=== PATIENT | female | born 1945 | race African-American/Black ===

== ENCOUNTER 2017-07-07 03:24 | Observation (INO) ==
[2017-07-07] MEDS ORDERED: 0.9 % Sodium Chloride 1,000 ML IVC ONE (04:03)
--- NOTE | 2017-07-07 04:07 | Emergency Department Note ---
Disposition Clinical Impression: Hyponatremia, Atrial fibrillation with RVR Left lower lobe pneumonia Qualifiers: Pneumonia type: due to unspecified organism Qualified Code(s): J18.1 - Lobar pneumonia, unspecified organism Disposition: Admitted As Inpatient Condition: Fair Referrals: NONE,PCP [Primary Care Provider] - Amarjit Brock, INTERNAL CONTROL SPECIALIST [Family Provider] - Forms: ED Satisfaction Letter Time of Disposition: 05:37 General Adult HPI - General Chief complaint: ED Dizziness Stated complaint: dizzy,and fall Time Seen by Provider: 07/07/17 03:47 Source: patient, family, EMS Mode of arrival: EMS Limitations: no limitations Nursing Notes Reviewed: Yes Vital Signs Reviewed: Yes - History of Present Illness HPI Narrative: Current over the patient and the daughter. Patient apparently got a bed to go to the bathroom and fell and could not get herself up. This is not a new occurrence but something that happens frequently. Patient mostly complains of weakness at home and stays in bed most of the time. No new symptom that family reports is a cough over the last couple of days. Patient denies any injury from the fall. Pt Subjective Complaint: Fall Onset (ago): hour(s) Pain Scale: 9 (Patient complains of severe pain but cannot localize it anywhere. Meanwhile she smiling while she tells me her pain is bad) Consistency: constant Associated symptoms: Reports: cough Treatments Prior to Arrival: none - Related Data Home Medications Medication Instructions Recorded Confirmed No Known Home Drugs 07/07/17 07/07/17 Allergies Allergy/AdvReac Type Severity Reaction Status Date / Time No Known Allergies Allergy Verified 07/07/17 05:00 All systems ED: reviewed and negative except as stated. Constitutional: Denies: fever, chills ENT ED: Denies: ear pain, throat pain, congestion Cardiovascular: Denies: chest pain, palpitations Respiratory: Reports: cough. Denies: dyspnea Gastrointestinal: Denies: abdominal pain, nausea, vomiting, diarrhea Genitourinary: Denies: urgency, dysuria, frequency Integumentary: Denies: rash Neurological: Denies: headache Past Medical History - Past Medical History Attestation: Yes The following information was validated with the patient. Source: patient, obtained from family, nursing notes reviewed Medical history: Reports: CVA, diabetes Psychiatric history: Reports: no psych history - Social History Smoking Status: Never smoker Physical Exam - General Limitations: no limitations General appearance: alert, in no apparent distress - Head Head exam: atraumatic, normocephalic, normal inspection - Eye Eye exam: Present: normal appearance, PERRL, EOMI. Absent: scleral icterus, conjunctival injection - ENT ENT exam: normal exam, normal oropharynx, mucous membranes moist, TM's normal bilaterally, normal external ear exam - Neck Neck exam: Present: normal inspection, full ROM. Absent: tenderness, meningismus - Chest Chest inspection: Present: normal inspection, symmetric chest wall rise. Absent : tenderness - Respiratory Respiratory exam: Present: normal lung sounds bilaterally. Absent: respiratory distress - Cardiovascular Cardiovascular exam: Present: tachycardia, irregular rhythm, normal heart sounds - Abdominal Exam Abdominal exam: Present: soft, Non-Tender, normal bowel sounds - Extremities Exam Extremities exam: Present: normal inspection. Absent: tenderness, pedal edema - Neurological Exam Neurological exam: Present: alert - Psychiatric Psychiatric exam: Present: normal affect, normal mood - Skin Skin exam: Present: warm, dry. Absent: rash Course Course Narrative: Patient reportedly fell after getting up and going to the bathroom at home in the middle the night. She could not get herself up. Family members found her about 1:00 in the morning. Last time they checked on her was about 8:00. It does not look like she sustained any injuries from the fall. This is not a new issue for the patient either. I am really not able to clarify as to why they presented today as opposed to any other time and she is on. There is a new history of cough. I am going to do a workup on the patient. Eventually will get her up and ambulate her. Disposition will be based on diagnostic results and reevaluation. - Reevaluation(s) Reevaluation #1: Workup shows left lower lobe pneumonia. Patient also has hyponatremia and she has atrial fibrillation. She does not see a doctor so we really do not know what her actual chronic medical conditions are because she does not see anybody. She will need to have these other things workup as well. I spoke with the hospitalist Dr. León and arranged to have her admitted to the hospital. She so far has been treated with normal saline and we will order Levaquin IV. Time: 05:34 - Consultations Consultation #1: Dr. León, hospitalist - we discussed the case and he is accepting the patient for admission to the hospital. Time: 05:30 Vital Signs Temperature 98.2 F 07/07/17 03:25 Pulse Rate 129 07/07/17 03:25 Respiratory Rate 19 07/07/17 03:25 Blood Pressure 112/86 07/07/17 03:25 O2 Sat by Pulse Oximetry 96 07/07/17 03:25 Temperature 98.2 F 07/07/17 03:25 Pulse Rate 126 07/07/17 05:22 Respiratory Rate 18 07/07/17 05:22 Blood Pressure 130/71 07/07/17 05:22 O2 Sat by Pulse Oximetry 94 07/07/17 05:22 Oxygen Delivery Oxygen Delivery Room Air Medical Decision Making - Medical Records Medical records reviewed: Yes I reviewed the patient's medical records. - Lab Data Lab results reviewed: Yes I reviewed the patient's lab results. Result diagrams: 07/07/17 03:40 07/07/17 03:40 Lab Results 07/07/17 07/07/17 07/07/17 Range/Units 03:40 03:40 03:40 WBC 23.2 H (4.3-11.1) K/mcL RBC 4.57 (3.82-4.97) M/mcL Hgb 13.3 (11.5-15.4) g/dL Hct 38.9 (35.3-44.9) % MCV 85.1 (83.0-100.0) fL MCH 29.1 (28.0-33.3) pg MCHC 34.2 (31.6-35.5) g/dL RDW 13.2 (11.5-14.5) % Plt Count 296 (140-400) K/mcL MPV 10.4 (9.4-12.4) fL Immature Gran % 0.6 (0-4) % Seg Neutrophils % 87.8 % Lymphocytes % 6.0 % Monocytes % 5.3 % Eosinophils % 0.0 % Basophils % 0.3 % Neutrophils # 20.4 H (1.6-8.9) K/mcL Lymphocytes # 1.4 (0.6-4.6) K/mcL Monocytes # 1.2 (0.0-1.3) K/mcL Eosinophils # 0.0 (0.0-0.6) K/mcL Basophils # 0.1 (0.0-0.2) K/mcL Sodium 126 L (136-145) mEq/L Potassium 3.3 L (3.5-5.1) mEq/L Chloride 85 L (98-107) mEq/L Carbon Dioxide 30 H (23-29) mEq/L BUN 22 (8-23) mg/dL Creatinine 1.35 H (0.60-1.20) mg/dL Est GFR ( Amer) 46 L (> 60) Est GFR (Non-Af Amer) 38 L (> 60) BUN/Creatinine Ratio 16 (6-26) Glucose 325 H (70-105) mg/dL Calculated Osmolality 278 L (280-300) Lactic Acid (0.5-2.2) mmol/L Calcium 9.2 (8.6-10.3) mg/dL Troponin I 0.03 (< 0.04) ng/mL B-Natriuretic Peptide 70 (Less than 100) pg/mL Urine Color (Yellow) Urine Clarity (Clear) Urine pH (5.0-8.0) pH Units Ur Specific [place] (1.010-1.025) Urine Protein (Neg-Trace) mg/dL Urine Glucose (UA) (Normal) mg/dL Urine Ketones (Negative) mg/dL Urine Blood (Negative) Urine Nitrite (Negative) Urine Bilirubin (Negative) Urine Urobilinogen (Normal) mg/dL Ur Leukocyte Esterase (Negative) Urine Microscopic RBC (0-3) per hpf Urine Microscopic WBC (0-3) per hpf Ur Squamous Epith Cells (None-Few) per lpf Ur Transition Epith Cell (None-Few) per hpf Urine Bacteria (None-Few) per hpf Hyaline Casts (None-Few) per lpf Urine Mucus (Few) Ur Culture Indicated? (NO) 07/07/17 07/07/17 Range/Units 03:40 04:22 WBC (4.3-11.1) K/mcL RBC (3.82-4.97) M/mcL Hgb (11.5-15.4) g/dL Hct (35.3-44.9) % MCV (83.0-100.0) fL MCH (28.0-33.3) pg MCHC (31.6-35.5) g/dL RDW (11.5-14.5) % Plt Count (140-400) K/mcL MPV (9.4-12.4) fL Immature Gran % (0-4) % Seg Neutrophils % % Lymphocytes % % Monocytes % % Eosinophils % % Basophils % % Neutrophils # (1.6-8.9) K/mcL Lymphocytes # (0.6-4.6) K/mcL Monocytes # (0.0-1.3) K/mcL Eosinophils # (0.0-0.6) K/mcL Basophils # (0.0-0.2) K/mcL Sodium (136-145) mEq/L Potassium (3.5-5.1) mEq/L Chloride (98-107) mEq/L Carbon Dioxide (23-29) mEq/L BUN (8-23) mg/dL Creatinine (0.60-1.20) mg/dL Est GFR ( Amer) (> 60) Est GFR (Non-Af Amer) (> 60) BUN/Creatinine Ratio (6-26) Glucose (70-105) mg/dL Calculated Osmolality (280-300) Lactic Acid 1.9 (0.5-2.2) mmol/L Calcium (8.6-10.3) mg/dL Troponin I (< 0.04) ng/mL B-Natriuretic Peptide (Less than 100) pg/mL Urine Color Yellow (Yellow) Urine Clarity Clear (Clear) Urine pH 6.0 (5.0-8.0) pH Units Ur Specific [place] 1.020 (1.010-1.025) Urine Protein 100 H (Neg-Trace) mg/dL Urine Glucose (UA) 500 H (Normal) mg/dL Urine Ketones Negative (Negative) mg/dL Urine Blood Negative (Negative) Urine Nitrite Negative (Negative) Urine Bilirubin Negative (Negative) Urine Urobilinogen Normal (Normal) mg/dL Ur Leukocyte Esterase Negative (Negative) Urine Microscopic RBC 0-3 (0-3) per hpf Urine Microscopic WBC 0-3 (0-3) per hpf Ur Squamous Epith Cells Moderate H (None-Few) per lpf Ur Transition Epith Cell Few (None-Few) per hpf Urine Bacteria Moderate H (None-Few) per hpf Hyaline Casts Few (None-Few) per lpf Urine Mucus Few (Few) Ur Culture Indicated? NO (NO) - Radiology Data Radiology results reviewed: Yes I reviewed the patient's radiology results. - EKG Data EKG #1 EKG attestation: Yes I reviewed and interpreted this EKG. EKG results narrative: EKG performed at 3:33 AM shows atrial fibrillation with rapid ventricular response at a rate of 119. Normal axis. Good R-wave progression across precordium. Nonspecific ST/T-wave abnormalities but no obvious ischemic changes. Other than the TN interval, intervals are within normal limits.
[2017-07-07 04:10] LABS: Basophils # 0.1 K/mcL (0.0-0.2); Basophils % 0.3 %; Hematocrit 38.9 % (35.3-44.9); Hemoglobin 13.3 g/dL (11.5-15.4); Immature Granulocytes % 0.6 % (0-4); Lymphocytes # 1.4 K/mcL (0.6-4.6); Mean Corpuscular HGB Conc 34.2 g/dL (31.6-35.5); Mean Corpuscular Hemoglobin 29.1 pg (28.0-33.3); Mean Corpuscular Volume 85.1 fL (83.0-100.0); Mean Platelet Volume 10.4 fL (9.4-12.4); Monocytes # 1.2 K/mcL (0.0-1.3); Monocytes % 5.3 %; Neutrophils # 20.4 K/mcL (1.6-8.9); Platelet Count 296 K/mcL (140-400); Red Blood Count 4.57 M/mcL (3.82-4.97); Red Cell Distribution Width 13.2 % (11.5-14.5); Segmented Neutrophils % 87.8 %
[2017-07-07 04:17] LABS: Calcium 9.2 mg/dL (8.6-10.3); Potassium 3.3 mEq/L (3.5-5.1)
[2017-07-07 04:21] LABS: Troponin I 0.03 ng/mL (< 0.04)
[2017-07-07 04:32] LABS: Bilirubin,Urine Negative (Negative); Blood,Urine Negative (Negative); Clarity,Urine Clear (Clear); Color,Urine Yellow (Yellow); Glucose,Urine (UA) 500 mg/dL (Normal); Ketones,Urine Negative (Negative); Leukocyte Esterase,Urine Negative (Negative); Nitrite,Urine Negative (Negative); Protein,Urine 100 mg/dL (Neg-Trace); Urobilinogen,Urine Normal (Normal)
[2017-07-07 04:37] LABS: Bacteria,Urine Moderate per hpf (None-Few); Hyaline Casts,Urine Few per lpf (None-Few); RBC,Urine 0-3 per hpf (0-3); Squamous Epithelial Cell,Urine Moderate per lpf (None-Few); WBC,Urine 0-3 per hpf (0-3)
[2017-07-07 04:38] LABS: Mucus,Urine Few (Few); Transitional Epi Cells,Urine Few per hpf (None-Few)
[2017-07-07] MEDS ORDERED: Levofloxacin 750 MG/150 ML 750 MG/150 ML BAG IVPB ONE (05:29)
[2017-07-07] MEDS ORDERED: Naloxone 0.4 MG/ML INJ IVP PRN (06:31)
[2017-07-07] MEDS ORDERED: 0.9 % Sodium Chloride 1,000 ML IVC SCH (06:31)
[2017-07-07] MEDS ORDERED: *HR* Digoxin 0.5 MG/2 ML AMPUL IVP ONE (07:10)
[2017-07-07] MEDS: 0.9 % Sodium Chloride w KCl 20 MEQ/1,000 ML MLS IVC SCH ×2 (08:19→20:41)
--- NOTE | 2017-07-07 11:51 | Internal Med History&Physical ---
Date of Encounter: 07/07/17 Time of Encounter: 11:15 Assessment and Plan (1) Fall Current visit: Yes Status: Acute Will order PT and OT evaluation. Qualifiers: Encounter type: initial encounter Qualified Code(s): W19.XXXA - Unspecified fall, initial encounter (2) Atrial fibrillation with RVR Current visit: Yes Status: Acute Duration unknown. She had regular rhythm on my examination. Suspect paroxysmal AF. An echocardiogram was ordered. TSH was normal at 0.755. Will start aspirin for history of CVA. Her fall risk makes her increased risk for complications from full anticoagulation medication. (3) DM2 (diabetes mellitus, type 2) Current visit: Yes Status: Acute Will check hemoglobin A1c and do Accu-Cheks with SSI. Qualifiers: Diabetes mellitus complication status: with kidney complications Diabetes mellitus complication detail: with chronic kidney disease Diabetes mellitus senior care insulin use: without coding quality coordinator use Chronic kidney disease stage: stage 3 (moderate) Qualified Code(s): E11.22 - Type 2 diabetes mellitus with diabetic chronic kidney disease; N18.3 - Chronic kidney disease, stage 3 ( moderate); N18.3 - Chronic kidney disease, stage 3 (moderate) (4) Hypokalemia Current visit: Yes Status: Acute Suspect secondary to reported vomiting and diarrhea. Will give IV fluids and supplemental potassium and monitor labs. (5) Leukocytosis Current visit: Yes Status: Acute Possible pneumonia left lower lung seen on chest x-ray. Will order CT to further evaluate. Levaquin was started in the emergency room. Qualifiers: Leukocytosis type: unspecified Qualified Code(s): D72.829 - Elevated white blood cell count, unspecified (6) Weight loss Current visit: Yes Status: Acute Will order CT chest abdomen and pelvis. Suspect poorly controlled DM 2. (7) Left lower lobe pneumonia Current visit: Yes Status: Acute We will continue antibiotics and probiotics as per above. Qualifiers: Pneumonia type: due to unspecified organism Qualified Code(s): J18.1 - Lobar pneumonia, unspecified organism (8) Hyponatremia Current visit: Yes Status: Acute At least partially due to hyperglycemia. We will give IV fluids and monitor labs. Internal Medicine - H&P: HPI Chief complaint: Fall Admitted From: Emergency Dept Plans for Post Hospital Care: Home History of present illness: Ms. Fleming is a 72 year old female who came to emergency room after her daughter found her in the floor at home at 0100. Patient reports she had attempted to go to the bathroom approximately 11 PM and had fallen. She did not call for help to other family members who live in the house because she " did not want to bother them". Her daughter found her and noted her left leg seemed to be in an unusual position so called the squad. She was evaluated in emergency room and admitted to [facility] for ongoing care needs. The patient denies significant injury from the present fall. Family reports she has fallen approximately once per month on average for the last 3-4 months. She typically uses a walker since she had a stroke approximately 20 years ago leaving her with right hemiparesis. She has not followed with a primary care provider for at least 15 years. She denies any seizures. Past Med Surg Social Fam HX - Past Medical History Medical history: CVA, diabetes Psychiatric history: no psych history - Social History Smoking Status: Never smoker Internal Medicine - H&P: Meds No Known Home Drugs 07/07/17 [History] 3 Allergy/AdvReac Type Severity Reaction Status Date / Time No Known Allergies Allergy Verified 07/07/17 05:00 All Systems PM: A 10-system review of systems was performed and is negative for pertinent findings except as documented above in the HPI. Review of systems: Gen.: Her daughter estimates she has lost approximately 30 pounds in the past 2 years, unintentionally Cardiovascular: She has history of hypertension but denies MO heart failure angina DVT or pulmonary embolus. She also denies previous history of atrial fibrillation which was found on EKG in emergency room. Respiratory: She smoked approximately age [age] never up to 1 pack per day. She denies chronic lung disease and does not use home oxygen GI: She had remote cholecystectomy. She denies disorders of her liver or exocrine pancreas. : She denies hematuria dysuria or kidney stones Neurologic: She had a stroke approximately 20 years ago leaving her with right hemiparesis. She is able to walk with a walker. Family reports increased weakness however over the past 1-2 years. Endocrine: She was diagnosed with DM 2 many years ago. She stop seeing her PCP approximately 15 years ago when she was informed that metformin was no longer adequately controlling her diabetes and she would need to start insulin shots. She does not check her blood sugars at all. She denies known thyroid disease. She is uncertain about her lipid status. Hematology/oncology: She denies blood disorders cancers or anemia Psychiatric: She denies anxiety depression or other mental health issues [place] skeletal: She has DJD but denies gout or other bone joint or muscle disorders. - Constitutional Vitals: Temp Pulse Resp BP Pulse Ox 98.3 F 106 18 114/75 95 07/07/17 06:51 07/07/17 06:51 07/07/17 06:51 07/07/17 06:51 07/07/17 06:51 Exam: Gen.: She is a well-developed well-nourished female lying in bed who appears in no acute distress HEENT: Head is atraumatic and normocephalic. Eyes: EOMI. There is no scleral icterus. Mouth: Mucosa is moist. Neck: Supple and nontender. There is no thyromegaly or adenopathy noted. Heart: Regular without murmurs gallops or ectopics Lungs: No wheezes or crackles are heard. Abdomen: Soft and nontender. No masses or guarding are noted. Extremities: There is no cyanosis edema or clubbing noted. Dorsalis pedis and posttibial pulses are trace palpable bilaterally. Neurologic: Mental status: She is able answer a few questions but seems to be a fair to poor historian overall. Most of history is supplied by family. Cranial nerves: Smile is symmetric. Forehead wrinkles bilaterally. Tongue protrudes midline. EOMI. Motor: There is no pronator drift with the left hand. She cannot pronate the right arm well because of previous stroke. She holds her right hand in a flexed position.. Cerebellar: Finger to nose is intact bilaterally. Skin: Warm and dry Internal Med - H&P Results - Labs CBC & Chem 7: 07/07/17 03:40 07/07/17 03:40 Labs: Cardiac Enzymes 07/07/17 Range/Units 07:51 Troponin I 0.07 H* (< 0.04) ng/mL - VTE Reasons for not Prescribing Prophylaxis: Refused by patient
[2017-07-07] MEDS: Magnesium Oxide 400 MG TABLET PO SCH (20:36)
[2017-07-08 03:51] LABS: Basophils # 0.1 K/mcL (0.0-0.2); Basophils % 0.3 %; Eosinophils % 0.2 %; Hematocrit 34.5 % (35.3-44.9); Hemoglobin 11.8 g/dL (11.5-15.4); Immature Granulocytes % 0.5 % (0-4); Lymphocytes # 1.5 K/mcL (0.6-4.6); Mean Corpuscular HGB Conc 34.2 g/dL (31.6-35.5); Mean Corpuscular Hemoglobin 29.1 pg (28.0-33.3); Mean Platelet Volume 10.4 fL (9.4-12.4); Monocytes % 5.2 %; Platelet Count 267 K/mcL (140-400); Red Blood Count 4.06 M/mcL (3.82-4.97); Segmented Neutrophils % 85.8 %
[2017-07-08 04:24] LABS: Alanine Aminotransferase 8 Units/L (7-52); Albumin 3.4 g/dL (3.5-5.7); Alkaline Phosphatase 55 Units/L (34-104); Aspartate Amino Transferase 16 Units/L (13-39); BUN/Creatinine Ratio 19 (6-26); Bilirubin,Total 0.6 mg/dL (0.3-1.0); Blood Urea Nitrogen 14 mg/dL (8-23); Calcium 8.7 mg/dL (8.6-10.3); Carbon Dioxide 27 mEq/L (23-29); Chloride 95 mEq/L (98-107); Chol/HDL Ratio 3.7 (0-4.9); Cholesterol 165 mg/dL (< 200); Globulin 3.4 g/dL (2.4-3.5); Glucose 308 mg/dL (70-105); HDL Cholesterol 45 mg/dL (40-59); LDL Cholesterol,Calculated 104 mg/dL (0-99); Osmolality,Calculated 286 (280-300); Potassium 3.3 mEq/L (3.5-5.1); Sodium 132 mEq/L (136-145); Total Protein 6.8 g/dL (6.4-8.9); Triglycerides 81 mg/dL (< 150); eGFR For African Americans > 60 (> 60); eGFR For Non-African Americans > 60 (> 60)
[2017-07-08] MEDS: Insulin LISPRO 300 UNITS/3 ML VIAL SQ SCH ×3 (07:36→16:39)
[2017-07-08] MEDS: Aspirin 81 MG TAB.CHEW PO SCH (07:36)
[2017-07-08] MEDS: Lactobacillus 1 EACH CAP.SPRINK PO SCH ×2 (07:36→19:52)
[2017-07-08] MEDS: Magnesium Oxide 400 MG TABLET PO SCH ×2 (07:36→19:52)
[2017-07-08] MEDS: 0.9 % Sodium Chloride w KCl 20 MEQ/1,000 ML MLS IVC SCH (07:39)
--- NOTE | 2017-07-08 09:56 | Internal Med Progress Note ---
Date of Encounter: 07/08/17 Time of Encounter: 09:45 - Assessment and plan (1) Fall Current Visit: Yes Status: Acute Assessment and plan: July 08. Continue PT and OT intervention. Qualifiers: Encounter type: initial encounter Qualified Code(s): W19.XXXA - Unspecified fall, initial encounter (2) Atrial fibrillation with RVR Current Visit: Yes Status: Acute Assessment and plan: July 08. Duration of atrial fibrillation unknown. It is paroxysmal. Echocardiogram report reviewed showing LVEF of 70%. There was increased thickness of the interventricular septum at 1.30 cm. Atria were normal in size. No significant valvular dysfunction was seen. Continue aspirin. Will add metoprolol. (3) DM2 (diabetes mellitus, type 2) Current Visit: Yes Status: Acute Assessment and plan: July 08. Hemoglobin A1c is pending. Continue Accu-Cheks with SSI. Qualifiers: Diabetes mellitus complication status: with kidney complications Diabetes mellitus complication detail: with chronic kidney disease Diabetes mellitus alf insulin use: without terminal worker use Chronic kidney disease stage: stage 3 (moderate) Qualified Code(s): E11.22 - Type 2 diabetes mellitus with diabetic chronic kidney disease; N18.3 - Chronic kidney disease, stage 3 ( moderate); N18.3 - Chronic kidney disease, stage 3 (moderate) (4) Hypokalemia Current Visit: Yes Status: Acute Assessment and plan: July 08. Potassium unchanged at 3.3. Will add ongoing supplemental potassium and monitor labs. (5) Leukocytosis Current Visit: Yes Status: Acute Assessment and plan: July 08. Improved to 18.6. Continue antibiotic and probiotic. Qualifiers: Leukocytosis type: unspecified Qualified Code(s): D72.829 - Elevated white blood cell count, unspecified (6) Weight loss Current Visit: Yes Status: Acute Assessment and plan: July 08. Chest, abdomen, and pelvis CT showed left basilar pneumonia but no acute pathology suggesting malignancy. (7) Left lower lobe pneumonia Current Visit: Yes Status: Acute Assessment and plan: July 08. Continue Levaquin and probiotic. Qualifiers: Pneumonia type: due to unspecified organism Qualified Code(s): J18.1 - Lobar pneumonia, unspecified organism (8) Hyponatremia Current Visit: Yes Status: Acute Assessment and plan: July 08. Improved. We will discontinue IV fluids. (9) Hypomagnesemia Current Visit: Yes Status: Acute Assessment and plan: July 08. Magnesium level returned low yesterday at 1.4. She was started on magnesium oxide. Continue to monitor labs. - Subjective Interval history: July 08. She has no new complaints and feels better. - Constitutional Vitals: Temp Pulse Resp BP Pulse Ox 98.6 F 86 18 149/71 90 07/08/17 06:20 07/08/17 06:20 07/08/17 06:20 07/08/17 06:20 07/08/17 06:20 Exam: She is sitting in a chair at bedside resting comfortably. Her affect is bright and cheerful. I reviewed her medications and lab results. Her heart rate has slowed to an acceptable rate. Internal Medicine: Result - Labs CBC & Chem 7: 07/08/17 03:30 07/08/17 03:30 Labs: Short CBC 07/08/17 Range/Units 03:30 WBC 18.6 H (4.3-11.1) K/mcL Hgb 11.8 D (11.5-15.4) g/dL Hct 34.5 L (35.3-44.9) % Plt Count 267 (140-400) K/mcL Neutrophils # 16.0 H (1.6-8.9) K/mcL BMP 07/08/17 03:30 Sodium 132 L Potassium 3.3 L Chloride 95 L Carbon Dioxide 27 BUN 14 Creatinine 0.73 Glucose 308 H Calcium 8.7 Liver Function 07/08/17 Range/Units 03:30 Total Bilirubin 0.6 (0.3-1.0) mg/dL AST 16 (13-39) Units/L ALT 8 (7-52) Units/L Alkaline Phosphatase 55 (34-104) Units/L Albumin 3.4 L (3.5-5.7) g/dL - Impressions Impressions Echocardiogram 07/07/17 07:09 Impressions: LVEF 70%. Normal LV chamber size and function. Mild asymmetric hypertrophy of the basal septum. Mild left ventricular diastolic dysfunction. Normal right ventricular structure and function. No evidence of pulmonary hypertension. No significant valvular dysfunction. Left Ventricular Wall Motion: Rest Echo Findings All wall segments showed normal motion. Findings: Study Quality * Technically adequate exam. ECG Findings * Normal sinus rhythm. Left Ventricle * LVEF 70%. * Normal LV chamber size and function. * Mild asymmetric hypertrophy of the basal septum. * Mild left ventricular diastolic dysfunction. Right Ventricle * Normal right ventricular structure and function. Left Atrium * Normal left atrial size. Right Atrium * Normal right atrial size. Interatrial Septum * No evidence of PFO by color Doppler. Aortic Valve * Trileaflet aortic valve with normal function. * No aortic regurgitation. * No aortic stenosis. Mitral Valve * Normal mitral valve structure and function. * No mitral regurgitation. * No mitral stenosis. Tricuspid Valve * Normal tricuspid valve structure and function. * Trace tricuspid regurgitation. * No evidence of pulmonary hypertension. Pulmonic Valve * Normal pulmonic valve structure and function. * No pulmonic regurgitation. Aorta * Normally sized aortic root. Pericardium * The pericardium appears normal. IVC * Normal IVC dimensions and inspiratory collapse. Pulmonary Artery * Normal visualized portions of the main pulmonary artery. Abdomen/Pelvis CT 07/07/17 12:12 IMPRESSION: 1. Irregular patchy consolidative density with with some pleural-parenchymal reticular densities in the posterior basal left lower lobe. Favor infectious etiology which would include atypical and mycobacterial pneumonia os. If this is chronic, it could represent an area of organizing pneumonia. 2. A 4 mm noncalcified posterior segment right upper lobe perihilar nodules. Please see follow-up recommendations below. 3. No acute infective or inflammatory process in the abdomen/pelvis. RECOMMENDATIONS: Fleischner Society guidelines for follow-up and management of incidentally detected pulmonary nodules: Single Solid Nodule: Nodule size less than 6 mm In a low-risk patient, no routine follow-up. In a high-risk patient, optional CT at 12 months. - Low risk patients include individuals with minimal or absent history of smoking and other known risk factors. - High risk patients include individuals with a history or smoking or known risk factors. Radiology 2017 http://pubs.rsna.org/doi/full/10.1148/[email or web address] D/ / Cade Perkins MD / Cade Perkins MD Interpreting Provider: Cade Perkins MD Chest CT 07/07/17 12:12 IMPRESSION: 1. Irregular patchy consolidative density with with some pleural-parenchymal reticular densities in the posterior basal left lower lobe. Favor infectious etiology which would include atypical and mycobacterial pneumonia os. If this is chronic, it could represent an area of organizing pneumonia. 2. A 4 mm noncalcified posterior segment right upper lobe perihilar nodules. Please see follow-up recommendations below. 3. No acute infective or inflammatory process in the abdomen/pelvis. RECOMMENDATIONS: Fleischner Society guidelines for follow-up and management of incidentally detected pulmonary nodules: Single Solid Nodule: Nodule size less than 6 mm In a low-risk patient, no routine follow-up. In a high-risk patient, optional CT at 12 months. - Low risk patients include individuals with minimal or absent history of smoking and other known risk factors. - High risk patients include individuals with a history or smoking or known risk factors. Radiology 2017 http://pubs.rsna.org/doi/full/10.1148/radiol.[email or web address] D/ / Cade Pekrins MD / Cade Perkins MD Interpreting Provider: Cade Perkins MD - VTE Reasons for not Prescribing Prophylaxis: Refused by patient Consult Discharge Plan - Plan Referrals: NONE,PCP [Primary Care Provider] - 1 week Amarjit Brock, NOXIOUS WEEDS AND PEST INSPECTOR [Family Provider] - 1 week
[2017-07-08 11:53] LABS: Hemoglobin A1C 9.3 %
--- NOTE | 2017-07-08 17:55 | Electrocardiograph Report ---
[address] [place], [place] [address] Test Date: 2017-07-07 Pat Name: Javy Fleming Department: 9201 Room: [facility] Gender: F Fraud Examiner: Shebly : 1945 Requested By: Neo Maria Order Number: [id number] Reading MD: Trena Briggs Measurements Intervals Proctor Rate: 119 P: MO: 0 QRS: 51 QRSD: 98 T: -23 QT: 303 QTc: 374 Interpretive Statements ATRIAL FIBRILLATION WITH RAPID VENTRICULAR RESPONSE NONSPECIFIC ST & T-WAVE ABNORMALITY Electronically Signed On 07-08-2017 17:53:47 EST by Trena Briggs
[2017-07-08] MEDS ORDERED: levoFLOXacin 250 MG TABLET PO SCH ×2 (18:15→19:00)
[2017-07-09 06:30] LABS: Basophils # 0.1 K/mcL (0.0-0.2); Basophils % 0.5 %; Eosinophils # 0.1 K/mcL (0.0-0.6); Eosinophils % 0.6 %; Hematocrit 35.1 % (35.3-44.9); Hemoglobin 11.8 g/dL (11.5-15.4); Immature Granulocytes % 0.5 % (0-4); Lymphocytes # 1.9 K/mcL (0.6-4.6); Lymphocytes % 14.4 %; Mean Corpuscular HGB Conc 33.6 g/dL (31.6-35.5); Mean Corpuscular Hemoglobin 28.9 pg (28.0-33.3); Mean Corpuscular Volume 85.8 fL (83.0-100.0); Mean Platelet Volume 10.5 fL (9.4-12.4); Monocytes # 0.8 K/mcL (0.0-1.3); Monocytes % 5.8 %; Neutrophils # 10.2 K/mcL (1.6-8.9); Platelet Count 304 K/mcL (140-400); Red Blood Count 4.09 M/mcL (3.82-4.97); Red Cell Distribution Width 13.2 % (11.5-14.5); Segmented Neutrophils % 78.2 %
[2017-07-09 07:03] LABS: BUN/Creatinine Ratio 13 (6-26); Blood Urea Nitrogen 9 mg/dL (8-23); Carbon Dioxide 31 mEq/L (23-29); Chloride 95 mEq/L (98-107); Glucose 248 mg/dL (70-105); Magnesium 1.6 mg/dL (1.6-2.6); Osmolality,Calculated 283 (280-300); Potassium 3.9 mEq/L (3.5-5.1); Sodium 133 mEq/L (136-145); eGFR For African Americans > 60 (> 60); eGFR For Non-African Americans > 60 (> 60)
[2017-07-09] MEDS: Magnesium Oxide 400 MG TABLET PO SCH (07:46)
[2017-07-09] MEDS: Lactobacillus 1 EACH CAP.SPRINK PO SCH (07:46)
[2017-07-09] MEDS: Insulin LISPRO 300 UNITS/3 ML VIAL SQ SCH ×2 (07:47→11:52)
[2017-07-09] MEDS: Aspirin 81 MG TAB.CHEW PO SCH (07:47)
[2017-07-09 08:09] LABS: Platelet Estimate Normal (Normal)
[2017-07-09] MEDS ORDERED: Dextrose Gel 15 GM PO PRN ×2 (08:24)
[2017-07-09] MEDS ORDERED: *HR* Dextrose 50 % in Water (Syg) 50 ML SYRINGE IVP PRN (08:24)
[2017-07-09] MEDS ORDERED: D5% in Water 1,000 ML IVC PRN (08:24)
[2017-07-09] MEDS ORDERED: Levofloxacin 750 MG/150 ML 750 MG/150 ML BAG IVPB SCH (09:00)
--- NOTE | 2017-07-09 14:06 | Internal Med Progress Note ---
Date of Encounter: 07/09/17 Time of Encounter: 13:55 - Assessment and plan (1) Fall Current Visit: Yes Status: Acute Assessment and plan: July 08. Continue PT and OT intervention. Qualifiers: Encounter type: initial encounter Qualified Code(s): W19.XXXA - Unspecified fall, initial encounter (2) Atrial fibrillation with RVR Current Visit: Yes Status: Acute Assessment and plan: July 08. Duration of atrial fibrillation unknown. It is paroxysmal. Echocardiogram report reviewed showing LVEF of 70%. There was increased thickness of the interventricular septum at 1.30 cm. Atria were normal in size. No significant valvular dysfunction was seen. Continue aspirin. Will add metoprolol. July 09. Her ventricular rate has slowed to satisfactory range. Will add Xarelto for CVA prophylaxis. (3) DM2 (diabetes mellitus, type 2) Current Visit: Yes Status: Acute Assessment and plan: July 08. Hemoglobin A1c is pending. Continue Accu-Cheks with SSI. July 09. Hemoglobin A1c is elevated at 9.3%. Will add metformin and continue Accu-Cheks with SSI. Qualifiers: Diabetes mellitus complication status: with kidney complications Diabetes mellitus complication detail: with chronic kidney disease Diabetes mellitus long term care phlebotomist insulin use: without usp use Chronic kidney disease stage: stage 3 (moderate) Qualified Code(s): E11.22 - Type 2 diabetes mellitus with diabetic chronic kidney disease; N18.3 - Chronic kidney disease, stage 3 ( moderate); N18.3 - Chronic kidney disease, stage 3 (moderate) (4) Hypokalemia Current Visit: Yes Status: Acute Assessment and plan: July 08. Potassium unchanged at 3.3. Will add ongoing supplemental potassium and monitor labs. July 09. Potassium normalized to 3.9. We will reduce supplemental potassium and monitor labs. (5) Leukocytosis Current Visit: Yes Status: Acute Assessment and plan: July 08. Improved to 18.6. Continue antibiotic and probiotic. July 09. WBC improved to 13.1. Continue present regimen Qualifiers: Leukocytosis type: unspecified Qualified Code(s): D72.829 - Elevated white blood cell count, unspecified (6) Weight loss Current Visit: Yes Status: Acute Assessment and plan: July 08. Chest, abdomen, and pelvis CT showed left basilar pneumonia but no acute pathology suggesting malignancy. (7) Left lower lobe pneumonia Current Visit: Yes Status: Acute Assessment and plan: July 08. Continue Levaquin and probiotic. Qualifiers: Pneumonia type: due to unspecified organism Qualified Code(s): J18.1 - Lobar pneumonia, unspecified organism (8) Hyponatremia Current Visit: Yes Status: Acute Assessment and plan: July 08. Improved. We will discontinue IV fluids. July 09. Sodium further improved 133. Continue present regimen (9) Hypomagnesemia Current Visit: Yes Status: Acute Assessment and plan: July 08. Magnesium level returned low yesterday at 1.4. She was started on magnesium oxide. Continue to monitor labs. July 09. Magnesium level normal at 1.6. Continue supplement and monitor labs. - Subjective Interval history: July 08. She has no new complaints and feels better. July 09. She has no new complaints. - Constitutional Vitals: Temp Pulse Resp BP Pulse Ox 97.2 F L 76 16 148/67 94 07/09/17 10:07/09/17 10:00 07/09/17 10:00 07/09/17 10:07/09/17 10:00 Exam: She is resting comfortably in a chair at bedside and appears in no acute distress. Her affect is bright and cheerful. I reviewed her medications and lab results. Internal Medicine: Result - Labs CBC & Chem 7: 07/09/17 05:44 07/09/17 05:44 Labs: Short CBC 07/09/17 Range/Units 05:44 WBC 13.1 H (4.3-11.1) K/mcL Hgb 11.8 (11.5-15.4) g/dL Hct 35.1 L (35.3-44.9) % Plt Count 304 (140-400) K/mcL Neutrophils # 10.2 H (1.6-8.9) K/mcL BMP 07/09/17 05:44 Sodium 133 L Potassium 3.9 Chloride 95 L Carbon Dioxide 31 H BUN 9 Creatinine 0.68 Glucose 248 H Calcium 9.0 - VTE Reasons for not Prescribing Prophylaxis: Refused by patient Consult Discharge Plan - Plan Referrals: NONE,PCP [Primary Care Provider] - 1 week Amarjit Brock, RIP/MOULD OPERATOR [Family Provider] - 1 week
[2017-07-09 15:14] VITALS: BP 117/68
--- NOTE | 2017-07-09 15:27 | Discharge Summary ---
Date of Encounter: 07/09/17 Time of Encounter: 13:55 - Discharge Diagnosis (1) Fall Priority: Primary Status: Acute Qualifiers: Encounter type: initial encounter Qualified Code(s): W19.XXXA - Unspecified fall, initial encounter (2) Atrial fibrillation with RVR Priority: Secondary Status: Acute (3) DM2 (diabetes mellitus, type 2) Priority: Secondary Status: Acute Qualifiers: Diabetes mellitus complication status: with kidney complications Diabetes mellitus complication detail: with chronic kidney disease Diabetes mellitus senior living insulin use: without petroleum terminal plant operator use Chronic kidney disease stage: stage 3 (moderate) Qualified Code(s): E11.22 - Type 2 diabetes mellitus with diabetic chronic kidney disease; N18.3 - Chronic kidney disease, stage 3 ( moderate); N18.3 - Chronic kidney disease, stage 3 (moderate) (4) Hypokalemia Priority: Secondary Status: Resolved (5) Leukocytosis Priority: Secondary Status: Acute Qualifiers: Leukocytosis type: unspecified Qualified Code(s): D72.829 - Elevated white blood cell count, unspecified (6) Weight loss Priority: Secondary Status: Acute (7) Left lower lobe pneumonia Priority: Secondary Status: Acute Qualifiers: Pneumonia type: due to unspecified organism Qualified Code(s): J18.1 - Lobar pneumonia, unspecified organism (8) Hyponatremia Priority: Secondary Status: Acute (9) Hypomagnesemia Priority: Secondary Status: Acute Hospital course: Ms. Fleming is a 72 year old female who came to emergency room after her daughter found her in the floor at home at 0100. Patient reports she had attempted to go to the bathroom approximately 11 PM and had fallen. She did not call for help to other family members who live in the house because she " did not want to bother them". Her daughter found her and noted her left leg seemed to be in an unusual position so called the squad. She was evaluated in emergency room and admitted to [facility] for ongoing care needs. Initial orders were written by the emergency room physician. I saw her on July 07 and performed a history and physical. She had physical therapy and occupational therapy evaluation with ongoing interventions. She made satisfactory progress. It was felt she would benefit from swing bed stay for additional therapy. She was started on Xarelto for paroxysmal atrial fibrillation. An echocardiogram was ordered to further evaluate. This showed LVEF of 70% with no significant valvular abnormalities. The interventricular septum thickness measurement was elevated at 1.30. Posterior wall thickness measurement was normal at 1.0 cm. Left atrial size was normal at 2.50 cm. She was started on metoprolol and her paroxysms lessened in frequency. Hemoglobin A1c returned elevated at 9.3%. She was started on Glucophage and had Accu-Cheks with SSI. Hypokalemia was treated with supplemental potassium. Her potassium normalized to 3.9 by day of discharge into swing bed. Chest CT was done to further evaluate pneumonia. There was no additional worrisome pathology seen. She was started on Levaquin and this will be continued in swing bed. Abdominal/pelvis CT done with chest CT showed no significant pathology to explain weight loss. Her sodium level improved to 133 by day of discharge. On July 09 arrangements were complete for her to be discharged to swing bed for ongoing care needs. - Time Spent with Patient Total time spent providing and/or coordinating discharge services: - Discharge Medications Home Medications: Aspirin 81 mg PO DAILY tab.chew 07/09/17 [Rx] Insulin LISPRO [HumaLOG] 0 units SQ TIDAC vial 07/09/17 [Rx] Lactobacillus [Culturelle] 1 each PO BID cap.sprink 07/09/17 [Rx] Magnesium Oxide [Mag-Ox] 400 mg PO DAILY tablet 07/09/17 [Rx] Metoprolol [Lopressor] 25 mg PO BID tablet 07/09/17 [Rx] Naloxone [Narcan] 0.4 mg IVP Q2MIN PRN inj 07/09/17 [Rx] Potassium Chloride 20 meq PO DAILY tab.er.prt 07/09/17 [Rx] Rivaroxaban [Xarelto] 10 mg PO 1700 tablet 07/09/17 [Rx] levoFLOXacin [Levaquin] 750 mg PO Q24H 3 Days tablet 07/09/17 [Rx] metFORMIN [Glucophage] 500 mg PO BIDWM tablet 07/09/17 [Rx] Allergies/Adverse Reactions: 3 Allergy/AdvReac Type Severity Reaction Status Date / Time No Known Allergies Allergy Verified 07/07/17 05:00 Date of admission: 07/07/17 06:22 Primary care physician: PCP NONE Consults: 07/07/17 12:12 Consult to Occupational Therapy [CONS] Routine Comment: Evaluate, develop and implement POC Reason for Consult: Weakness and falls Consult to Physical Therapy [CONS] Routine Comment: Evaluate, develop and implement POC Reason for Consult: Weakness and falls - Constitutional Vitals: Temp Pulse Resp BP Pulse Ox 98.5 F 77 17 117/68 99 07/09/17 14:00 07/09/17 14:00 07/09/17 14:00 07/09/17 14:00 07/09/17 14:00 - Patient Status Disposition: Transfer Hospital Swing Bed Condition: Fair Functional capacity at discharge: uses cane/walker - Discharge Instructions - Diet and Activity Activity: as per physical therapy Diet: diabetic diet - VTE Reasons for not Prescribing Prophylaxis: Refused by patient
[2017-07-09] MEDS ORDERED: *HR* Rivaroxaban 10 MG TABLET PO SCH (17:00)
[2017-07-09] MEDS ORDERED: *HR* Metformin 500 MG TABLET PO SCH (17:00)
[2017-07-09] MEDS ORDERED: Insulin LISPRO 300 UNITS/3 ML VIAL SQ SCH (21:00)
[2017-07-10] MEDS ORDERED: Magnesium Oxide 400 MG TABLET PO SCH (09:00)
== END 2017-07-09 18:10 | disposition other institution (70) ==
LOC: EMEROOPIK 03:24 → INPPIK 03:24
PROVIDERS: ADMIT Internal Medicine; ATTEND Internal Medicine

== ENCOUNTER 2017-07-29 14:40 | Inpatient (IN) ==
[2017-07-29] MEDS ORDERED: D5% in Water 1,000 ML IVC PRN (17:49)
[2017-07-29] MEDS ORDERED: Dextrose Gel 15 GM PO PRN ×2 (17:49)
[2017-07-29] MEDS ORDERED: *HR* Dextrose 50 % in Water (Syg) 50 ML SYRINGE IVP PRN (17:49)
[2017-07-29] MEDS: *HR* Rivaroxaban 15 MG TABLET PO SCH (18:50)
[2017-07-30 04:47] LABS: Basophils % 0.4 %; Eosinophils # 0.3 K/mcL (0.0-0.6); Hematocrit 29.5 % (35.3-44.9); Hemoglobin 9.8 g/dL (11.5-15.4); Immature Granulocytes % 0.4 % (0-4); Lymphocytes # 1.4 K/mcL (0.6-4.6); Lymphocytes % 14.3 %; Mean Corpuscular HGB Conc 33.2 g/dL (31.6-35.5); Mean Corpuscular Hemoglobin 29.1 pg (28.0-33.3); Mean Corpuscular Volume 87.5 fL (83.0-100.0); Mean Platelet Volume 9.7 fL (9.4-12.4); Monocytes % 10.7 %; Neutrophils # 6.9 K/mcL (1.6-8.9); Platelet Count 297 K/mcL (140-400); Red Blood Count 3.37 M/mcL (3.82-4.97); Red Cell Distribution Width 13.7 % (11.5-14.5); Segmented Neutrophils % 71.2 %
[2017-07-30 04:54] LABS: Prothrombin Time 22.3 Seconds (9.4-12.1)
[2017-07-30 04:57] LABS: Activated Partial Thrombo Time 42.2 Seconds (26.0-36.0)
[2017-07-30 05:07] LABS: BUN/Creatinine Ratio 26 (6-26); Blood Urea Nitrogen 15 mg/dL (8-23); Calcium 8.5 mg/dL (8.6-10.3); Carbon Dioxide 30 mEq/L (23-29); Chloride 97 mEq/L (98-107); Glucose 190 mg/dL (70-105); Osmolality,Calculated 284 (280-300); Potassium 3.7 mEq/L (3.5-5.1); Sodium 134 mEq/L (136-145); eGFR For African Americans > 60 (> 60); eGFR For Non-African Americans > 60 (> 60)
[2017-07-30] MEDS: Insulin LISPRO 300 UNITS/3 ML VIAL SQ SCH ×3 (07:40→16:47)
[2017-07-30] MEDS: *HR* Metformin 500 MG TABLET PO SCH ×2 (07:58→16:46)
[2017-07-30] MEDS: Metoprolol XL (24 HR) Succ 25 MG TAB.ER.24H PO SCH (09:24)
[2017-07-30] MEDS: Aspirin 81 MG TAB.CHEW PO SCH (09:25)
[2017-07-30] MEDS: *HR* OxyCODONE Immed Rel 5 MG TABLET PO PRN ×2 (11:48→22:06)
--- NOTE | 2017-07-30 12:28 | Internal Med History&Physical ---
Date of Encounter: 07/30/17 Time of Encounter: 12:05 Assessment and Plan (1) Hip fracture, intertrochanteric Current visit: No Status: Acute Continue PT and OT intervention with Xarelto for DVT prophylaxis. Qualifiers: Encounter type: initial encounter Fracture type: closed Fracture alignment: displaced Laterality: right Qualified Code(s): S72.141A - Displaced intertrochanteric fracture of right femur, initial encounter for closed fracture (2) Postoperative anemia due to acute blood loss Current visit: No Status: Acute Continue to monitor CBC. (3) Hypertension Current visit: Yes Status: Chronic Continue Toprol Qualifiers: Hypertension type: essential hypertension Qualified Code(s): I10 - Essential (primary) hypertension (4) Atrial fibrillation Current visit: No Status: Chronic Continue Xarelto Qualifiers: Atrial fibrillation type: paroxysmal Qualified Code(s): I48.0 - Paroxysmal atrial fibrillation Internal Medicine - H&P: HPI Chief complaint: Hip fracture Admitted From: Hospital to Hospital Transfer Plans for Post Hospital Care: Home History of present illness: Ms. Fleming is a 72 year old female who was hospitalized at [facility] July 24 after a fall at home resulting in right intertrochanteric fracture. She underwent intramedullary nail fixation repair. Her postoperative course was unremarkable and she was admitted [facility] swing bed for ongoing care needs. She states she was using her walker at the time of the fall. She has DJD but denies gout or other bone joint or muscle disorders. She had been hospitalized at [facility] earlier this month after a fall at home. She was in acute-care July 07- and in swing bed July 09. Past Med Surg Social Fam HX - Past Medical History Medical history: atrial fibrillation, CVA, diabetes, hypertension Psychiatric history: no psych history - Past Surgical History Surgical History: cholecystectomy - Social History Smoking Status: Never smoker Smokeless Tobacco Status: No Alcohol use: none Drug use: none - Family History Daughter Hx Family Endocrine Disorder: Yes Son Hx Family Endocrine Disorder: Yes Internal Medicine - H&P: Meds Aspirin 81 mg PO Q48H 365 Days tab.chew 07/17/17 [Rx] Metoprolol XL (24 HR) Succ [Toprol Xl] 25 mg PO DAILY #30 tab.er.24h 07/17/17 [ Rx] metFORMIN [Glucophage] 500 mg PO BIDWM #60 tablet 07/17/17 [Rx] Insulin LISPRO [HumaLOG] 0 units SQ TIDAC PRN 07/24/17 [History] OxyCODONE Immed Rel [Roxicodone 5 MG] 5 mg PO Q6HR PRN 3 Days #12 tablet [Rx] Rivaroxaban [Xarelto] 15 mg PO QPM tablet 07/29/17 [Rx] 3 Allergy/AdvReac Type Severity Reaction Status Date / Time No Known Allergies Allergy Verified 07/07/17 05:00 All Systems PM: A 10-system review of systems was performed and is negative for pertinent findings except as documented above in the HPI. Review of systems: Review of systems from her 07/07/2017 [facility] hospitalization were reviewed and revised as below. Gen.: Her daughter estimates she has lost approximately 30 pounds in the past 2 years, unintentionally. TSH and CT of chest, abdomen, and pelvis done during her recent [facility] stay did not show obvious etiology for weight loss. Cardiovascular: She has history of hypertension but denies VT heart failure angina DVT or pulmonary embolus. She has paroxysmal AF and was placed on Xarelto during her recent [facility] hospitalization. Respiratory: She smoked approximately age [age] never up to 1 pack per day. She denies chronic lung disease and does not use home oxygen GI: She had remote cholecystectomy. She denies disorders of her liver or exocrine pancreas. : She denies hematuria dysuria or kidney stones Neurologic: She had a stroke approximately 20 years ago leaving her with right hemiparesis. She is able to walk with a walker. She was started on aspirin 81 mg daily during her recent [facility] hospitalization. Endocrine: She was diagnosed with DM 2 many years ago. She stop seeing her PCP approximately 15 years ago when she was informed that metformin was no longer adequately controlling her diabetes and she would need to start insulin shots. She does not check her blood sugars at all. She denies known thyroid disease. She does not have hyperlipidemia Hematology/oncology: She denies blood disorders or cancers. She has developed anemia postoperatively. Psychiatric: She denies anxiety depression or other mental health issues Musko skeletal: As per history of present illness - Constitutional Vitals: Temp Pulse Resp BP Pulse Ox 98.7 F 88 20 102/57 96 07/30/17 07:06 07/30/17 09:22 07/30/17 07:06 07/30/17 09:22 07/30/17 09:22 Exam: Gen.: She is a well developed well-nourished female lying in bed who appears in no acute distress HEENT: Head is atraumatic and normocephalic. Eyes: EOMI. There is no scleral icterus. Mouth: Mucosa is moist. Neck: Supple and nontender. There is no thyromegaly or adenopathy noted. Heart: Regular without murmurs gallops or ectopics Lungs: No wheezes or crackles are heard. Abdomen: Soft and nontender. No masses or guarding are noted. Extremities: There is no cyanosis edema or clubbing noted. Dorsalis pedis and posterior tibial pulses are trace to 1+ palpable bilaterally. She has a surgical dressing over the right lateral thigh. Neurologic: Mental status: She is talkative and a good historian. Cranial nerves: Smile is symmetric. Forehead wrinkles bilaterally. Tongue protrudes midline. EOMI. Motor: There is no pronator drift. Cerebellar: Finger to nose is intact bilaterally. Skin: Warm and dry Internal Med - H&P Results - Labs CBC & Chem 7: 07/30/17 04:14 07/30/17 04:14 Labs: Short CBC 07/30/17 Range/Units 04:14 WBC 9.7 (4.3-11.1) K/mcL Hgb 9.8 L (11.5-15.4) g/dL Hct 29.5 L (35.3-44.9) % Plt Count 297 (140-400) K/mcL Neutrophils # 6.9 (1.6-8.9) K/mcL BMP 07/30/17 04:14 Sodium 134 L Potassium 3.7 Chloride 97 L Carbon Dioxide 30 H BUN 15 Creatinine 0.57 L Glucose 190 H Calcium 8.5 L
[2017-07-30] MEDS: *HR* Rivaroxaban 15 MG TABLET PO SCH (18:01)
[2017-07-31] MEDS: *HR* OxyCODONE Immed Rel 5 MG TABLET PO PRN (04:58)
[2017-07-31] MEDS: Metoprolol XL (24 HR) Succ 25 MG TAB.ER.24H PO SCH (08:40)
[2017-07-31] MEDS: Insulin LISPRO 300 UNITS/3 ML VIAL SQ SCH ×3 (08:40→17:03)
[2017-07-31] MEDS: *HR* Metformin 500 MG TABLET PO SCH ×2 (08:40→17:12)
--- NOTE | 2017-07-31 11:39 | Internal Med Progress Note ---
Date of Encounter: 07/31/17 Time of Encounter: 11:30 - Assessment and plan (1) Hip fracture, intertrochanteric Current Visit: No Status: Acute Assessment and plan: July 31. Continue therapy intervention and Xarelto. Qualifiers: Encounter type: initial encounter Fracture type: closed Fracture alignment: displaced Laterality: right Qualified Code(s): S72.141A - Displaced intertrochanteric fracture of right femur, initial encounter for closed fracture (2) Postoperative anemia due to acute blood loss Current Visit: No Status: Acute Assessment and plan: July 31. We will monitor CBC. (3) Hypertension Current Visit: Yes Status: Chronic Assessment and plan: July 31. Continue Toprol Qualifiers: Hypertension type: essential hypertension Qualified Code(s): I10 - Essential (primary) hypertension (4) Atrial fibrillation Current Visit: No Status: Chronic Assessment and plan: July 31. Continue Xarelto Qualifiers: Atrial fibrillation type: paroxysmal Qualified Code(s): I48.0 - Paroxysmal atrial fibrillation - Subjective Interval history: July 31. She has no new complaints. She is having ongoing pain even at rest in her right hip. She denies constipation. - Constitutional Vitals: Temp Pulse Resp BP Pulse Ox 98.3 F 77 16 106/61 92 07/31/17 07:25 07/31/17 07:25 07/31/17 07:25 07/31/17 07:25 07/31/17 07:25 Exam: She is sitting in a chair at bedside and appears in mild discomfort. Her conversation is appropriate. I reviewed her medications and lab results. Internal Medicine: Result - Labs CBC & Chem 7: 07/30/17 04:14 07/30/17 04:14 - ABG Interpretation ABG results: PT/INR, D-dimer PT 22.3 Seconds (9.4-12.1) H D 07/30/17 04:14 Consult Discharge Plan - Plan Referrals: NONE,PCP [Primary Care Provider] - 1 week Amarjit Brock, PROFESSOR OF GENETICS [Family Provider] - 1 week
[2017-07-31] MEDS: *HR* Rivaroxaban 15 MG TABLET PO SCH (17:12)
[2017-08-01] MEDS: Insulin LISPRO 300 UNITS/3 ML VIAL SQ SCH ×3 (08:36→16:42)
[2017-08-01] MEDS: Aspirin 81 MG TAB.CHEW PO SCH (08:37)
[2017-08-01] MEDS: *HR* Metformin 500 MG TABLET PO SCH ×2 (08:37→17:33)
[2017-08-01] MEDS: Metoprolol XL (24 HR) Succ 25 MG TAB.ER.24H PO SCH (08:37)
[2017-08-01] MEDS: *HR* Rivaroxaban 15 MG TABLET PO SCH (17:33)
[2017-08-01] MEDS: *HR* OxyCODONE Immed Rel 5 MG TABLET PO PRN (18:29)
[2017-08-02] MEDS: *HR* OxyCODONE Immed Rel 5 MG TABLET PO PRN ×3 (06:01→18:26)
[2017-08-02] MEDS: *HR* Metformin 500 MG TABLET PO SCH ×2 (09:46→18:26)
[2017-08-02] MEDS: Metoprolol XL (24 HR) Succ 25 MG TAB.ER.24H PO SCH (09:46)
[2017-08-02] MEDS: Insulin LISPRO 300 UNITS/3 ML VIAL SQ SCH ×3 (09:48→18:27)
[2017-08-02] MEDS: *HR* Rivaroxaban 15 MG TABLET PO SCH (18:26)
[2017-08-02 19:40] LABS: Bilirubin,Urine Small (Negative); Blood,Urine Negative (Negative); Clarity,Urine Slightly Cloudy (Clear); Color,Urine Dark Yellow (Yellow); Glucose,Urine (UA) Normal (Normal); Ketones,Urine Negative (Negative); Leukocyte Esterase,Urine Negative (Negative); Nitrite,Urine Negative (Negative); Protein,Urine Trace mg/dL (Neg-Trace); Specific Gravity,Urine 1.015 (1.010-1.025); Urobilinogen,Urine Normal (Normal)
[2017-08-02 19:54] LABS: Mucus,Urine Moderate (Few); Squamous Epithelial Cell,Urine Many per lpf (None-Few)
[2017-08-02 19:55] LABS: Hyaline Casts,Urine Few per lpf (None-Few)
[2017-08-02 19:56] LABS: RBC,Urine 0-3 per hpf (0-3); WBC,Urine 0-3 per hpf (0-3)
[2017-08-02 19:57] LABS: Bacteria,Urine Few per hpf (None-Few)
[2017-08-03] MEDS: Metoprolol XL (24 HR) Succ 25 MG TAB.ER.24H PO SCH (08:58)
[2017-08-03] MEDS: Aspirin 81 MG TAB.CHEW PO SCH (08:58)
[2017-08-03] MEDS: Insulin LISPRO 300 UNITS/3 ML VIAL SQ SCH ×3 (08:58→17:35)
[2017-08-03] MEDS: *HR* Metformin 500 MG TABLET PO SCH ×2 (08:58→17:50)
[2017-08-03] MEDS ORDERED: Ondansetron ODT 4 MG TAB.RAPDIS SL PRN (12:24)
[2017-08-03] MEDS: *HR* OxyCODONE Immed Rel 5 MG TABLET PO PRN (12:31)
--- NOTE | 2017-08-03 16:17 | Internal Med Progress Note ---
Date of Encounter: 08/03/17 Time of Encounter: 16:10 - Assessment and plan (1) Hip fracture, intertrochanteric Current Visit: No Status: Acute Assessment and plan: July 31. Continue therapy intervention and Xarelto. Qualifiers: Encounter type: initial encounter Fracture type: closed Fracture alignment: displaced Laterality: right Qualified Code(s): S72.141A - Displaced intertrochanteric fracture of right femur, initial encounter for closed fracture (2) Postoperative anemia due to acute blood loss Current Visit: No Status: Acute Assessment and plan: July 31. We will monitor CBC. August 03. We will recheck CBC in a.m. (3) Hypertension Current Visit: Yes Status: Chronic Assessment and plan: July 31. Continue Toprol August 03. Blood pressure satisfactory. Continue Toprol Qualifiers: Hypertension type: essential hypertension Qualified Code(s): I10 - Essential (primary) hypertension (4) Atrial fibrillation Current Visit: No Status: Chronic Assessment and plan: July 31. Continue Xarelto Qualifiers: Atrial fibrillation type: paroxysmal Qualified Code(s): I48.0 - Paroxysmal atrial fibrillation - Subjective Interval history: July 31. She has no new complaints. She is having ongoing pain even at rest in her right hip. She denies constipation. August 03. She has no new complaints and feels well. - Constitutional Vitals: Temp Pulse Resp BP Pulse Ox 97.6 F 79 18 147/69 95 08/03/17 06:56 08/03/17 06:56 08/03/17 06:56 08/03/17 06:56 08/03/17 06:56 Exam: She is resting comfortably in bed and appears in no acute distress. Her affect is bright and cheerful. I reviewed her medications and lab results. Internal Medicine: Result - Labs CBC & Chem 7: 07/30/17 04:14 07/30/17 04:14 Labs: Urine 08/02/17 Range/Units 19:30 Urine Color Dark Yellow (Yellow) Urine Clarity Slightly Cloudy A (Clear) Urine pH 5.0 (5.0-8.0) pH Units Ur Specific Dane 1.015 (1.010-1.025) Urine Protein Trace (Neg-Trace) mg/dL Urine Glucose (UA) Normal (Normal) mg/dL - ABG Interpretation ABG results: PT/INR, D-dimer PT 22.3 Seconds (9.4-12.1) H D 07/30/17 04:14 Consult Discharge Plan - Plan Referrals: NONE,PCP [Primary Care Provider] - 1 week Amarjit Brock, LOG MANAGER [Family Provider] - 1 week
[2017-08-03] MEDS: *HR* Rivaroxaban 15 MG TABLET PO SCH (17:50)
[2017-08-04 07:06] LABS: Basophils # 0.1 K/mcL (0.0-0.2); Basophils % 0.5 %; Eosinophils # 0.2 K/mcL (0.0-0.6); Eosinophils % 2.2 %; Hematocrit 30.5 % (35.3-44.9); Immature Granulocytes % 0.3 % (0-4); Lymphocytes # 1.4 K/mcL (0.6-4.6); Lymphocytes % 13.6 %; Mean Corpuscular HGB Conc 32.8 g/dL (31.6-35.5); Mean Corpuscular Hemoglobin 29.2 pg (28.0-33.3); Mean Corpuscular Volume 89.2 fL (83.0-100.0); Mean Platelet Volume 9.2 fL (9.4-12.4); Monocytes # 0.9 K/mcL (0.0-1.3); Monocytes % 8.5 %; Neutrophils # 7.5 K/mcL (1.6-8.9); Platelet Count 364 K/mcL (140-400); Red Blood Count 3.42 M/mcL (3.82-4.97); Segmented Neutrophils % 74.9 %
[2017-08-04 07:33] LABS: BUN/Creatinine Ratio 25 (6-26); Blood Urea Nitrogen 16 mg/dL (8-23); Calcium 9.1 mg/dL (8.6-10.3); Carbon Dioxide 31 mEq/L (23-29); Chloride 93 mEq/L (98-107); Glucose 151 mg/dL (70-105); Osmolality,Calculated 276 (280-300); Potassium 4.5 mEq/L (3.5-5.1); Sodium 131 mEq/L (136-145); eGFR For African Americans > 60 (> 60); eGFR For Non-African Americans > 60 (> 60)
[2017-08-04] MEDS: Insulin LISPRO 300 UNITS/3 ML VIAL SQ SCH ×3 (07:48→16:29)
[2017-08-04] MEDS: *HR* Metformin 500 MG TABLET PO SCH ×2 (08:01→17:08)
[2017-08-04] MEDS: Metoprolol XL (24 HR) Succ 25 MG TAB.ER.24H PO SCH (08:01)
[2017-08-04 09:02] LABS: Bilirubin,Urine Negative (Negative); Blood,Urine Negative (Negative); Clarity,Urine Clear (Clear); Color,Urine Yellow (Yellow); Glucose,Urine (UA) Normal (Normal); Ketones,Urine Negative (Negative); Leukocyte Esterase,Urine Negative (Negative); Nitrite,Urine Negative (Negative); Protein,Urine Negative (Neg-Trace); Specific Gravity,Urine 1.015 (1.010-1.025); Urobilinogen,Urine Normal (Normal)
[2017-08-04] MEDS: *HR* Rivaroxaban 15 MG TABLET PO SCH (17:08)
[2017-08-05] MEDS: Metoprolol XL (24 HR) Succ 25 MG TAB.ER.24H PO SCH (09:35)
[2017-08-05] MEDS: Insulin LISPRO 300 UNITS/3 ML VIAL SQ SCH ×3 (09:35→16:53)
[2017-08-05] MEDS: *HR* Metformin 500 MG TABLET PO SCH ×2 (09:35→16:57)
[2017-08-05] MEDS: Aspirin 81 MG TAB.CHEW PO SCH (09:35)
[2017-08-05] MEDS: *HR* Rivaroxaban 15 MG TABLET PO SCH (16:56)
[2017-08-06] MEDS: *HR* Metformin 500 MG TABLET PO SCH ×2 (08:31→16:55)
[2017-08-06] MEDS: Metoprolol XL (24 HR) Succ 25 MG TAB.ER.24H PO SCH (08:31)
[2017-08-06] MEDS: Insulin LISPRO 300 UNITS/3 ML VIAL SQ SCH ×3 (08:31→16:43)
[2017-08-06] MEDS: *HR* OxyCODONE Immed Rel 5 MG TABLET PO PRN (09:16)
[2017-08-06] MEDS: *HR* Rivaroxaban 15 MG TABLET PO SCH (16:55)
--- NOTE | 2017-08-06 17:42 | Internal Med Progress Note ---
Date of Encounter: 08/06/17 Time of Encounter: 17:35 - Assessment and plan (1) Hip fracture, intertrochanteric Current Visit: No Status: Acute Assessment and plan: July 31. Continue therapy intervention and Xarelto. August 06. Continue therapy and Xarelto. I discussed with her that her family does not feel they can continue caring for her in the home and that it is likely she will be transitioned to LTC for ongoing care. Qualifiers: Encounter type: initial encounter Fracture type: closed Fracture alignment: displaced Laterality: right Qualified Code(s): S72.141A - Displaced intertrochanteric fracture of right femur, initial encounter for closed fracture (2) Postoperative anemia due to acute blood loss Current Visit: No Status: Acute Assessment and plan: July 31. We will monitor CBC. August 03. We will recheck CBC in a.m. August 06. Hemoglobin improved to 10.0 on 08/04/2017. Continue to monitor. (3) Hypertension Current Visit: Yes Status: Chronic Assessment and plan: July 31. Continue Toprol August 03. Blood pressure satisfactory. Continue Toprol Qualifiers: Hypertension type: essential hypertension Qualified Code(s): I10 - Essential (primary) hypertension (4) Atrial fibrillation Current Visit: No Status: Chronic Assessment and plan: July 31. Continue Xarelto Qualifiers: Atrial fibrillation type: paroxysmal Qualified Code(s): I48.0 - Paroxysmal atrial fibrillation - Subjective Interval history: July 31. She has no new complaints. She is having ongoing pain even at rest in her right hip. She denies constipation. August 03. She has no new complaints and feels well. August 06. She has no new complaints. - Constitutional Vitals: Temp Pulse Resp BP Pulse Ox 97.5 F L 77 16 102/61 95 08/06/17 08:08 08/06/17 08:08 08/06/17 08:08 08/06/17 08:08 08/06/17 08:08 Exam: She is sitting in a chair at bedside and appears comfortable. Her left leg shows 0 -trace edema of the anterior durbin. The right leg shows 1+ edema of the durbin. Her affect is overall cheerful. I reviewed her medications and lab results. Internal Medicine: Result - Labs CBC & Chem 7: 08/04/17 06:48 08/04/17 06:48 - ABG Interpretation ABG results: PT/INR, D-dimer PT 22.3 Seconds (9.4-12.1) H D 07/30/17 04:14 Consult Discharge Plan - Plan Referrals: NONE,PCP [Primary Care Provider] - 1 week Amarjit Brock, FOOD ASSEMBLER [employer] [Family Provider] - 1 week
[2017-08-07] MEDS: *HR* Metformin 500 MG TABLET PO SCH ×2 (07:25→17:43)
[2017-08-07] MEDS: Insulin LISPRO 300 UNITS/3 ML VIAL SQ SCH ×3 (07:27→16:37)
[2017-08-07] MEDS: Aspirin 81 MG TAB.CHEW PO SCH (08:40)
[2017-08-07] MEDS: Metoprolol XL (24 HR) Succ 25 MG TAB.ER.24H PO SCH (08:40)
[2017-08-07] MEDS: *HR* Rivaroxaban 15 MG TABLET PO SCH (17:43)
[2017-08-08] MEDS: *HR* OxyCODONE Immed Rel 5 MG TABLET PO PRN (02:00)
[2017-08-08] MEDS: *HR* Metformin 500 MG TABLET PO SCH (07:38)
[2017-08-08] MEDS: Insulin LISPRO 300 UNITS/3 ML VIAL SQ SCH ×2 (07:39→11:19)
[2017-08-08] MEDS: Metoprolol XL (24 HR) Succ 25 MG TAB.ER.24H PO SCH (10:22)
--- NOTE | 2017-08-08 13:44 | Discharge Summary ---
Date of Encounter: 08/08/17 Time of Encounter: 11:20 - Discharge Diagnosis (1) Hip fracture, intertrochanteric Priority: Primary Status: Acute Qualifiers: Encounter type: initial encounter Fracture type: closed Fracture alignment: displaced Laterality: right Qualified Code(s): S72.141A - Displaced intertrochanteric fracture of right femur, initial encounter for closed fracture (2) Postoperative anemia due to acute blood loss Priority: Secondary Status: Acute (3) Hypertension Priority: Secondary Status: Chronic Qualifiers: Hypertension type: essential hypertension Qualified Code(s): I10 - Essential (primary) hypertension (4) Atrial fibrillation Priority: Secondary Status: Chronic Qualifiers: Atrial fibrillation type: paroxysmal Qualified Code(s): I48.0 - Paroxysmal atrial fibrillation Hospital course: Ms. Fleming is a 72 year old female who was hospitalized at [facility] July 24 after a fall at home resulting in right intertrochanteric fracture. She underwent intramedullary nail fixation repair. Her postoperative course was unremarkable and she was admitted [facility] swing bed for ongoing care needs. Initial orders were written by the discharging physicians at [facility]. I saw her on July 30 and performed a swing bed history and physical. She had physical therapy and occupational therapy evaluation with ongoing intervention. She was maintained on Xarelto for DVT prophylaxis. She made satisfactory progress however it was agreed by patient, family, and caregivers she needed ongoing therapy and she chose to go to [facility] for therapy care needs. - Time Spent with Patient Total time spent providing and/or coordinating discharge services: - Discharge Medications Home Medications: Aspirin 81 mg PO Q48H 365 Days tab.chew 07/17/17 [Rx] Metoprolol XL (24 HR) Succ [Toprol Xl] 25 mg PO DAILY #30 tab.er.24h 07/17/17 [ Rx] metFORMIN [Glucophage] 500 mg PO BIDWM #60 tablet 07/17/17 [Rx] Insulin LISPRO [HumaLOG] 0 units SQ TIDAC PRN 07/24/17 [History] OxyCODONE Immed Rel [Roxicodone 5 MG] 5 mg PO Q6HR PRN 3 Days #12 tablet [Rx] Rivaroxaban [Xarelto] 15 mg PO QPM tablet 07/29/17 [Rx] Allergies/Adverse Reactions: 3 Allergy/AdvReac Type Severity Reaction Status Date / Time No Known Allergies Allergy Verified 07/07/17 05:00 Date of admission: 07/29/17 17:25 Primary care physician: PCP NONE Consults: 07/29/17 17:35 Consult to Occupational Therapy [CONS] Routine Comment: Eval, Develop, and Implement P.O.C. Reason for Consult: s/p R hip fx w/ nailing Does patient have active BEDREST order?: No Is patient medically & hemodynamically stable?: Yes Consult to Physical Therapy [CONS] Routine Comment: Eval, Develop, and Implement P.O.C. Reason for Consult: s/p R hip fx w/ nailing Does patient have active BEDREST order?: No Is patient medically & hemodynamically stable?: Yes Consult to Allied Health Teacher [CONS] Routine Reason for SW Consult: D/C planning - Constitutional Vitals: Temp Pulse Resp BP Pulse Ox 97.8 F 78 20 126/70 96 08/08/17 11:15 08/08/17 11:15 08/08/17 11:15 08/08/17 11:15 08/08/17 11:15 - Patient Status Disposition: Transfer SNF Overall status at discharge: patient is progressing back to baseline - Discharge Instructions - Diet and Activity Activity: as per physical therapy Diet: diabetic diet
--- NOTE | 2017-08-08 13:47 | Physician Discharge Referral ---
ExtendedCare Referral Info Transfer To: [place] Provider in Charge: Mau Provider in Charge after Transfer: PCP - Diagnosis (1) Hip fracture, intertrochanteric Priority: Primary Status: Acute (2) Postoperative anemia due to acute blood loss Priority: Secondary Status: Acute (3) Hypertension Priority: Secondary Status: Chronic (4) Atrial fibrillation Priority: Secondary Status: Chronic Prognosis: Good Aware of Diagnosis: Patient, Family Aware of Prognosis: Patient, Family - Transfer Medications Home Medications: Aspirin 81 mg PO Q48H 365 Days tab.chew 07/17/17 [Rx] Metoprolol XL (24 HR) Succ [Toprol Xl] 25 mg PO DAILY #30 tab.er.24h 07/17/17 [ Rx] metFORMIN [Glucophage] 500 mg PO BIDWM #60 tablet 07/17/17 [Rx] Insulin LISPRO [HumaLOG] 0 units SQ TIDAC PRN 07/24/17 [History] OxyCODONE Immed Rel [Roxicodone 5 MG] 5 mg PO Q6HR PRN 3 Days #12 tablet [Rx] Rivaroxaban [Xarelto] 15 mg PO QPM tablet 07/29/17 [Rx] Allergies/Adverse Reactions: 3 Allergy/AdvReac Type Severity Reaction Status Date / Time No Known Allergies Allergy Verified 07/07/17 05:00 - Respiratory Orders Smoking Cessation: Smoking cessation has been advised. For more information, call the [place] Tobacco Quit Line at 4-904-BQPV-NOW. - Lab Orders Lab Orders: Other (include drug levels w/frequency) (CBC with differential, BMP in 3 days) - Mobility Orders Ambulate - Rehabiliation Orders Rehab Potential: Good Rehab Orders: Evaluation for Physical Therapy, Evaluation for Occupational Therapy - Diet Orders No Concentrated Sweets CERTIFICATION: I certify that the transfer of the above named patient to an Extended Care Facility is necessary for the continuing treatment of the diagnosis listed. The above information is true and accurate reflection of patient's current condition. Confidential - Redisclosure prohibited without a patient's written consent.
[2017-08-08 14:55] VITALS: BP 133/76
== END 2017-08-08 15:30 | DRG 560 ==
LOC: INPPIK 17:25
PROVIDERS: ADMIT Internal Medicine; ATTEND Internal Medicine

== ENCOUNTER 2018-01-29 09:48 | Observation (INO) ==
[2018-01-29] MEDS ORDERED: Ondansetron 4 MG/2 ML VIAL IVP ONE (10:28)
[2018-01-29] MEDS ORDERED: 0.9 % Sodium Chloride 1,000 ML IVC ONE (10:28)
[2018-01-29] MEDS ORDERED: Pantoprazole 40 MG VIAL IVP ONE (10:28)
--- NOTE | 2018-01-29 10:32 | Emergency Department Note ---
Disposition Clinical Impression: Nausea and vomiting Urinary tract infection Qualifiers: Urinary tract infection type: site unspecified Hematuria presence: with hematuria Qualified Code(s): N39.0 - Urinary tract infection, site not specified Disposition: Admitted As Inpatient Condition: Fair Referrals: Amarjit Brock, SELF DEFENSE INSTRUCTOR [Primary Care Provider] - Forms: ED Satisfaction Letter Time of Disposition: 12:20 Nausea/Vomiting/Diarrhea HPI - General Chief complaint: ED Nausea/Vomiting/Diarrhea Stated complaint: vomiting x 3 weeks, recent dx uti Time Seen by Provider: 01/29/18 10:09 Source: patient, family, EMS Mode of arrival: EMS Limitations: age Nursing Notes Reviewed: Yes Vital Signs Reviewed: Yes - History of Present Illness Pt Subjective Complaint: nausea, vomiting, abdominal pain Onset (ago): week(s) (She has had nausea and vomiting twice a day for the past 3 weeks but yesterday she vomited 5 times. She has developed upper abdominal pain over the past week or so as well.) Associated Abdominal Pain: Yes If pain, Location of pain: LUQ, RUQ, epigastric Severity: moderate Quality: aching Consistency: intermittent Improves with: nothing Worsens with: eating Context: other (Symptoms developed about 3 weeks ago shortly after the of family member. They thought initially it was just stress. But it persisted so they have been evaluated here recently. She was seen in this emergency department on January 25. Lab workup and CAT scan and urinalysis were negative at that time. She had a follow-up appointment with her doctor yesterday who put her on Cipro for presumed urinary tract infection. I do not see evidence of UA or urine culture in the chart from either visit. Today she took the Cipro and threw it up.) Associated symptoms: Denies: chest pain, diaphoresis, fever/chills, rash, dysuria - Related Data Home Medications Medication Instructions Recorded Confirmed Aspirin 81 mg PO DAILY 01/25/18 01/29/18 Rivaroxaban [Xarelto] 20 mg PO QPM 01/25/18 01/29/18 Ciprofloxacin HCl [Cipro] 500 mg PO BID 01/29/18 01/29/18 Previous Rx's Medication Instructions Recorded metFORMIN [Glucophage] 500 mg PO BIDWM #60 tablet 07/17/17 OxyCODONE Immed Rel [Roxicodone 5 5 mg PO Q6HR PRN 3 Days #12 tablet 07/29/17 MG] Famotidine [Pepcid] 20 mg PO DAILY #15 tablet 01/25/18 Meclizine HCl [Verticalm] 25 mg PO TID #12 tablet 01/25/18 Ondansetron ODT [Zofran ODT] 4 mg SL Q6HR PRN #20 tab.rapdis 01/25/18 Allergies Allergy/AdvReac Type Severity Reaction Status Date / Time No Known Allergies Allergy Verified 01/29/18 09:50 All systems ED: reviewed and negative except as stated. Constitutional: Denies: fever, chills ENT ED: Denies: ear pain, throat pain, congestion Cardiovascular: Denies: chest pain, palpitations Respiratory: Denies: dyspnea Gastrointestinal: Reports: abdominal pain, nausea, vomiting Genitourinary: Denies: urgency, dysuria, frequency Integumentary: Denies: rash Neurological: Denies: headache Past Medical History - Past Medical History Attestation: Yes The following information was validated with the patient. Source: patient, old records reviewed, obtained from family, nursing notes reviewed Medical history: Reports: atrial fibrillation, CVA, diabetes, hypertension Surgical history: Reports: cholecystectomy Psychiatric history: Reports: no psych history - Social History Smoking Status: Never smoker Smokeless Tobacco Status: No Alcohol use: Reports: none Drug use: Reports: none Physical Exam - General Limitations: age General appearance: alert, in no apparent distress - Head Head exam: atraumatic, normocephalic, normal inspection - Eye Eye exam: Present: normal appearance, PERRL, EOMI. Absent: scleral icterus, conjunctival injection - ENT ENT exam: normal exam, normal oropharynx, mucous membranes moist, TM's normal bilaterally, normal external ear exam - Neck Neck exam: Present: normal inspection, full ROM - Chest Chest inspection: Present: normal inspection, symmetric chest wall rise. Absent : tenderness - Respiratory Respiratory exam: Present: normal lung sounds bilaterally. Absent: respiratory distress, wheezes - Cardiovascular Cardiovascular exam: Present: regular rate, normal rhythm, normal heart sounds - Abdominal Exam Abdominal exam: Present: soft, tenderness, normal bowel sounds. Absent: distention Abdominal tenderness: Present: RUQ, LUQ, epigastrium, mild - Extremities Exam Extremities exam: Present: normal inspection. Absent: pedal edema - Neurological Exam Neurological exam: Present: alert, oriented X3. Absent: motor sensory deficit - Psychiatric Psychiatric exam: Present: normal affect, normal mood - Skin Skin exam: Present: warm, dry. Absent: rash Course Course Narrative: Patient presents with 3 weeks of nausea and vomiting. The pattern is pretty much been the same for the past 3 weeks although yesterday she vomited a couple more times than she had over the past couple weeks. She started been worked up for this problem couple of days ago but since the vomiting increased they came back for reevaluation. On physical exam she has tenderness across the upper abdomen. I do not know if that is related to the vomiting or if there is any intra-abdominal process like pancreatitis going on. This could be emotional as it came on after the of a family member. Could be gastritis related. I am giving the patient some IV fluids and Zofran and Protonix. I will repeat labs and recheck the urine to see if she really needs to be on that antibiotic. I do not see clinical indication for repeat CAT scan of the abdomen. I will do a chest x-ray. Disposition will be based on diagnostic results and reevaluation. - Reevaluation(s) Reevaluation #1: Labs look good. X-ray looks fine. Urinalysis came back definitely indicative of urinary tract infection. Symptoms have been going on for some time now and despite being given antibiotics she is not able to keep them down to she is vomiting. Thus I think is best to admit her to the hospital for IV antibiotics until we are sure she can keep by mouth antibiotics down. I will talk to the hospitalist. Time: 12:18 - Consultations Consultation #1: Dr. León, hospitalist - I discussed the case with the hospitalist. He is accepted patient for admission for IV antibiotics and vomiting control. Time: 12:22 Vital Signs Temperature 98.4 F 01/29/18 09:53 Pulse Rate 83 01/29/18 09:53 Respiratory Rate 18 01/29/18 09:53 Blood Pressure 150/80 01/29/18 09:53 O2 Sat by Pulse Oximetry 94 01/29/18 09:53 Temperature 98.4 F 01/29/18 09:53 Pulse Rate 83 01/29/18 11:58 Respiratory Rate 18 01/29/18 11:58 Blood Pressure 153/79 01/29/18 11:58 O2 Sat by Pulse Oximetry 98 01/29/18 11:58 Oxygen Delivery Oxygen Delivery Room Air Nausea/Vomiting/Diarrhea - Medical Records Medical records reviewed: Yes I reviewed the patient's medical records. - Lab Data Lab results reviewed: Yes I reviewed the patient's lab results. Result diagrams: 01/29/18 10:55 01/29/18 10:55 Lab Results 01/29/18 01/29/18 01/29/18 Range/Units 10:55 10:55 10:55 WBC 12.4 H (4.3-11.1) K/mcL RBC 4.15 (3.82-4.97) M/mcL Hgb 12.2 (11.5-15.4) g/dL Hct 36.3 (35.3-44.9) % MCV 87.5 (83.0-100.0) fL MCH 29.4 (28.0-33.3) pg MCHC 33.6 (31.6-35.5) g/dL RDW 14.0 (11.5-14.5) % Plt Count 320 (140-400) K/mcL MPV 10.0 (9.4-12.4) fL Immature Gran % 0.4 (0-4) % Seg Neutrophils % 80.9 % Lymphocytes % 14.0 % Monocytes % 4.0 % Eosinophils % 0.2 % Basophils % 0.5 % Neutrophils # 10.0 H (1.6-8.9) K/mcL Lymphocytes # 1.7 (0.6-4.6) K/mcL Monocytes # 0.5 (0.0-1.3) K/mcL Eosinophils # 0.0 (0.0-0.6) K/mcL Basophils # 0.1 (0.0-0.2) K/mcL Sodium 134 L (136-145) mEq/L Potassium 3.4 L (3.5-5.1) mEq/L Chloride 93 L (98-107) mEq/L Carbon Dioxide 31 H (23-29) mEq/L BUN 17 (8-23) mg/dL Creatinine 0.82 (0.60-1.20) mg/dL Est GFR ( Amer) > 60 (> 60) Est GFR (Non-Af Amer) > 60 (> 60) BUN/Creatinine Ratio 21 (6-26) Glucose 153 H (70-105) mg/dL Calculated Osmolality 283 (280-300) Calcium 9.8 (8.6-10.3) mg/dL Total Bilirubin 0.7 (0.3-1.0) mg/dL Direct Bilirubin 0.1 (0.0-0.2) mg/dL Indirect Bilirubin 0.6 (0.0-1.2) mg/dL AST 15 (13-39) Units/L ALT 9 (7-52) Units/L Alkaline Phosphatase 50 (34-104) Units/L Troponin I < 0.03 (< 0.04) ng/mL Serum Total Protein 7.7 (6.4-8.9) g/dL Albumin 4.4 (3.5-5.7) g/dL Globulin 3.3 (2.4-3.5) g/dL Albumin/Globulin Ratio 1.3 (1.1-2.2) Lipase 16 (11-82) Units/L Urine Color (Yellow) Urine Clarity (Clear) Urine pH (5.0-8.0) pH Units Ur Specific [place] (1.010-1.025) Urine Protein (Neg-Trace) mg/dL Urine Glucose (UA) (Normal) mg/dL Urine Ketones (Negative) mg/dL Urine Blood (Negative) Urine Nitrite (Negative) Urine Bilirubin (Negative) Urine Urobilinogen (Normal) mg/dL Ur Leukocyte Esterase (Negative) Urine Microscopic RBC (0-3) per hpf Urine Microscopic WBC (0-3) per hpf Ur Squamous Epith Cells (None-Few) per lpf Urine Bacteria (None-Few) per hpf Ur Culture Indicated? (NO) 01/29/18 Range/Units 11:16 WBC (4.3-11.1) K/mcL RBC (3.82-4.97) M/mcL Hgb (11.5-15.4) g/dL Hct (35.3-44.9) % MCV (83.0-100.0) fL MCH (28.0-33.3) pg MCHC (31.6-35.5) g/dL RDW (11.5-14.5) % Plt Count (140-400) K/mcL MPV (9.4-12.4) fL Immature Gran % (0-4) % Seg Neutrophils % % Lymphocytes % % Monocytes % % Eosinophils % % Basophils % % Neutrophils # (1.6-8.9) K/mcL Lymphocytes # (0.6-4.6) K/mcL Monocytes # (0.0-1.3) K/mcL Eosinophils # (0.0-0.6) K/mcL Basophils # (0.0-0.2) K/mcL Sodium (136-145) mEq/L Potassium (3.5-5.1) mEq/L Chloride (98-107) mEq/L Carbon Dioxide (23-29) mEq/L BUN (8-23) mg/dL Creatinine (0.60-1.20) mg/dL Est GFR ( Amer) (> 60) Est GFR (Non-Af Amer) (> 60) BUN/Creatinine Ratio (6-26) Glucose (70-105) mg/dL Calculated Osmolality (280-300) Calcium (8.6-10.3) mg/dL Total Bilirubin (0.3-1.0) mg/dL Direct Bilirubin (0.0-0.2) mg/dL Indirect Bilirubin (0.0-1.2) mg/dL AST (13-39) Units/L ALT (7-52) Units/L Alkaline Phosphatase (34-104) Units/L Troponin I (< 0.04) ng/mL Serum Total Protein (6.4-8.9) g/dL Albumin (3.5-5.7) g/dL Globulin (2.4-3.5) g/dL Albumin/Globulin Ratio (1.1-2.2) Lipase (11-82) Units/L Urine Color Yellow (Yellow) Urine Clarity Cloudy A (Clear) Urine pH 7.0 (5.0-8.0) pH Units Ur Specific [place] >= 1.030 H (1.010-1.025) Urine Protein 100 H (Neg-Trace) mg/dL Urine Glucose (UA) Normal (Normal) mg/dL Urine Ketones 15 H (Negative) mg/dL Urine Blood Trace-intact H (Negative) Urine Nitrite Positive A (Negative) Urine Bilirubin Small H (Negative) Urine Urobilinogen Normal (Normal) mg/dL Ur Leukocyte Esterase Small H (Negative) Urine Microscopic RBC 3-5 H (0-3) per hpf Urine Microscopic WBC 30-50 H (0-3) per hpf Ur Squamous Epith Cells Few (None-Few) per lpf Urine Bacteria Many H (None-Few) per hpf Ur Culture Indicated? YES A (NO) - Radiology Data Radiology results reviewed: Yes I reviewed the patient's radiology results.
[2018-01-29 11:04] LABS: Basophils # 0.1 K/mcL (0.0-0.2); Basophils % 0.5 %; Eosinophils % 0.2 %; Hematocrit 36.3 % (35.3-44.9); Hemoglobin 12.2 g/dL (11.5-15.4); Immature Granulocytes % 0.4 % (0-4); Lymphocytes # 1.7 K/mcL (0.6-4.6); Mean Corpuscular HGB Conc 33.6 g/dL (31.6-35.5); Mean Corpuscular Hemoglobin 29.4 pg (28.0-33.3); Mean Corpuscular Volume 87.5 fL (83.0-100.0); Monocytes # 0.5 K/mcL (0.0-1.3); Platelet Count 320 K/mcL (140-400); Red Blood Count 4.15 M/mcL (3.82-4.97); Segmented Neutrophils % 80.9 %
[2018-01-29 11:17] LABS: BUN/Creatinine Ratio 21 (6-26); Blood Urea Nitrogen 17 mg/dL (8-23); Calcium 9.8 mg/dL (8.6-10.3); Carbon Dioxide 31 mEq/L (23-29); Chloride 93 mEq/L (98-107); Glucose 153 mg/dL (70-105); Lipase 16 Units/L (11-82); Osmolality,Calculated 283 (280-300); Potassium 3.4 mEq/L (3.5-5.1); Sodium 134 mEq/L (136-145); eGFR For Non-African Americans > 60 (> 60)
[2018-01-29 11:18] LABS: Alanine Aminotransferase 9 Units/L (7-52); Albumin 4.4 g/dL (3.5-5.7); Albumin/Globulin Ratio 1.3 (1.1-2.2); Alkaline Phosphatase 50 Units/L (34-104); Aspartate Amino Transferase 15 Units/L (13-39); Bilirubin,Direct 0.1 mg/dL (0.0-0.2); Bilirubin,Indirect 0.6 mg/dL (0.0-1.2); Bilirubin,Total 0.7 mg/dL (0.3-1.0); Globulin 3.3 g/dL (2.4-3.5); Total Protein 7.7 g/dL (6.4-8.9)
[2018-01-29 11:21] LABS: Troponin I < 0.03 ng/mL (< 0.04)
[2018-01-29 11:31] LABS: Bilirubin,Urine Small (Negative); Blood,Urine Trace-intact (Negative); Color,Urine Yellow (Yellow); Glucose,Urine (UA) Normal (Normal); Ketones,Urine 15 mg/dL (Negative); Leukocyte Esterase,Urine Small (Negative); Nitrite,Urine Positive (Negative); Protein,Urine 100 mg/dL (Neg-Trace); Specific Gravity,Urine >= 1.030 (1.010-1.025); Urobilinogen,Urine Normal (Normal)
[2018-01-29 11:35] LABS: Clarity,Urine Cloudy (Clear)
[2018-01-29 11:41] LABS: Bacteria,Urine Many per hpf (None-Few); Squamous Epithelial Cell,Urine Few per lpf (None-Few); WBC,Urine 30-50 per hpf (0-3)
[2018-01-29] MEDS ORDERED: Ondansetron ODT 4 MG TAB.RAPDIS SL PRN (13:24)
[2018-01-29] MEDS ORDERED: Naloxone 0.4 MG/ML INJ IVP PRN (13:24)
[2018-01-29] MEDS ORDERED: 0.9 % Sodium Chloride 1,000 ML IVC SCH (13:24)
[2018-01-29] MEDS ORDERED: *HR* OxyCODONE Immed Rel 5 MG TABLET PO PRN (13:24)
[2018-01-29] MEDS ORDERED: *HR* Metformin 500 MG TABLET PO SCH (17:00)
[2018-01-29] MEDS: *HR* Rivaroxaban 15 MG TABLET PO SCH (17:21)
--- NOTE | 2018-01-29 17:27 | Internal Med History&Physical ---
Date of Encounter: 01/29/18 Time of Encounter: 17:00 Assessment and Plan (1) Nausea and vomiting Current visit: Yes Status: Acute IV fluids and anti-emetics have been ordered. Qualifiers: Vomiting type: unspecified Vomiting Intractability: non-intractable Qualified Code(s): R11.2 - Nausea with vomiting, unspecified (2) Hyponatremia Current visit: No Status: Acute Probably secondary to vomiting. IV fluids have been ordered. Labs will be rechecked in a.m. (3) Hypokalemia Current visit: No Status: Acute Probably secondary to vomiting. Supplement potassium has been ordered and labs will be rechecked in a.m. (4) DM2 (diabetes mellitus, type 2) Current visit: No Status: Chronic Check hemoglobin A1c in a.m. 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 TSH was normal at 0.755 on 07/07/2017. CT scans of chest abdomen and pelvis have been unremarkable to date. (6) CVA (cerebral vascular accident) Current visit: No Status: Acute Continue aspirin and Xarelto. Qualifiers: CVA mechanism: unspecified Qualified Code(s): I63.9 - Cerebral infarction, unspecified (7) Hypertension Current visit: No Status: Chronic Home medication list does not include antihypertensive medication. Will monitor blood pressure and treat as needed. Qualifiers: Hypertension type: essential hypertension Qualified Code(s): I10 - Essential (primary) hypertension (8) Urinary retention Current visit: No Status: Acute Remove Alvarez catheter and see if spontaneous voiding occurs. (9) Atrial fibrillation Current visit: No Status: Chronic Continue Xarelto. Qualifiers: Atrial fibrillation type: paroxysmal Qualified Code(s): I48.0 - Paroxysmal atrial fibrillation Internal Medicine - H&P: HPI Chief complaint: Vomiting and diarrhea Admitted From: Emergency Dept Plans for Post Hospital Care: Home History of present illness: Ms. Fleming is a 73 year old female who came to emergency room stating she had vomiting and diarrhea onset approximately 3 weeks ago. She reports 2-5 episodes of vomiting daily without visible hematemesis. She reports diarrhea has occurred 3-4 times per week without visible melena or hematochezia. She denies significant abdominal pain. She has felt chills without significant fever for approximately 2 days. She was evaluated in emergency room and found to have leukocytosis with left shift and hypokalemia. She was admitted to [facility] for ongoing care needs. She was seen in emergency room 01/25/2018 for vomiting and vertigo and was given Zofran and Pepcid. She was found to have urinary retention on abdominal/ pelvic CT and a Alvarez catheter was inserted and remains. She denies family members or other contacts with similar GI complaints. She has had cholecystectomy but denies disorders of her liver or exocrine pancreas. Past Med Surg Social Fam HX - Past Medical History Medical history: atrial fibrillation, CVA, diabetes, hypertension Additional medical history: patient is a poor historian Psychiatric history: no psych history - Past Surgical History Surgical History: cholecystectomy Additional surgical history: hip surgery - Social History Smoking Status: Never smoker Smokeless Tobacco Status: No Alcohol use: none Drug use: none - Family History Daughter Hx Family Endocrine Disorder: Yes Son Hx Family Endocrine Disorder: Yes Internal Medicine - H&P: Meds metFORMIN [Glucophage] 500 mg PO BIDWM #60 tablet 07/17/17 [Rx] OxyCODONE Immed Rel [Roxicodone 5 MG] 5 mg PO Q6HR PRN 3 Days #12 tablet [Rx] Aspirin 81 mg PO DAILY 01/25/18 [History] Famotidine [Pepcid] 20 mg PO DAILY #15 tablet 01/25/18 [Rx] Meclizine HCl [Verticalm] 25 mg PO TID #12 tablet 01/25/18 [Rx] Ondansetron ODT [Zofran ODT] 4 mg SL Q6HR PRN #20 tab.rapdis 01/25/18 [Rx] Rivaroxaban [Xarelto] 20 mg PO QPM 01/25/18 [History] Ciprofloxacin HCl [Cipro] 500 mg PO BID 01/29/18 [History] 3 Allergy/AdvReac Type Severity Reaction Status Date / Time No Known Allergies Allergy Verified 01/29/18 09:50 All Systems PM: A 10-system review of systems was performed and is negative for pertinent findings except as documented above in the HPI. Review of systems: Review of systems from her July 2017 [facility] hospitalization were reviewed and revised as below. Gen.: Her daughter estimated she had lost approximately 30 pounds in the past 2 years, unintentionally at the July 2017 H&P. Her weight has decreased from 68.946 kg at that hospitalization to 64.864 kg now. TSH and CT of chest, abdomen, and pelvis done during July 2017 [facility] stay did not show obvious etiology for weight loss. Abdominal/pelvis CT scan 01/25/2018 showed no worrisome pathology for malignancy. Cardiovascular: She has history of hypertension but denies PR heart failure angina DVT or pulmonary embolus. She has paroxysmal AF and is on Xarelto. Respiratory: She smoked approximately age [age] never up to 1 pack per day. She denies chronic lung disease and does not use home oxygen GI: She had remote cholecystectomy. She denies disorders of her liver or exocrine pancreas. : She denies hematuria dysuria or kidney stones Neurologic: She had a stroke approximately 20 years ago leaving her with right hemiparesis. She is able to walk with a walker. Endocrine: She was diagnosed with DM 2 approximately 15 years ago. She stopped seeing her PCP approximately 15 years ago when she was informed that metformin was no longer adequately controlling her diabetes and she would need to start insulin shots. Since her July 2017 [facility] hospitalization she has been following with a PCP. She denies known thyroid disease. She does not have hyperlipidemia Hematology/oncology: She denies blood disorders or cancers. She anemia postoperative hip fracture repair which has now resolved. Psychiatric: She denies anxiety depression or other mental health issues [place] skeletal: She had right hip fracture repair with IM nail fixation repair July 2017. She has DJD but denies gout or other bone joint or muscle disorders. - Constitutional Vitals: Temp Pulse Resp BP Pulse Ox 98.4 F 84 16 162/89 95 01/29/18 14:02 01/29/18 14:02 01/29/18 14:02 01/29/18 14:02 01/29/18 14:02 Exam: Gen.: She is a well-developed well nourished female resting comfortably in bed who appears in no acute distress at present time. HEENT: Head is atraumatic and normocephalic. Eyes: EOMI. There is no scleral icterus. Mouth: Mucosa is moist. Neck: Supple and nontender. There is no thyromegaly or adenopathy noted. Heart: Regular without murmurs gallops or ectopics Lungs: No wheezes or crackles are heard. Abdomen: Soft and nontender. No masses or guarding are noted. Extremities: There is no cyanosis edema or clubbing noted. Dorsalis pedis and posttibial pulses are trace palpable bilaterally. Neurologic: Mental status: She is talkative and a fair to good historian. She does not remember some details of her history. Cranial nerves: Smile is symmetric. Forehead wrinkles bilaterally. Tongue protrudes midline. EOMI. Motor: There is no pronator drift. Cerebellar: Finger to nose is intact bilaterally. Skin: Warm and dry Internal Med - H&P Results - Labs CBC & Chem 7: 01/29/18 10:55 01/29/18 10:55 - VTE Documentation of Mechanical Device: Graduated compression elastic hosiery
[2018-01-29] MEDS: Lactobacillus 1 EACH CAP.SPRINK PO SCH (21:04)
[2018-01-29] MEDS: 0.9 % Sodium Chloride w KCl 20 MEQ/1,000 ML MLS IVC SCH (21:06)
[2018-01-30 05:58] LABS: Basophils # 0.1 K/mcL (0.0-0.2); Basophils % 0.5 %; Eosinophils # 0.2 K/mcL (0.0-0.6); Eosinophils % 1.8 %; Hematocrit 30.7 % (35.3-44.9); Hemoglobin 10.4 g/dL (11.5-15.4); Immature Granulocytes % 0.2 % (0-4); Lymphocytes # 2.6 K/mcL (0.6-4.6); Lymphocytes % 26.8 %; Mean Corpuscular HGB Conc 33.9 g/dL (31.6-35.5); Mean Corpuscular Hemoglobin 29.5 pg (28.0-33.3); Mean Platelet Volume 10.1 fL (9.4-12.4); Monocytes # 0.8 K/mcL (0.0-1.3); Monocytes % 7.9 %; Platelet Count 315 K/mcL (140-400); Red Blood Count 3.53 M/mcL (3.82-4.97); Red Cell Distribution Width 13.9 % (11.5-14.5); Segmented Neutrophils % 62.8 %
[2018-01-30 06:16] LABS: BUN/Creatinine Ratio 15 (6-26); Blood Urea Nitrogen 9 mg/dL (8-23); Calcium 8.6 mg/dL (8.6-10.3); Carbon Dioxide 28 mEq/L (23-29); Chloride 99 mEq/L (98-107); Glucose 116 mg/dL (70-105); Osmolality,Calculated 280 (280-300); Potassium 3.1 mEq/L (3.5-5.1); Sodium 135 mEq/L (136-145); eGFR For Non-African Americans > 60 (> 60)
[2018-01-30] MEDS: 0.9 % Sodium Chloride w KCl 20 MEQ/1,000 ML MLS IVC SCH ×2 (06:48→21:46)
[2018-01-30] MEDS ORDERED: Aspirin 81 MG TAB.CHEW PO SCH (09:00)
[2018-01-30] MEDS ORDERED: Famotidine 20 MG TABLET PO SCH (09:00)
[2018-01-30] MEDS ORDERED: cefTRIAXone 1,000 MG in 0.9 % Sodium Chloride Mini Bag 100 ML IVPB SCH (09:00)
[2018-01-30 09:35] LABS: Estimated Average Glucose 134 mg/dl; Hemoglobin A1C 6.3 %
[2018-01-30] MEDS: Lactobacillus 1 EACH CAP.SPRINK PO SCH ×2 (09:53→21:45)
[2018-01-30] MEDS: Magnesium Oxide 400 MG TABLET PO SCH ×2 (11:24→21:45)
[2018-01-30] MEDS: *HR* Rivaroxaban 15 MG TABLET PO SCH (17:13)
[2018-01-31] MEDS: 0.9 % Sodium Chloride w KCl 20 MEQ/1,000 ML MLS IVC SCH (00:24)
[2018-01-31 06:40] LABS: Basophils # 0.1 K/mcL (0.0-0.2); Basophils % 0.6 %; Eosinophils # 0.2 K/mcL (0.0-0.6); Hemoglobin 10.8 g/dL (11.5-15.4); Immature Granulocytes % 0.2 % (0-4); Lymphocytes # 2.2 K/mcL (0.6-4.6); Lymphocytes % 25.8 %; Mean Corpuscular HGB Conc 33.8 g/dL (31.6-35.5); Mean Corpuscular Hemoglobin 29.2 pg (28.0-33.3); Mean Corpuscular Volume 86.5 fL (83.0-100.0); Monocytes # 0.7 K/mcL (0.0-1.3); Monocytes % 8.7 %; Neutrophils # 5.4 K/mcL (1.6-8.9); Platelet Count 301 K/mcL (140-400); Red Cell Distribution Width 13.7 % (11.5-14.5); Segmented Neutrophils % 62.7 %
[2018-01-31 06:55] VITALS: BP 143/73
[2018-01-31 07:03] LABS: Blood Urea Nitrogen 8 mg/dL (8-23); Calcium 8.9 mg/dL (8.6-10.3); Carbon Dioxide 27 mEq/L (23-29); Chloride 98 mEq/L (98-107); Glucose 146 mg/dL (70-105); Magnesium 1.5 mg/dL (1.6-2.6); Osmolality,Calculated 279 (280-300); Potassium 3.5 mEq/L (3.5-5.1); Sodium 134 mEq/L (136-145)
[2018-01-31 07:06] LABS: BUN/Creatinine Ratio 14 (6-26); eGFR For Non-African Americans > 60 (> 60)
--- NOTE | 2018-01-31 09:05 | Discharge Summary ---
Date of Encounter: 01/31/18 Time of Encounter: 08:55 - Discharge Diagnosis (1) Nausea and vomiting Priority: Primary Status: Resolved Qualifiers: Vomiting type: unspecified Vomiting Intractability: non-intractable Qualified Code(s): R11.2 - Nausea with vomiting, unspecified (2) Hyponatremia Priority: Secondary Status: Acute (3) Hypokalemia Priority: Secondary Status: Resolved (4) DM2 (diabetes mellitus, type 2) Priority: Secondary Status: Chronic Qualifiers: Diabetes mellitus termite treater insulin use: without termite treater use Diabetes mellitus complication status: with kidney complications Diabetes mellitus complication detail: with chronic kidney disease Chronic kidney disease stage : stage 3 (moderate) Qualified Code(s): E11.22 - Type 2 diabetes mellitus with diabetic chronic kidney disease; N18.3 - Chronic kidney disease, stage 3 ( moderate); N18.3 - Chronic kidney disease, stage 3 (moderate) (5) Weight loss Priority: Secondary Status: Chronic (6) CVA (cerebral vascular accident) Priority: Secondary Status: Chronic Qualifiers: CVA mechanism: unspecified Qualified Code(s): I63.9 - Cerebral infarction, unspecified (7) Hypertension Priority: Secondary Status: Chronic Qualifiers: Hypertension type: essential hypertension Qualified Code(s): I10 - Essential (primary) hypertension (8) Urinary retention Priority: Secondary Status: Resolved (9) Atrial fibrillation Priority: Secondary Status: Chronic Qualifiers: Atrial fibrillation type: paroxysmal Qualified Code(s): I48.0 - Paroxysmal atrial fibrillation Hospital course: Ms. Fleming is a 73 year old female who came to emergency room stating she had vomiting and diarrhea onset approximately 3 weeks ago. She reports 2-5 episodes of vomiting daily without visible hematemesis. She reports diarrhea has occurred 3-4 times per week without visible melena or hematochezia. She denies significant abdominal pain. She has felt chills without significant fever for approximately 2 days. She was evaluated in emergency room and found to have leukocytosis with left shift and hypokalemia. She was admitted to [facility] floor for ongoing care needs. Initial orders were written by the emergency room physician. I saw her on February 28 and performed the history and physical. She was given IV fluids. Anti-emetics were used as needed. She had no further vomiting after admission. She was given supplemental potassium and hypokalemia normalized. She was given supplemental magnesium and her level improved to 1.5 by day of discharge. I suspect it will continue to normalize since vomiting has resolved. Leukocytosis and left shift resolved by the time of discharge. PT and OT evaluation was done. Recommendation for home health services was made. Alvarez catheter was discontinued and spontaneous voiding occurred. On January 31 she felt improved and stable for discharge home. She will follow with her PCP JASPREET Brock CNP within 1 week. - Time Spent with Patient Total time spent providing and/or coordinating discharge services: - Discharge Medications Home Medications: metFORMIN [Glucophage] 500 mg PO BIDWM #60 tablet 07/17/17 [Rx] OxyCODONE Immed Rel [Roxicodone 5 MG] 5 mg PO Q6HR PRN 3 Days #12 tablet [Rx] Aspirin 81 mg PO DAILY 01/25/18 [History] Famotidine [Pepcid] 20 mg PO DAILY #15 tablet 01/25/18 [Rx] Meclizine HCl [Verticalm] 25 mg PO TID #12 tablet 01/25/18 [Rx] Ondansetron ODT [Zofran ODT] 4 mg SL Q6HR PRN #20 tab.rapdis 01/25/18 [Rx] Rivaroxaban [Xarelto] 20 mg PO QPM 01/25/18 [History] Ciprofloxacin HCl [Cipro] 500 mg PO BID 01/29/18 [History] Allergies/Adverse Reactions: 3 Allergy/AdvReac Type Severity Reaction Status Date / Time No Known Allergies Allergy Verified 01/29/18 09:50 Date of admission: 01/29/18 12:28 Primary care physician: Amarjit Brock CNP Consults: 01/30/18 10:30 Consult to Occupational Therapy [CONS] Routine Comment: Evaluate, develop and implement POC Reason for Consult: weakness Does patient have active BEDREST order?: No Is patient medically & hemodynamically stable?: Yes Patient assessed for mobility or mobilized this visit?: Yes Consult to Physical Therapy [CONS] Routine Comment: Evaluate, develop and implement POC Reason for Consult: weakness Does patient have active BEDREST order?: No Is patient medically & hemodynamically stable?: Yes Patient assessed for mobility or mobilized this visit?: Yes - Constitutional Vitals: Temp Pulse Resp BP Pulse Ox 98.3 F 77 19 143/73 92 01/31/18 06:53 01/31/18 06:53 01/31/18 06:53 01/31/18 06:53 01/31/18 06:53 - Patient Status Disposition: Home Health Service Condition: Fair - Discharge Instructions Follow Up With: Amarjit Brock, [employer]ST[employer] OPERATOR [Primary Care Provider] - 1 week - Diet and Activity Activity: resume usual activities as tolerated Diet: advance to your usual diet - VTE Documentation of Mechanical Device: Graduated compression elastic hosiery
--- NOTE | 2018-01-31 09:12 | Physician Discharge Referral ---
Home Health/Hosp Referral Info Transfer to: Home Health Attending Provider: Mau Provider in Charge Post Discharge: PCP Lida) - Diagnosis (1) Nausea and vomiting Priority: Primary Status: Resolved (2) Hyponatremia Priority: Secondary Status: Acute (3) Hypokalemia Priority: Secondary Status: Resolved (4) DM2 (diabetes mellitus, type 2) Priority: Secondary Status: Chronic (5) Weight loss Priority: Secondary Status: Chronic (6) CVA (cerebral vascular accident) Priority: Secondary Status: Chronic (7) Hypertension Priority: Secondary Status: Chronic (8) Urinary retention Priority: Secondary Status: Resolved (9) Atrial fibrillation Priority: Secondary Status: Chronic - Respiratory Orders Smoking Cessation: Smoking cessation has been advised. For more information, call the [place] Tobacco Quit Line at 4-541-BBIR-NOW. - Diet/Nutrition Diet/Nutrition Orders: No Concentrated Sweets - Activity Activity Orders: Walker - Services Needed Following services are medically necessary services: Nursing, Home Health Aide, Physical Therapy, Occupational Therapy - Transfer Medications Home Medications: metFORMIN [Glucophage] 500 mg PO BIDWM #60 tablet 07/17/17 [Rx] OxyCODONE Immed Rel [Roxicodone 5 MG] 5 mg PO Q6HR PRN 3 Days #12 tablet [Rx] Aspirin 81 mg PO DAILY 01/25/18 [History] Famotidine [Pepcid] 20 mg PO DAILY #15 tablet 01/25/18 [Rx] Meclizine HCl [Verticalm] 25 mg PO TID #12 tablet 01/25/18 [Rx] Ondansetron ODT [Zofran ODT] 4 mg SL Q6HR PRN #20 tab.rapdis 01/25/18 [Rx] Rivaroxaban [Xarelto] 20 mg PO QPM 01/25/18 [History] Ciprofloxacin HCl [Cipro] 500 mg PO BID 01/29/18 [History] Allergies/Adverse Reactions: 3 Allergy/AdvReac Type Severity Reaction Status Date / Time No Known Allergies Allergy Verified 01/29/18 09:50 Certification: Further, I certify that my clinical findings support that this patient is homebound (i.e. absences from home require considerable and taxing effort and are for medical reasons or evangelical services or infrequently or short duration when for other reasons) because: Homebound Reason: Leaving home requires considerable and taxing effort due to condition (Anemia, hypokalemia, weakness) Attestation: My signature below is to certify that this patient is under my care and that I, or nurse practitioner, or a physician's underwriting assistant working with me, has a face-to -face encounter with this patient.
== END 2018-01-31 12:10 | disposition home health service (06) ==
LOC: EMEROOPIK 09:48 → INPPIK 09:48
PROVIDERS: ADMIT Internal Medicine; ATTEND Internal Medicine

== ENCOUNTER 2018-12-07 11:57 | Observation (INO) ==
[2018-12-07] MEDS ORDERED: 0.9 % Sodium Chloride 1,000 ML IVC ONE (11:58)
--- NOTE | 2018-12-07 12:00 | Emergency Department Note ---
Disposition Clinical Impression: Weakness Altered mental status Qualifiers: Altered mental status type: disorientation Qualified Code(s): R41.0 - Disorientation, unspecified UTI (urinary tract infection) Qualifiers: Urinary tract infection type: catheter-associated UTI Indwelling urinary catheter type: indwelling urethral catheter Encounter type: initial encounter Qualified Code(s): T83.511A - Infection and inflammatory reaction due to i ndwelling urethral catheter, initial encounter Disposition: Admitted As Inpatient Condition: Fair Time of Disposition: 12:59 Weakness HPI - General Chief complaint: ED General Medical Stated complaint: general weakness Time Seen by Provider: 12/07/18 11:58 Source: patient, family Mode of arrival: private vehicle Limitations: altered mental status, physical limitation Nursing Notes Reviewed: Yes Vital Signs Reviewed: Yes - History of Present Illness HPI Narrative: The patient was noted yesterday by family to have a little more slurring of her speech. They thought this might of been secondary to her medications or such. Today she is been talking less and looking "like an outer space". She has had some diffuse weakness and inability to stand or walk. They state when she tries to get up from a chair to use her walker she ends up sitting back down. She has not had localizing weakness. They note that she has been acting strange that she seems distant. She has had no known or injury. She has no pain complaint. She has had an most just a slight cough but no shortness of breath. She was questioned have some constipation this has improved juice and Ex-Lax. She has not been complaining of abdominal pain. She does have an indwelling Alvarez catheter that is very cloudy. She has not had any localizing pain or weakness to the extremities. She has not had recent change of medicines, fevers or ill exposures. Pt Subjective Complaint: generalized weakness/fatigue, difficulty ambulating Onset (ago): day(s) (2) Duration: gradually worsening Location: generalized Migration: none Pain Severity: none Improves with: none Worsens with: other (Exertion) Associated symptoms: Reports: confusion, loss of appetite. Denies: chest pain, dark stools, diaphoresis, dysuria, easy bruising, fever/chills, headaches, nausea/vomiting, myalgias, rash, shortness of breath, syncope - Related Data Home Medications Medication Instructions Recorded Confirmed Aspirin 81 mg PO DAILY 01/25/18 11/12/18 Rivaroxaban [Xarelto] 20 mg PO QPM 01/25/18 11/12/18 Calcium 500 + Vit D Caplet 1 tab PO BID 04/23/18 11/12/18 Famotidine [Pepcid] 20 mg PO HS 04/23/18 11/12/18 Meclizine HCl [Verticalm] 25 mg PO TID PRN 04/23/18 11/12/18 Docusate [Colace] 100 mg PO BID 06/06/18 11/12/18 Previous Rx's Medication Instructions Recorded metFORMIN [Glucophage] 500 mg PO BIDWM #60 tablet 07/17/17 Ondansetron ODT [Zofran ODT] 4 mg SL Q6HR PRN #8 tab.rapdis 09/17/18 cephALEXin [Keflex] 1,000 mg PO BID #40 capsule 09/17/18 Ondansetron ODT [Zofran ODT] 4 mg SL Q6HR #10 tab.harsh 11/12/18 Pantoprazole Sodium [Protonix] 40 mg PO DAILY #60 tablet. 11/12/18 Allergies Allergy/AdvReac Type Severity Reaction Status Date / Time ciprofloxacin AdvReac Vomiting Verified 07/25/18 21:19 All systems ED: reviewed and negative except as stated. Past Medical History - Past Medical History Attestation: Yes The following information was validated with the patient. Source: patient, old records reviewed, obtained from family, nursing notes reviewed Medical history: Reports: atrial fibrillation, CVA, diabetes, GERD, hypertension Surgical history: Reports: cholecystectomy Psychiatric history: Reports: no psych history - Social History Smoking Status: Former smoker Smokeless Tobacco Status: No Alcohol use: Reports: none Drug use: Reports: none Physical Exam - General Limitations: altered mental status, physical limitation General appearance: alert, other (Sluggish, distant, following commands) - Head Head exam: atraumatic, normocephalic, normal inspection - Eye Eye exam: Present: normal appearance, PERRL, EOMI. Absent: scleral icterus, conjunctival injection - ENT ENT exam: normal exam, mucous membranes dry - Neck Neck exam: Present: normal inspection, full ROM, trachea midline. Absent: tenderness, meningismus - Chest Chest inspection: Present: normal inspection, symmetric chest wall rise - Respiratory Respiratory exam: Present: normal lung sounds bilaterally. Absent: respiratory distress, wheezes, prolonged expiratory phase - Cardiovascular Cardiovascular exam: Present: regular rate, normal rhythm, normal heart sounds. Absent: tachycardia - Abdominal Exam Abdominal exam: Present: soft, Non-Tender, normal bowel sounds. Absent: tenderness, distention, guarding, rebound, rigidity, Michelle's sign, tenderness at McBurney's Point, pulsatile mass - Extremities Exam Extremities exam: Present: normal inspection, full ROM, normal capillary refill. Absent: tenderness, pedal edema, calf tenderness - Expanded Lower Extremity Exam Neurovascular/Tendon exam: Present: normal capillary refill Gait: not tested/not observed - Neurological Exam Neurological exam: Present: alert, CN II-XII intact. Absent: oriented X3, motor sensory deficit (Weak all over) - Psychiatric Psychiatric exam: Present: flat affect. Absent: agitated, anxious - Skin Skin exam: Present: warm, dry, intact, normal color. Absent: rash, diaphoresis, pallor Course Course Narrative: 1300: With return of all testing, care is discussed with Dr. León. He is agreeable with inpatient observation, antibiotic administration and hydration. He will follow her mental status and weakness clinically. Verbal orders are obtained for her observation. Vital Signs Temperature 97.4 F L 12/07/18 11:58 Pulse Rate 78 12/07/18 11:58 Respiratory Rate 17 12/07/18 11:58 Blood Pressure 183/82 12/07/18 11:58 O2 Sat by Pulse Oximetry 96 12/07/18 11:58 Temperature 97.4 F L 12/07/18 11:58 Pulse Rate 78 12/07/18 13:18 Respiratory Rate 17 12/07/18 13:18 Blood Pressure 154/82 12/07/18 13:18 O2 Sat by Pulse Oximetry 97 12/07/18 13:18 Oxygen Delivery Oxygen Delivery Room Air Weakness - Differential Diagnosis Differential Diagnosis: Likely: anemia, hypoglycemia, sepsis/infection, dehydration, medication effect, stroke, metabolic - Medical Records Medical records reviewed: Yes I reviewed the patient's medical records. Patient was seen with a similar presentation in April 2018 with the admitting H&P as follows: "History of present illness: Ms. Fleming is a 73 year old female with a past medical history of diabetes, atrial fibrillation not on anticoagulation, CVA, urinary retention with chronic indwelling Alvarez who presents to the ED with a chief complaint of abdominal pain. Patient is a poor historian and no family was at bedside to provide hi story and therefore much of the history was obtained from medical records and ED report. Patient has had worsening abdominal pain for the past 3 days. At the time of my assessment, patient denied any abdominal pain. However, pain reported to be dull, nonradiating with no aggravating or alleviating factors. Has been reports of decreased appetite since January as well as poor PO intake due to e pisodes of nonbloody, nonbilious emesis after meals. Patient currently has a chronic indwelling Alvarez due to history of urinary retention with history of recurrent UTIs. Patient recently had her Alvarez replaced due to an obstruction and was started on Bactrim setting of an elevated white count of 20K which has trended down to 14.3. Urine culture obtained on the grew positive for Proteus mirabilis sensitive to Bactrim. UA performed here also suggestive of UTI. Patient's daughter also reporting that she is unable to take care of her mother given her comorbidities and is requesting help with placement at an ECF." - Lab Data Lab results reviewed: Yes I reviewed the patient's lab results. Result diagrams: 12/07/18 12:11 12/07/18 12:11 Lab Results 12/07/18 12/07/18 12/07/18 Range/Units 12:11 12:11 12:11 WBC 10.1 (4.3-11.1) K/mcL RBC 3.73 L (3.82-4.97) M/mcL Hgb 10.9 L (11.5-15.4) g/dL Hct 32.7 L (35.3-44.9) % MCV 87.7 (83.0-100.0) fL MCH 29.2 (28.0-33.3) pg MCHC 33.3 (31.6-35.5) g/dL RDW 13.7 (11.5-14.5) % Plt Count 344 (140-400) K/mcL MPV 10.0 (9.4-12.4) fL Immature Gran % 0.3 (0-4) % Seg Neutrophils % 70.9 % Lymphocytes % 20.7 % Monocytes % 6.1 % Eosinophils % 1.5 % Basophils % 0.5 % Neutrophils # 7.1 (1.6-8.9) K/mcL Lymphocytes # 2.1 (0.6-4.6) K/mcL Monocytes # 0.6 (0.0-1.3) K/mcL Eosinophils # 0.2 (0.0-0.6) K/mcL Basophils # 0.1 (0.0-0.2) K/mcL PT 31.3 H (9.4-12.1) Seconds INR 2.8 Sodium 138 (136-145) mEq/L Potassium 3.3 L (3.5-5.1) mEq/L Chloride 99 (98-107) mEq/L Carbon Dioxide 30 H (23-29) mEq/L BUN 14 (8-23) mg/dL Creatinine 0.67 (0.60-1.20) mg/dL Est GFR ( Amer) > 60 (> 60) Est GFR (Non-Af Amer) > 60 (> 60) BUN/Creatinine Ratio 21 (6-26) Glucose 103 (70-105) mg/dL Calculated Osmolality 287 (280-300) Lactic Acid (0.5-2.2) mmol/L Calcium 9.4 (8.6-10.3) mg/dL Total Bilirubin 0.4 (0.3-1.0) mg/dL AST 12 L (13-39) Units/L ALT 7 (7-52) Units/L Alkaline Phosphatase 48 (34-104) Units/L Troponin I < 0.03 (< 0.04) ng/mL Serum Total Protein 7.3 (6.4-8.9) g/dL Albumin 4.1 (3.5-5.7) g/dL Globulin 3.2 (2.4-3.5) g/dL Albumin/Globulin Ratio 1.3 (1.1-2.2) Urine Color (Yellow) Urine Clarity (Clear) Urine pH (5.0-8.0) pH Units Ur Specific [place] (1.010-1.025) Urine Protein (Neg-Trace) mg/dL Urine Glucose (UA) (Normal) mg/dL Urine Ketones (Negative) mg/dL Urine Blood (Negative) Urine Nitrite (Negative) Urine Bilirubin (Negative) Urine Urobilinogen (Normal) mg/dL Ur Leukocyte Esterase (Negative) Urine Microscopic RBC (0-3) per hpf Urine Microscopic WBC (0-3) per hpf Ur Squamous Epith Cells (None-Few) per lpf Ur Renal Epithelial Cell (None-Few) per hpf Triple Phos Crystals Amorphous Sediment (Few) Urine Bacteria (None-Few) per hpf Urine Mucus (Few) Ur Culture Indicated? (NO) 12/07/18 12/07/18 Range/Units 12:11 12:14 WBC (4.3-11.1) K/mcL RBC (3.82-4.97) M/mcL Hgb (11.5-15.4) g/dL Hct (35.3-44.9) % MCV (83.0-100.0) fL MCH (28.0-33.3) pg MCHC (31.6-35.5) g/dL RDW (11.5-14.5) % Plt Count (140-400) K/mcL MPV (9.4-12.4) fL Immature Gran % (0-4) % Seg Neutrophils % % Lymphocytes % % Monocytes % % Eosinophils % % Basophils % % Neutrophils # (1.6-8.9) K/mcL Lymphocytes # (0.6-4.6) K/mcL Monocytes # (0.0-1.3) K/mcL Eosinophils # (0.0-0.6) K/mcL Basophils # (0.0-0.2) K/mcL PT (9.4-12.1) Seconds INR Sodium (136-145) mEq/L Potassium (3.5-5.1) mEq/L Chloride (98-107) mEq/L Carbon Dioxide (23-29) mEq/L BUN (8-23) mg/dL Creatinine (0.60-1.20) mg/dL Est GFR ( Amer) (> 60) Est GFR (Non-Af Amer) (> 60) BUN/Creatinine Ratio (6-26) Glucose (70-105) mg/dL Calculated Osmolality (280-300) Lactic Acid 1.3 (0.5-2.2) mmol/L Calcium (8.6-10.3) mg/dL Total Bilirubin (0.3-1.0) mg/dL AST (13-39) Units/L ALT (7-52) Units/L Alkaline Phosphatase (34-104) Units/L Troponin I (< 0.04) ng/mL Serum Total Protein (6.4-8.9) g/dL Albumin (3.5-5.7) g/dL Globulin (2.4-3.5) g/dL Albumin/Globulin Ratio (1.1-2.2) Urine Color Yellow (Yellow) Urine Clarity Turbid A (Clear) Urine pH 8.5 H (5.0-8.0) pH Units Ur Specific [place] 1.020 (1.010-1.025) Urine Protein 100 H (Neg-Trace) mg/dL Urine Glucose (UA) Normal (Normal) mg/dL Urine Ketones Negative (Negative) mg/dL Urine Blood Large H (Negative) Urine Nitrite Positive A (Negative) Urine Bilirubin Negative (Negative) Urine Urobilinogen Normal (Normal) mg/dL Ur Leukocyte Esterase Large H (Negative) Urine Microscopic RBC 30-50 H (0-3) per hpf Urine Microscopic WBC TNTC H (0-3) per hpf Ur Squamous Epith Cells Few (None-Few) per lpf Ur Renal Epithelial Cell Few (None-Few) per hpf Triple Phos Crystals Present Amorphous Sediment Many H (Few) Urine Bacteria Many H (None-Few) per hpf Urine Mucus Many H (Few) Ur Culture Indicated? YES A (NO) - Radiology Data Radiology results reviewed: Yes I reviewed the patient's radiology results. Single view chest x-ray is performed. This does not demonstrate evidence for infiltrate, effusion, pneumothorax, foreign body or heart failure. The cardiac silhouette is normal. I do not see abnormality to the osseous structures of the chest. This is on my interpretation. CT head is performed. This is reviewed on bone and soft tissue windows. Imaging is oblique but able to be interpreted. There is no evidence for acute intracranial bleed, shift, mass or edema. It appears the patient has had an old left cerebellar infarct. Mastoids and sinuses appear normal. There is no fracture evident. This is on my interpretation. Impressions Chest X-Ray 12/07/18 11:58 IMPRESSION: No acute cardiopulmonary abnormality identified. D/ / David Reyes MD / David Reyes MD Interpreting Provider: David Reyes MD Head CT 12/07/18 11:59 IMPRESSION: No hemorrhage or mass identified. Moderate size remote appearing left cerebellar infarct, new compared to 01/25/2018 Underlying atrophy with periventricular white matter disease, likely due to small-vessel ischemic change D/ / Bora Brian MD / Bora Brian MD Interpreting Provider: Bora Brian MD - EKG Data EKG attestation: Yes I reviewed and interpreted this EKG. EKG shows normal: sinus rhythm, axis, intervals, QRS complexes, ST-T waves Rate: normal When compared to previous EKG there are: no significant changes (11/18/2018) Interpretation: no acute changes, normal EKG Critical Care Time Critical Care Time: Yes Total Critical Care Time: 50 Attestation: As this patient did present with signs and symptoms of potential life-threaten ing illness requiring my urgent intervention, total critical care time in this patient's care has been 50 minutes, not withstanding separately reportable procedures.
[2018-12-07] MEDS ORDERED: Piperacillin/Tazobactam 3.375 GM in 0.9 % Sodium Chloride Mini Bag 100 ML IVPB ONE (12:14)
[2018-12-07 12:39] LABS: Bilirubin,Urine Negative (Negative); Blood,Urine Large (Negative); Clarity,Urine Turbid (Clear); Color,Urine Yellow (Yellow); Glucose,Urine (UA) Normal (Normal); Ketones,Urine Negative (Negative); Leukocyte Esterase,Urine Large (Negative); Nitrite,Urine Positive (Negative); PH,Urine 8.5 pH Units (5.0-8.0); Protein,Urine 100 mg/dL (Neg-Trace); Urobilinogen,Urine Normal (Normal)
[2018-12-07 12:41] LABS: Basophils # 0.1 K/mcL (0.0-0.2); Basophils % 0.5 %; Eosinophils # 0.2 K/mcL (0.0-0.6); Eosinophils % 1.5 %; Hematocrit 32.7 % (35.3-44.9); Hemoglobin 10.9 g/dL (11.5-15.4); Immature Granulocytes % 0.3 % (0-4); Lymphocytes # 2.1 K/mcL (0.6-4.6); Lymphocytes % 20.7 %; Mean Corpuscular HGB Conc 33.3 g/dL (31.6-35.5); Mean Corpuscular Hemoglobin 29.2 pg (28.0-33.3); Mean Corpuscular Volume 87.7 fL (83.0-100.0); Monocytes # 0.6 K/mcL (0.0-1.3); Monocytes % 6.1 %; Neutrophils # 7.1 K/mcL (1.6-8.9); Platelet Count 344 K/mcL (140-400); Red Blood Count 3.73 M/mcL (3.82-4.97); Red Cell Distribution Width 13.7 % (11.5-14.5); Segmented Neutrophils % 70.9 %; White Blood Count 10.1 K/mcL (4.3-11.1)
[2018-12-07 12:44] LABS: INR 2.8; Prothrombin Time 31.3 Seconds (9.4-12.1)
[2018-12-07 12:47] LABS: Amorphous Sediment,Urine Many (Few); Bacteria,Urine Many per hpf (None-Few); RBC,Urine 30-50 per hpf (0-3); Renal Epithelial Cells,Urine Few per hpf (None-Few); Squamous Epithelial Cell,Urine Few per lpf (None-Few); Triple Phosphate Crystal,Urine Present; WBC,Urine TNTC per hpf (0-3)
[2018-12-07 12:48] LABS: Mucus,Urine Many (Few)
[2018-12-07 12:53] LABS: Alanine Aminotransferase 7 Units/L (7-52); Albumin 4.1 g/dL (3.5-5.7); Albumin/Globulin Ratio 1.3 (1.1-2.2); Alkaline Phosphatase 48 Units/L (34-104); Aspartate Amino Transferase 12 Units/L (13-39); BUN/Creatinine Ratio 21 (6-26); Bilirubin,Total 0.4 mg/dL (0.3-1.0); Blood Urea Nitrogen 14 mg/dL (8-23); Calcium 9.4 mg/dL (8.6-10.3); Carbon Dioxide 30 mEq/L (23-29); Chloride 99 mEq/L (98-107); Globulin 3.2 g/dL (2.4-3.5); Glucose 103 mg/dL (70-105); Osmolality,Calculated 287 (280-300); Potassium 3.3 mEq/L (3.5-5.1); Sodium 138 mEq/L (136-145); Total Protein 7.3 g/dL (6.4-8.9); eGFR For African Americans > 60 (> 60); eGFR For Non-African Americans > 60 (> 60)
[2018-12-07 12:57] LABS: Troponin I < 0.03 ng/mL (< 0.04)
[2018-12-07] MEDS ORDERED: 0.9 % Sodium Chloride 1,000 ML IVC SCH ×2 (13:00→14:02)
[2018-12-07] MEDS ORDERED: MOM Conc 10 ML UD.LIQ PO PRN (14:02)
[2018-12-07] MEDS ORDERED: D5% in Water 1,000 ML IVC PRN (14:02)
[2018-12-07] MEDS ORDERED: Ondansetron ODT 4 MG TAB.RAPDIS SL PRN ×2 (14:02→14:37)
[2018-12-07] MEDS ORDERED: Mag Hydrox/Al Hydrox/Simeth 30 ML UDC PO PRN (14:02)
[2018-12-07] MEDS ORDERED: Dextrose Gel 15 GM/37.5 ML TUBE PO PRN ×2 (14:02)
[2018-12-07] MEDS ORDERED: *HR* Dextrose 50 % in Water (Syg) 50 ML SYRINGE IVP PRN (14:02)
[2018-12-07] MEDS ORDERED: Naloxone 0.4 MG/ML INJ IVP PRN (14:02)
--- NOTE | 2018-12-07 15:04 | Electrocardiograph Report ---
[address] [address] Test Date: 2018-12-07 Pat Name: Javy Fleming Department: EDP-14 Room: [facility] Gender: F [place] Laborer: : 1945 Requested By: Augusto Abbott Order Number: [id number] Reading MD: Tutu Saha Measurements Intervals [place] Rate: 77 P: 58 ID: [id number] QRS: 63 QRSD: 100 T: -14 QT: 354 QTc: 401 Interpretive Statements Sinus rhythm Electronically Signed On 12-07-2018 15:02:28 EDT by Tutu Saha
[2018-12-07] MEDS: Insulin LISPRO 300 UNITS/3 ML VIAL SQ SCH (16:57)
[2018-12-07] MEDS: *HR* Metformin 500 MG TABLET PO SCH (16:58)
--- NOTE | 2018-12-07 17:09 | Internal Med History&Physical ---
Date of Encounter: 12/07/18 Time of Encounter: 16:25 Assessment and Plan (1) CVA (cerebral vascular accident) Current visit: No Status: Chronic Duration uncertain. After lengthy discussion with family it was agreed to continue present dose Xarelto and aspirin. PT and OT evaluations and carotid Doppler study will be ordered. Qualifiers: CVA mechanism: unspecified Qualified Code(s): I63.9 - Cerebral infarction, unspecified (2) DM2 (diabetes mellitus, type 2) Current visit: No Status: Chronic Check hemoglobin A1c in a.m. Qualifiers: Diabetes mellitus roasterman insulin use: without correction use Diabetes mellitus complication status: with kidney complications Diabetes mellitus complication detail: with chronic kidney disease Chronic kidney disease stage: stage 3 (moderate) Qualified Code(s): E11.22 - Type 2 diabetes mellitus with diabetic chronic kidney disease; N18.3 - Chronic kidney disease, stage 3 (moderate) (3) Hypokalemia Current visit: No Status: Acute Supplemental potassium will be given. (4) Atrial fibrillation Current visit: No Status: Chronic Continue Xarelto Qualifiers: Atrial fibrillation type: paroxysmal Qualified Code(s): I48.0 - Paroxysmal atrial fibrillation (5) Dementia Current visit: No Status: Chronic MMSE will be ordered. Qualifiers: Dementia type: unspecified type Dementia behavioral disturbance: without behavioral disturbance Qualified Code(s): F03.90 - Unspecified dementia without behavioral disturbance (6) Anemia Current visit: No Status: Acute Anemia testing will be done in a.m. Qualifiers: Chronic kidney disease stage: unspecified stage Qualified Code(s): N18.9 - Chronic kidney disease, unspecified; D63.1 - Anemia in chronic kidney disease Internal Medicine - H&P: HPI Chief complaint: Mental status change Admitted From: Emergency Dept Plans for Post Hospital Care: Home History of present illness: Ms. Fleming is a 73 year old female who came to emergency room after family noted intermittent altered mental status and functional decline onset 12/04/2018. Family states she had several episodes of decreased talking ability with slurred speech/dysarthria. They report she had difficulty arising from a chair and seemed to be staring off in space. She was evaluated in emergency room where head CT showed moderate size remote appearing left cerebellar infarct which was new compared to 01/25/2018 scan. There was chronic small vessel ischemic changes with periventricular white matter disease but no acute hemorrhage or mass identified. She was admitted to [facility] floor for ongoing care needs. She reported on previous admissions she had sustained a stroke approximately 1997 leaving her with slight right hemiparesis. She typically ambulates with a non-wheeled walker at home. She has a manual wheelchair available also. She has not had documented seizures. She has occasionally complained to family she feels "dizzy". Past Med Surg Social Fam HX - Past Medical History Medical history: atrial fibrillation, CVA, diabetes, GERD, hypertension Additional medical history: chronic mancuso cath( per daughter's states had rt hip surg july 2017 and had mancuso cath placed in dec 2017 r/t because of diabetes, the bladder wasn't beck right and causing urinary retention which therefore caused the pt to be septic) pt has home for nurse to change out mancuso cath every month Psychiatric history: no psych history - Past Surgical History Surgical History: cholecystectomy Additional surgical history: RT hip surgery - Social History Smoking Status: Former smoker Smokeless Tobacco Status: No Alcohol use: none Drug use: none - Family History Daughter Hx Family Endocrine Disorder: Yes Son Hx Family Endocrine Disorder: Yes Mother Hx Family Cardiac Disorders: Yes (HTN) Hx Family Cancer: Yes Hx Family Endocrine Disorder: Yes (DM) Internal Medicine - H&P: Meds metFORMIN [Glucophage] 500 mg PO BIDWM #60 tablet 07/17/17 [Rx] Aspirin 81 mg PO DAILY 01/25/18 [History] Rivaroxaban [Xarelto] 20 mg PO QPM 01/25/18 [History] Calcium 500 + Vit D Caplet 1 tab PO BID 04/23/18 [History] Famotidine [Pepcid] 20 mg PO HS 04/23/18 [History] Meclizine HCl [Verticalm] 25 mg PO TID PRN 04/23/18 [History] Docusate [Colace] 100 mg PO BID 06/06/18 [History] Ondansetron ODT [Zofran ODT] 4 mg SL Q6HR PRN #8 tab.rapdis 09/17/18 [Rx] cephALEXin [Keflex] 1,000 mg PO BID #40 capsule 09/17/18 [Rx] Ondansetron ODT [Zofran ODT] 4 mg SL Q6HR #10 tab.rapdis 07/11/19 [Rx] Pantoprazole Sodium [Protonix] 40 mg PO DAILY #60 tablet. 11/12/18 [Rx] Allergy/AdvReac Type Severity Reaction Status Date / Time ciprofloxacin AdvReac Vomiting Verified 07/25/18 21:19 All Systems PM: A 10-system review of systems was performed and is negative for pertinent findings except as documented above in the HPI. Review of systems: Review of systems from her January 2018 [facility] hospitalization were reviewed and revised as below. Gen.: Her weight is unchanged from approximately 64 kg since the January 2018 [facility] hospitalization. Cardiovascular: She has history of hypertension but denies UT heart failure angina DVT or pulmonary embolus. She has paroxysmal AF and is on Xarelto. Respiratory: She smoked from approximately age [age] never up to 1 pack per day. She denies chronic lung disease and does not use home oxygen GI: She had remote cholecystectomy. She denies disorders of her liver or exocrine pancreas. : She denies hematuria dysuria or kidney stones Neurologic: As per history of present illness Endocrine: She was diagnosed with DM 2 approximately 2003. She denies known thyroid disease or hyperlipidemia Hematology/oncology: She denies blood disorders or cancers. She anemia postoperative hip fracture repair which has now resolved. Psychiatric: She denies anxiety depression or other mental health issues [place] skeletal: She had right hip fracture repair with IM nail fixation repair July 2017. She has DJD but denies gout or other bone joint or muscle disorders. - Constitutional Vitals: Temp Pulse Resp BP Pulse Ox 98.0 F 80 16 139/73 97 12/07/18 14:57 12/07/18 14:57 12/07/18 14:57 12/07/18 14:57 12/07/18 14:57 Exam: Gen.: She is a well-developed well-nourished female lying in bed who appears in no acute distress HEENT: Head is atraumatic and normocephalic. Eyes: EOMI. There is no scleral icterus. Mouth: Mucosa is moist. Neck: Supple and nontender. There is no thyromegaly or adenopathy noted. Heart: Regular without murmurs gallops or ectopics Lungs: No wheezes or crackles are heard. Abdomen: Soft and nontender. No masses or guarding are noted. Extremities: There is no cyanosis edema or clubbing noted. Dorsalis pedis and posterior tibial pulses are 1-2 over 2 bilaterally. Neurologic: Mental status: She is awake and follows commands. She answers a few questions with short answers but is not conversational. Cranial nerves: Smile is symmetric. Forehead wrinkles bilaterally. Tongue protrudes midline. EOMI. Motor: There is no significant pronator drift observed. She does not perform ankle flexion or extension strength against resistance well with either foot. Rapid finger movements are slowed symmetrically. Cerebellar: Finger to nose is intact bilaterally. Skin: Warm and dry Internal Med - H&P Results - Labs CBC & Chem 7: 12/07/18 12:11 12/07/18 12:11 Labs: Short CBC 12/07/18 Range/Units 12:11 WBC 10.1 (4.3-11.1) K/mcL Hgb 10.9 L (11.5-15.4) g/dL Hct 32.7 L (35.3-44.9) % Plt Count 344 (140-400) K/mcL Neutrophils # 7.1 (1.6-8.9) K/mcL BMP 12/07/18 12:11 Sodium 138 Potassium 3.3 L Chloride 99 Carbon Dioxide 30 H BUN 14 Creatinine 0.67 Glucose 103 Calcium 9.4 Cardiac Enzymes 12/07/18 Range/Units 12:11 Troponin I < 0.03 (< 0.04) ng/mL Liver Function 12/07/18 Range/Units 12:11 Total Bilirubin 0.4 (0.3-1.0) mg/dL AST 12 L (13-39) Units/L ALT 7 (7-52) Units/L Alkaline Phosphatase 48 (34-104) Units/L Albumin 4.1 (3.5-5.7) g/dL Urine 12/07/18 Range/Units 12:14 Urine Color Yellow (Yellow) Urine Clarity Turbid A (Clear) Urine pH 8.5 H (5.0-8.0) pH Units Ur Specific [place] 1.020 (1.010-1.025) Urine Protein 100 H (Neg-Trace) mg/dL Urine Glucose (UA) Normal (Normal) mg/dL - Impressions ITS Impressions Chest X-Ray 12/07/18 11:58 IMPRESSION: No acute cardiopulmonary abnormality identified. D/ / 12/07/2018 13:04:51 David Reyes MD / [facility] Interpreting Provider: David Reyes MD Head CT 12/07/18 11:59 IMPRESSION: No hemorrhage or mass identified. Moderate size remote appearing left cerebellar infarct, new compared to 01/25/2018 Underlying atrophy with periventricular white matter disease, likely due to small-vessel ischemic change D/ / Bora Brian MD / Bora Brian MD Interpreting Provider: Bora Brian MD
[2018-12-07] MEDS: *HR* Rivaroxaban 10 MG TABLET PO SCH (17:54)
[2018-12-07] MEDS: 0.45 % Sodium Chloride w/KCl 20 MEQ/1,000 ML MLS IVC SCH (17:55)
[2018-12-07] MEDS ORDERED: Piperacillin/Tazobactam 3.375 GM in 0.9 % Sodium Chloride Mini Bag 100 ML IVPB SCH (20:00)
[2018-12-07] MEDS: Famotidine 20 MG TABLET PO SCH (22:08)
[2018-12-08] MEDS: 0.45 % Sodium Chloride w/KCl 20 MEQ/1,000 ML MLS IVC SCH (06:52)
[2018-12-08 08:57] LABS: BUN/Creatinine Ratio 17 (6-26); Blood Urea Nitrogen 11 mg/dL (8-23); Calcium 8.8 mg/dL (8.6-10.3); Carbon Dioxide 29 mEq/L (23-29); Chloride 101 mEq/L (98-107); Glucose 109 mg/dL (70-105); Osmolality,Calculated 286 (280-300); Potassium 4.1 mEq/L (3.5-5.1); Sodium 138 mEq/L (136-145); eGFR For African Americans > 60 (> 60); eGFR For Non-African Americans > 60 (> 60)
[2018-12-08 08:59] LABS: % Iron Saturation 14 % (15-50); Iron 41 mcg/dL (50-170); Transferrin 215 mg/dL (203-362)
[2018-12-08 09:17] LABS: Ferritin 279 ng/mL (10-120)
[2018-12-08 09:22] LABS: Folate 11.9 ng/mL (3.0-16.0)
[2018-12-08 09:26] LABS: Thyroid Stimulating Hormone 1.687 mcIU/mL (0.340-5.600)
[2018-12-08] MEDS: *HR* Metformin 500 MG TABLET PO SCH ×2 (09:30→17:07)
[2018-12-08] MEDS: Aspirin 81 MG TAB.CHEW PO SCH (09:30)
[2018-12-08] MEDS: Insulin LISPRO 300 UNITS/3 ML VIAL SQ SCH ×3 (09:30→17:10)
[2018-12-08] MEDS ORDERED: Cyanocobalamin (B-12) 1,000 MCG/ML VIAL IM ONE (09:46)
--- NOTE | 2018-12-08 09:51 | Internal Med Progress Note ---
Date of Encounter: 12/08/18 Time of Encounter: 09:45 - Assessment and plan (1) CVA (cerebral vascular accident) Current Visit: No Status: Chronic Assessment and plan: December 08. Preliminary carotid Doppler report states no significant stenosis. Continue present dose aspirin and Xarelto. PT and OT evaluations have been ordered. Qualifiers: CVA mechanism: unspecified Qualified Code(s): I63.9 - Cerebral infarction, unspecified (2) DM2 (diabetes mellitus, type 2) Current Visit: No Status: Chronic Assessment and plan: December 08. Hemoglobin A1c pending. Qualifiers: Diabetes mellitus residential insulin use: without assistant terminal manager use Diabetes mellitus complication status: with kidney complications Diabetes mellitus complication detail: with chronic kidney disease Chronic kidney disease stage: stage 3 (moderate) Qualified Code(s): E11.22 - Type 2 diabetes mellitus with diabetic chronic kidney disease; N18.3 - Chronic kidney disease, stage 3 (moderate) (3) Hypokalemia Current Visit: No Status: Acute Assessment and plan: December 08. Potassium normal at 4.1 now. (4) Atrial fibrillation Current Visit: No Status: Chronic Assessment and plan: December 08. Continue Xarelto and aspirin. Qualifiers: Atrial fibrillation type: paroxysmal Qualified Code(s): I48.0 - Paroxysmal atrial fibrillation (5) Dementia Current Visit: No Status: Chronic Assessment and plan: December 08. MMSE pending. B12 level was low at 202. B12 injection will be given. Qualifiers: Dementia type: unspecified type Dementia behavioral disturbance: without behavioral disturbance Qualified Code(s): F03.90 - Unspecified dementia without behavioral disturbance (6) Anemia Current Visit: No Status: Acute Assessment and plan: December 08. Anemia testing showed iron 41, transferrin saturation 14%, transferrin 215, ferritin 279, B12 202, and folate 11.9. She will be given a B12 injection and started on oral B12 supplement. Qualifiers: Chronic kidney disease stage: unspecified stage Qualified Code(s): N18.9 - Chronic kidney disease, unspecified; D63.1 - Anemia in chronic kidney disease - Subjective Interval history: December 08. She has no new complaints. - Constitutional Vitals: Temp Pulse Resp BP Pulse Ox 98.3 F 75 16 131/79 94 12/08/18 06:01 12/08/18 06:01 12/08/18 06:01 12/08/18 06:01 12/08/18 06:01 Exam: She is sitting in a chair at bedside resting comfortably. She is much more conversive today and appropriate in conversation. I reviewed her medications and lab results. Internal Medicine: Result - Labs CBC & Chem 7: 12/07/18 12:11 12/08/18 07:10 Labs: Short CBC 12/07/18 Range/Units 12:11 WBC 10.1 (4.3-11.1) K/mcL Hgb 10.9 L (11.5-15.4) g/dL Hct 32.7 L (35.3-44.9) % Plt Count 344 (140-400) K/mcL Neutrophils # 7.1 (1.6-8.9) K/mcL BMP 12/07/18 12/08/18 12:11 07:10 Sodium 138 138 Potassium 3.3 L 4.1 Chloride 99 101 Carbon Dioxide 30 H 29 BUN 14 11 Creatinine 0.67 0.64 Glucose 103 109 H Calcium 9.4 8.8 Cardiac Enzymes 12/07/18 Range/Units 12:11 Troponin I < 0.03 (< 0.04) ng/mL Liver Function 12/07/18 Range/Units 12:11 Total Bilirubin 0.4 (0.3-1.0) mg/dL AST 12 L (13-39) Units/L ALT 7 (7-52) Units/L Alkaline Phosphatase 48 (34-104) Units/L Albumin 4.1 (3.5-5.7) g/dL Urine 12/07/18 Range/Units 12:14 Urine Color Yellow (Yellow) Urine Clarity Turbid A (Clear) Urine pH 8.5 H (5.0-8.0) pH Units Ur Specific [place] 1.020 (1.010-1.025) Urine Protein 100 H (Neg-Trace) mg/dL Urine Glucose (UA) Normal (Normal) mg/dL - ABG Interpretation ABG results: PT/INR, D-dimer PT 31.3 Seconds (9.4-12.1) H 12/07/18 12:11 - Impressions Impressions Chest X-Ray 12/07/18 11:58 IMPRESSION: No acute cardiopulmonary abnormality identified. D/ / 12/07/2018 13:04:51 David Reyes MD / [facility] Interpreting Provider: David Reyes MD Head CT 12/07/18 11:59 IMPRESSION: No hemorrhage or mass identified. Moderate size remote appearing left cerebellar infarct, new compared to 01/25/2018 Underlying atrophy with periventricular white matter disease, likely due to small-vessel ischemic change D/ / Bora Brian MD / Bora Brian MD Interpreting Provider: Bora Brian MD Consult Discharge Plan - Plan Referrals: Seble Plasencia, BIOLOGICAL ENGINEER [Primary Care Provider] - 1 week
[2018-12-08 10:43] LABS: Estimated Average Glucose 137 mg/dl
[2018-12-08] MEDS: *HR* Rivaroxaban 10 MG TABLET PO SCH (17:07)
[2018-12-08] MEDS: Famotidine 20 MG TABLET PO SCH (20:07)
[2018-12-09 06:27] VITALS: BP 132/72
[2018-12-09] MEDS: Aspirin 81 MG TAB.CHEW PO SCH (08:43)
[2018-12-09] MEDS: Insulin LISPRO 300 UNITS/3 ML VIAL SQ SCH (08:43)
[2018-12-09] MEDS: *HR* Metformin 500 MG TABLET PO SCH (08:43)
--- NOTE | 2018-12-09 09:55 | Discharge Summary ---
Orders not resulted at time of discharge: Pending orders 12/07/18 12:11 Culture,Blood [BC] Stat 12/07/18 12:14 Culture,Urine [RM] Stat Date of Encounter: 12/09/18 Time of Encounter: 09:40 - Discharge Diagnosis (1) CVA (cerebral vascular accident) Priority: Primary Status: Chronic Qualifiers: CVA mechanism: unspecified Qualified Code(s): I63.9 - Cerebral infarction, unspecified (2) DM2 (diabetes mellitus, type 2) Priority: Secondary Status: Chronic Qualifiers: Diabetes mellitus penitentiary insulin use: without intermediate card tender use Diabetes mellitus complication status: with kidney complications Diabetes mellitus complication detail: with chronic kidney disease Chronic kidney disease stage: stage 3 (moderate) Qualified Code(s): E11.22 - Type 2 diabetes mellitus with diabetic chronic kidney disease; N18.3 - Chronic kidney disease, stage 3 (moderate) (3) Hypokalemia Priority: Secondary Status: Resolved (4) Atrial fibrillation Priority: Secondary Status: Chronic Qualifiers: Atrial fibrillation type: paroxysmal Qualified Code(s): I48.0 - Paroxysmal atrial fibrillation (5) Dementia Priority: Secondary Status: Chronic Qualifiers: Dementia type: unspecified type Dementia behavioral disturbance: without behavioral disturbance Qualified Code(s): F03.90 - Unspecified dementia without behavioral disturbance (6) Anemia Priority: Secondary Status: Acute Qualifiers: Chronic kidney disease stage: unspecified stage Qualified Code(s): N18.9 - Chronic kidney disease, unspecified; D63.1 - Anemia in chronic kidney disease (7) B12 deficiency Priority: Secondary Status: Acute (8) Hypomagnesemia Priority: Secondary Status: Acute Hospital course: Ms. Fleming is a 73 year old female who came to emergency room after family noted intermittent altered mental status and functional decline onset 12/04/2018. Family states she had several episodes of decreased talking ability with slurred speech/dysarthria. They report she had difficulty arising from a chair and seemed to be staring off in space. She was evaluated in emergency room where head CT showed moderate size remote appearing left cerebellar infarct which was new compared to 01/25/2018 scan. There was chronic small vessel ischemic changes with periventricular white matter disease but no acute hemorrhage or mass identified. She was admitted to [facility] for ongoing care needs. Initial orders were written by the emergency room physician. I saw her on December 07 and performed the history and physical. Carotid Doppler study showed bilateral nonstenotic plaque. After lengthy discussion with family it was agreed to continue home doses of Xarelto and aspirin. PT and OT evaluations with ongoing intervention were done. The patient had no further episodes of decreased responsiveness. Hemoglobin A1c returned satisfactory at 6.4%. Magnesium level returned low at 1.3. She will be started on magnesium oxide 400 mg daily. A 1 week prescription was given. Her PCP can monitor labs. Anemia testing showed iron 41, transferrin saturation 14%, transferrin 215, ferritin 279, B12 202, and folate 11.9. She was given a B12 injection and will start oral B12 supplement after discharge. Her PCP can monitor labs. TSH was normal at 1.687. She was given a dose of antibiotics in emergency room for possible UTI. She had no symptoms of UTI. Urinalysis findings reflected chronic indwelling Alvarez. No additional antibiotics will be given at discharge. On December 09 she was stable for discharge home. She will follow with her PCP Seble Plasencia CNP within 1 week. - Time Spent with Patient Total time spent providing and/or coordinating discharge services: - Discharge Medications Prescriptions: New Magnesium Oxide 400 mg PO DAILY #7 tablet Cyanocobalamin (B-12) [Vitamin B12] 1,000 mcg PO DAILY #30 tablet Simvastatin [Zocor] 20 mg PO QPM tablet Continued Meclizine HCl [Verticalm] 25 mg PO TID PRN PRN Reason: Vertigo Calcium 500 + Vit D Caplet 1 tab PO BID Famotidine [Pepcid] 20 mg PO HS metFORMIN [Glucophage] 500 mg PO BIDWM #60 tablet Rivaroxaban [Xarelto] 20 mg PO QPM Aspirin 81 mg PO DAILY Docusate [Colace] 100 mg PO BID cephALEXin [Keflex] 1,000 mg PO BID #40 capsule Ondansetron ODT [Zofran ODT] 4 mg SL Q6HR PRN #8 tab.rapdis PRN Reason: Nausea Pantoprazole Sodium [Protonix] 40 mg PO DAILY #60 tablet. Ondansetron ODT [Zofran ODT] 4 mg SL Q6HR #10 tab.rapdis Home Medications: metFORMIN [Glucophage] 500 mg PO BIDWM #60 tablet 07/17/17 [Rx] Aspirin 81 mg PO DAILY 01/25/18 [History] Rivaroxaban [Xarelto] 20 mg PO QPM 01/25/18 [History] Calcium 500 + Vit D Caplet 1 tab PO BID 04/23/18 [History] Famotidine [Pepcid] 20 mg PO HS 04/23/18 [History] Meclizine HCl [Verticalm] 25 mg PO TID PRN 04/23/18 [History] Docusate [Colace] 100 mg PO BID 06/06/18 [History] Ondansetron ODT [Zofran ODT] 4 mg SL Q6HR PRN #8 tab.rapdis 09/17/18 [Rx] cephALEXin [Keflex] 1,000 mg PO BID #40 capsule 09/17/18 [Rx] Ondansetron ODT [Zofran ODT] 4 mg SL Q6HR #10 tab.rapdis 11/12/18 [Rx] Pantoprazole Sodium [Protonix] 40 mg PO DAILY #60 tablet. 11/12/18 [Rx] Cyanocobalamin (B-12) [Vitamin B12] 1,000 mcg PO DAILY #30 tablet 12/09/18 [Rx] Magnesium Oxide 400 mg PO DAILY #7 tablet 12/09/18 [Rx] Simvastatin [Zocor] 20 mg PO QPM tablet 12/09/18 [Rx] Allergies/Adverse Reactions: Allergy/AdvReac Type Severity Reaction Status Date / Time ciprofloxacin AdvReac Vomiting Verified 07/25/18 21:19 Date of admission: 12/07/18 13:23 Primary care physician: Seble Plasencia CNP Consults: 12/07/18 17:00 Consult to Occupational Therapy [CONS] Routine Comment: Evaluate, develop and implement POC Reason for Consult: CVA eval function/balance Does patient have active BEDREST order?: No Is patient medically & hemodynamically stable?: Yes Patient assessed for mobility or mobilized this visit?: Yes Consult to Physical Therapy [CONS] Routine Comment: Evaluate, develop and implement POC Reason for Consult: CVA eval function/balance Does patient have active BEDREST order?: No Is patient medically & hemodynamically stable?: Yes Patient assessed for mobility or mobilized this visit?: Yes - Constitutional Vitals: Temp Pulse Resp BP Pulse Ox 97.4 F L 88 16 132/72 96 12/09/18 06:23 12/09/18 06:23 12/09/18 06:23 12/09/18 06:23 12/09/18 06:23 - Patient Status Disposition: Home, Self-Care Condition: Fair - Discharge Instructions Follow Up With: Seble Plasencia, LOOM TECHNICIAN [Primary Care Provider] - 1 week - Diet and Activity Activity: as per physical therapy Diet: diabetic diet
--- NOTE | 2018-12-09 14:17 | Physician Discharge Referral ---
Home Health/Hosp Referral Info Transfer to: Home Health Attending Provider: Mau Provider in Charge Post Discharge: PCP (Seble Plasencia CNP) - Diagnosis (1) CVA (cerebral vascular accident) Priority: Primary Status: Chronic (2) DM2 (diabetes mellitus, type 2) Priority: Secondary Status: Chronic (3) Hypokalemia Priority: Secondary Status: Resolved (4) Atrial fibrillation Priority: Secondary Status: Chronic (5) Dementia Priority: Secondary Status: Chronic (6) Anemia Priority: Secondary Status: Acute (7) B12 deficiency Priority: Secondary Status: Acute (8) Hypomagnesemia Priority: Secondary Status: Acute - Respiratory Orders Smoking Cessation: Smoking cessation has been advised. For more information, call the [employer] Tobacco Quit Line at 7-777-PTJD-NOW. - Diet/Nutrition Diet/Nutrition Orders: No Concentrated Sweets - Activity Activity Orders: Walker - Services Needed Following services are medically necessary services: Nursing, Home Health Aide, Physical Therapy, Occupational Therapy - Transfer Medications Prescriptions: Magnesium Oxide 400 mg PO DAILY #7 tablet Cyanocobalamin (B-12) [Vitamin B12] 1,000 mcg PO DAILY #30 tablet Home Medications: metFORMIN [Glucophage] 500 mg PO BIDWM #60 tablet 07/17/17 [Rx] Aspirin 81 mg PO DAILY 01/25/18 [History] Rivaroxaban [Xarelto] 20 mg PO QPM 01/25/18 [History] Calcium 500 + Vit D Caplet 1 tab PO BID 04/23/18 [History] Famotidine [Pepcid] 20 mg PO HS 04/23/18 [History] Meclizine HCl [Verticalm] 25 mg PO TID PRN 04/23/18 [History] Docusate [Colace] 100 mg PO BID 06/06/18 [History] Ondansetron ODT [Zofran ODT] 4 mg SL Q6HR PRN #8 tab.rapdis 09/17/18 [Rx] cephALEXin [Keflex] 1,000 mg PO BID #40 capsule 09/17/18 [Rx] Ondansetron ODT [Zofran ODT] 4 mg SL Q6HR #10 tab.rapdis 11/12/18 [Rx] Pantoprazole Sodium [Protonix] 40 mg PO DAILY #60 tablet. 11/12/18 [Rx] Cyanocobalamin (B-12) [Vitamin B12] 1,000 mcg PO DAILY #30 tablet 12/09/18 [Rx] Magnesium Oxide 400 mg PO DAILY #7 tablet 12/09/18 [Rx] Simvastatin [Zocor] 20 mg PO QPM tablet 12/09/18 [Rx] Allergies/Adverse Reactions: Allergy/AdvReac Type Severity Reaction Status Date / Time ciprofloxacin AdvReac Vomiting Verified 07/25/18 21:19 Certification: Further, I certify that my clinical findings support that this patient is homebound (i.e. absences from home require considerable and taxing effort and are for medical reasons or episcopal services or infrequently or short duration when for other reasons) because: Homebound Reason: Leaving home requires considerable and taxing effort due to condition (Multiple strokes, impaired walking ability) Attestation: My signature below is to certify that this patient is under my care and that I, or nurse practitioner, or a physician's assistant laboratory director working with me, has a [id number] encounter with this patient.
== END 2018-12-09 13:20 | disposition home or self-care (01) ==
LOC: EMEROOPIK 11:57 → INPPIK 11:57
PROVIDERS: ADMIT Internal Medicine; ATTEND Internal Medicine

== ENCOUNTER 2019-10-21 17:13 | Observation (INO) ==
[2019-10-21 17:39] LABS: Basophils % 0.4 %; Eosinophils # 0.2 K/mcL (0.0-0.6); Eosinophils % 2.5 %; Hematocrit 32.2 % (35.3-44.9); Hemoglobin 10.7 g/dL (11.5-15.4); Immature Granulocytes % 0.3 % (0-4); Lymphocytes # 2.6 K/mcL (0.6-4.6); Lymphocytes % 26.7 %; Mean Corpuscular HGB Conc 33.2 g/dL (31.6-35.5); Mean Corpuscular Hemoglobin 30.4 pg (28.0-33.3); Mean Corpuscular Volume 91.5 fL (83.0-100.0); Mean Platelet Volume 9.7 fL (9.4-12.4); Monocytes # 0.7 K/mcL (0.0-1.3); Monocytes % 6.7 %; Neutrophils # 6.1 K/mcL (1.6-8.9); Platelet Count 309 K/mcL (140-400); Red Blood Count 3.52 M/mcL (3.82-4.97); Red Cell Distribution Width 13.8 % (11.5-14.5); Segmented Neutrophils % 63.4 %; White Blood Count 9.6 K/mcL (4.3-11.1)
[2019-10-21 18:02] LABS: Alanine Aminotransferase 10 Units/L (7-52); Albumin 4.2 g/dL (3.5-5.7); Albumin/Globulin Ratio 1.4 (1.1-2.2); Alkaline Phosphatase 51 Units/L (34-104); Aspartate Amino Transferase 14 Units/L (13-39); BUN/Creatinine Ratio 23 (6-26); Bilirubin,Indirect 0.3 mg/dL (0.0-1.0); Bilirubin,Total 0.3 mg/dL (0.3-1.0); Blood Urea Nitrogen 17 mg/dL (8-23); Calcium 9.3 mg/dL (8.6-10.3); Carbon Dioxide 29 mEq/L (23-29); Chloride 99 mEq/L (98-107); Creatine Kinase 36 Units/L (30-223); Globulin 2.9 g/dL (2.4-3.5); Glucose 133 mg/dL (70-105); Osmolality,Calculated 287 (280-300); Potassium 3.8 mEq/L (3.5-5.1); Sodium 137 mEq/L (136-145); Total Protein 7.1 g/dL (6.4-8.9); Troponin I < 0.03 ng/mL (< 0.04); eGFR For African Americans > 60 (> 60); eGFR For Non-African Americans > 60 (> 60)
[2019-10-21 18:43] LABS: Activated Partial Thrombo Time 45.3 Seconds (26.0-36.0); INR 1.2; Prothrombin Time 13.4 Seconds (9.4-12.1)
[2019-10-21 18:53] LABS: Bilirubin,Urine Negative (Negative); Blood,Urine Large (Negative); Clarity,Urine Cloudy (Clear); Glucose,Urine (UA) Normal (Normal); Ketones,Urine Negative (Negative); Leukocyte Esterase,Urine Moderate (Negative); Nitrite,Urine Negative (Negative); Protein,Urine 100 mg/dL (Neg-Trace); Urobilinogen,Urine Normal (Normal)
[2019-10-21 19:05] LABS: Color,Urine Light Yellow (Yellow)
[2019-10-21 19:06] LABS: RBC,Urine 15-30 per hpf (0-3)
[2019-10-21] MEDS ORDERED: Ondansetron ODT 4 MG TAB.RAPDIS SL PRN (19:54)
[2019-10-21] MEDS ORDERED: *HR* Dextrose 50 % in Water (Vial) 50 ML VIAL IVP PRN (19:54)
[2019-10-21] MEDS ORDERED: Naloxone 0.4 MG/ML INJ IVP PRN (19:54)
[2019-10-21] MEDS ORDERED: MOM Conc 10 ML UD.LIQ PO PRN (19:54)
[2019-10-21] MEDS ORDERED: Mag Hydrox/Al Hydrox/Simeth 30 ML UDC PO PRN (19:54)
[2019-10-21] MEDS ORDERED: D5% in Water 1,000 ML IVC PRN (19:54)
[2019-10-21] MEDS ORDERED: Dextrose Gel 15 GM/37.5 ML TUBE PO PRN ×2 (19:54)
[2019-10-21] MEDS: 0.9 % Sodium Chloride 1,000 ML IVC SCH (22:05)
[2019-10-22] MEDS: 0.9 % Sodium Chloride 1,000 ML IVC SCH (05:52)
[2019-10-22 06:28] LABS: Basophils % 0.4 %; Eosinophils # 0.2 K/mcL (0.0-0.6); Hematocrit 29.2 % (35.3-44.9); Hemoglobin 9.7 g/dL (11.5-15.4); Immature Granulocytes % 0.1 % (0-4); Lymphocytes # 1.9 K/mcL (0.6-4.6); Lymphocytes % 19.9 %; Mean Corpuscular HGB Conc 33.2 g/dL (31.6-35.5); Mean Corpuscular Hemoglobin 30.1 pg (28.0-33.3); Mean Corpuscular Volume 90.7 fL (83.0-100.0); Mean Platelet Volume 9.5 fL (9.4-12.4); Monocytes # 0.7 K/mcL (0.0-1.3); Monocytes % 7.5 %; Neutrophils # 6.6 K/mcL (1.6-8.9); Platelet Count 279 K/mcL (140-400); Red Blood Count 3.22 M/mcL (3.82-4.97); Red Cell Distribution Width 13.8 % (11.5-14.5); Segmented Neutrophils % 70.1 %; White Blood Count 9.5 K/mcL (4.3-11.1)
[2019-10-22 06:46] LABS: BUN/Creatinine Ratio 20 (6-26); Blood Urea Nitrogen 14 mg/dL (8-23); Calcium 8.6 mg/dL (8.6-10.3); Carbon Dioxide 29 mEq/L (23-29); Chloride 104 mEq/L (98-107); Chol/HDL Ratio 2.4 (0-4.9); Cholesterol 110 mg/dL (< 200); Glucose 164 mg/dL (70-105); HDL Cholesterol 45 mg/dL (40-59); LDL Cholesterol,Calculated 53 mg/dL (0-99); Osmolality,Calculated 290 (280-300); Sodium 138 mEq/L (136-145); Triglycerides 58 mg/dL (< 150); eGFR For African Americans > 60 (> 60); eGFR For Non-African Americans > 60 (> 60)
[2019-10-22] MEDS ORDERED: *HR* Metformin 500 MG TABLET PO SCH (08:00)
[2019-10-22] MEDS: cefTRIAXone 1,000 MG in 0.9 % Sodium Chloride Mini Bag 100 ML IVPB SCH (09:01)
[2019-10-22] MEDS: Aspirin 81 MG TAB.CHEW PO SCH (09:02)
[2019-10-22] MEDS: Insulin LISPRO 300 UNITS/3 ML VIAL SQ SCH ×3 (09:02→18:44)
[2019-10-22 10:08] LABS: Estimated Average Glucose 163 mg/dl
[2019-10-22] MEDS: *HR* Rivaroxaban 10 MG TABLET PO SCH (18:44)
[2019-10-23 06:28] LABS: Basophils % 0.4 %; Eosinophils # 0.2 K/mcL (0.0-0.6); Eosinophils % 2.2 %; Hematocrit 29.5 % (35.3-44.9); Hemoglobin 9.8 g/dL (11.5-15.4); Immature Granulocytes % 0.2 % (0-4); Lymphocytes # 2.2 K/mcL (0.6-4.6); Lymphocytes % 24.5 %; Mean Corpuscular HGB Conc 33.2 g/dL (31.6-35.5); Mean Corpuscular Hemoglobin 30.2 pg (28.0-33.3); Mean Corpuscular Volume 90.8 fL (83.0-100.0); Monocytes # 0.7 K/mcL (0.0-1.3); Monocytes % 7.4 %; Neutrophils # 5.8 K/mcL (1.6-8.9); Platelet Count 301 K/mcL (140-400); Red Blood Count 3.25 M/mcL (3.82-4.97); Red Cell Distribution Width 13.8 % (11.5-14.5); Segmented Neutrophils % 65.3 %
[2019-10-23 06:55] LABS: BUN/Creatinine Ratio 21 (6-26); Blood Urea Nitrogen 14 mg/dL (8-23); Calcium 8.8 mg/dL (8.6-10.3); Carbon Dioxide 28 mEq/L (23-29); Chloride 102 mEq/L (98-107); Glucose 150 mg/dL (70-105); Osmolality,Calculated 289 (280-300); Sodium 138 mEq/L (136-145); eGFR For African Americans > 60 (> 60); eGFR For Non-African Americans > 60 (> 60)
[2019-10-23] MEDS: Insulin LISPRO 300 UNITS/3 ML VIAL SQ SCH ×3 (08:27→17:39)
[2019-10-23] MEDS: Aspirin 81 MG TAB.CHEW PO SCH (08:28)
[2019-10-23] MEDS: cefTRIAXone 1,000 MG in 0.9 % Sodium Chloride Mini Bag 100 ML IVPB SCH (08:29)
[2019-10-23] MEDS: *HR* Rivaroxaban 10 MG TABLET PO SCH (17:40)
[2019-10-24 07:28] LABS: Basophils # 0.1 K/mcL (0.0-0.2); Basophils % 0.7 %; Eosinophils # 0.3 K/mcL (0.0-0.6); Eosinophils % 2.3 %; Hematocrit 30.2 % (35.3-44.9); Immature Granulocytes % 0.3 % (0-4); Lymphocytes # 2.2 K/mcL (0.6-4.6); Lymphocytes % 20.5 %; Mean Corpuscular HGB Conc 33.1 g/dL (31.6-35.5); Mean Corpuscular Hemoglobin 30.3 pg (28.0-33.3); Mean Corpuscular Volume 91.5 fL (83.0-100.0); Mean Platelet Volume 10.3 fL (9.4-12.4); Monocytes # 0.8 K/mcL (0.0-1.3); Monocytes % 7.6 %; Neutrophils # 7.4 K/mcL (1.6-8.9); Platelet Count 309 K/mcL (140-400); Segmented Neutrophils % 68.6 %; White Blood Count 10.8 K/mcL (4.3-11.1)
[2019-10-24 07:44] LABS: BUN/Creatinine Ratio 19 (6-26); Blood Urea Nitrogen 11 mg/dL (8-23); Calcium 8.8 mg/dL (8.6-10.3); Carbon Dioxide 30 mEq/L (23-29); Chloride 100 mEq/L (98-107); Glucose 167 mg/dL (70-105); Osmolality,Calculated 285 (280-300); Potassium 4.1 mEq/L (3.5-5.1); Sodium 136 mEq/L (136-145); eGFR For African Americans > 60 (> 60); eGFR For Non-African Americans > 60 (> 60)
[2019-10-24] MEDS: Aspirin 81 MG TAB.CHEW PO SCH (07:49)
[2019-10-24] MEDS: cefTRIAXone 1,000 MG in 0.9 % Sodium Chloride Mini Bag 100 ML IVPB SCH (07:50)
[2019-10-24] MEDS: Insulin LISPRO 300 UNITS/3 ML VIAL SQ SCH ×3 (07:51→16:13)
[2019-10-24] MEDS ORDERED: Bisacodyl 10 MG RECTAL SUPPOSITORY RC PRN (10:55)
[2019-10-24] MEDS: *HR* Rivaroxaban 10 MG TABLET PO SCH (16:39)
[2019-10-25 07:07] VITALS: BP 147/79
[2019-10-25 07:25] LABS: Basophils # 0.1 K/mcL (0.0-0.2); Basophils % 0.5 %; Eosinophils # 0.2 K/mcL (0.0-0.6); Eosinophils % 1.7 %; Hematocrit 31.3 % (35.3-44.9); Hemoglobin 10.3 g/dL (11.5-15.4); Immature Granulocytes % 0.4 % (0-4); Lymphocytes # 1.7 K/mcL (0.6-4.6); Lymphocytes % 15.3 %; Mean Corpuscular HGB Conc 32.9 g/dL (31.6-35.5); Mean Corpuscular Hemoglobin 29.9 pg (28.0-33.3); Mean Platelet Volume 10.1 fL (9.4-12.4); Monocytes # 0.8 K/mcL (0.0-1.3); Monocytes % 7.2 %; Neutrophils # 8.3 K/mcL (1.6-8.9); Platelet Count 312 K/mcL (140-400); Red Blood Count 3.44 M/mcL (3.82-4.97); Red Cell Distribution Width 13.7 % (11.5-14.5); Segmented Neutrophils % 74.9 %; White Blood Count 11.1 K/mcL (4.3-11.1)
[2019-10-25 07:42] LABS: BUN/Creatinine Ratio 21 (6-26); Blood Urea Nitrogen 14 mg/dL (8-23); Calcium 8.9 mg/dL (8.6-10.3); Carbon Dioxide 29 mEq/L (23-29); Chloride 100 mEq/L (98-107); Glucose 202 mg/dL (70-105); Osmolality,Calculated 290 (280-300); Sodium 137 mEq/L (136-145); eGFR For African Americans > 60 (> 60); eGFR For Non-African Americans > 60 (> 60)
[2019-10-25] MEDS: Aspirin 81 MG TAB.CHEW PO SCH (08:40)
[2019-10-25] MEDS: Insulin LISPRO 300 UNITS/3 ML VIAL SQ SCH ×2 (08:42→11:23)
== END 2019-10-25 12:32 | disposition other institution (70) ==
LOC: INPPIK 17:13 → EMEROOPIK 17:13 → INPPIK 19:40
PROVIDERS: ADMIT Family Medicine; ATTEND Family Medicine

== ENCOUNTER 2019-10-25 10:18 | Inpatient (IN) ==
[2019-10-25] MEDS: *HR* Rivaroxaban 10 MG TABLET PO SCH (16:09)
[2019-10-25] MEDS: *HR* Metformin 500 MG TABLET PO SCH (16:10)
[2019-10-26 08:01] LABS: BUN/Creatinine Ratio 28 (6-26); Blood Urea Nitrogen 17 mg/dL (8-23); Calcium 8.9 mg/dL (8.6-10.3); Carbon Dioxide 27 mEq/L (23-29); Chloride 99 mEq/L (98-107); Glucose 176 mg/dL (70-105); Osmolality,Calculated 286 (280-300); Potassium 4.1 mEq/L (3.5-5.1); Sodium 135 mEq/L (136-145); eGFR For African Americans > 60 (> 60); eGFR For Non-African Americans > 60 (> 60)
[2019-10-26 08:24] LABS: Basophils % 0.4 %; Eosinophils # 0.2 K/mcL (0.0-0.6); Eosinophils % 2.3 %; Hematocrit 32.3 % (35.3-44.9); Hemoglobin 10.1 g/dL (11.5-15.4); Immature Granulocytes % 0.2 % (0-4); Lymphocytes # 1.8 K/mcL (0.6-4.6); Lymphocytes % 17.5 %; Mean Corpuscular HGB Conc 31.3 g/dL (31.6-35.5); Mean Corpuscular Volume 95.8 fL (83.0-100.0); Mean Platelet Volume 10.7 fL (9.4-12.4); Monocytes # 0.8 K/mcL (0.0-1.3); Monocytes % 7.6 %; Neutrophils # 7.2 K/mcL (1.6-8.9); Platelet Count 314 K/mcL (140-400); Red Blood Count 3.37 M/mcL (3.82-4.97); Red Cell Distribution Width 13.9 % (11.5-14.5)
[2019-10-26] MEDS: *HR* Metformin 500 MG TABLET PO SCH ×2 (08:56→16:59)
[2019-10-26] MEDS: Aspirin 81 MG TAB.CHEW PO SCH (08:56)
[2019-10-26 10:49] LABS: Prealbumin 17.8 mg/dL (17.0-34.0)
[2019-10-26 11:12] LABS: Folate 18.1 ng/mL (3.0-16.0)
[2019-10-26] MEDS: MOM Conc 10 ML UD.LIQ PO PRN (11:27)
[2019-10-26 13:25] LABS: % Iron Saturation 12 % (15-50); Iron 37 mcg/dL (50-170); Transferrin 223 mg/dL (203-362)
[2019-10-26] MEDS: *HR* Rivaroxaban 10 MG TABLET PO SCH (16:59)
[2019-10-27] MEDS: *HR* Metformin 500 MG TABLET PO SCH ×2 (08:58→17:09)
[2019-10-27] MEDS: MOM Conc 10 ML UD.LIQ PO PRN (08:58)
[2019-10-27] MEDS: Aspirin 81 MG TAB.CHEW PO SCH (08:58)
[2019-10-27] MEDS: Lactulose Oral Soln 20 GM/30 ML UDC PO PRN (09:32)
[2019-10-27] MEDS: polyethylene glycoL 3350 17 GM POWD.PACK PO SCH (09:32)
[2019-10-27] MEDS: Sennosides/Docusate Sodium TABLET PO SCH ×2 (09:33→20:03)
[2019-10-27] MEDS: Cyanocobalamin (B-12) 1,000 MCG/ML VIAL SQ SCH (15:13)
[2019-10-27] MEDS: *HR* Rivaroxaban 10 MG TABLET PO SCH (17:09)
[2019-10-28] MEDS: polyethylene glycoL 3350 17 GM POWD.PACK PO SCH (07:53)
[2019-10-28] MEDS: Cyanocobalamin (B-12) 1,000 MCG/ML VIAL SQ SCH (07:53)
[2019-10-28] MEDS: Sennosides/Docusate Sodium TABLET PO SCH ×2 (07:53→20:17)
[2019-10-28] MEDS: Aspirin 81 MG TAB.CHEW PO SCH (07:53)
[2019-10-28] MEDS: *HR* Metformin 500 MG TABLET PO SCH ×2 (07:53→16:49)
[2019-10-28] MEDS: Lactulose Oral Soln 20 GM/30 ML UDC PO PRN (11:46)
[2019-10-28] MEDS ORDERED: Bisacodyl 10 MG RECTAL SUPPOSITORY RC PRN (11:50)
[2019-10-28] MEDS: *HR* Rivaroxaban 10 MG TABLET PO SCH (16:50)
[2019-10-29] MEDS: Cyanocobalamin (B-12) 1,000 MCG/ML VIAL SQ SCH (08:08)
[2019-10-29] MEDS: Sennosides/Docusate Sodium TABLET PO SCH ×2 (08:08→19:50)
[2019-10-29] MEDS: polyethylene glycoL 3350 17 GM POWD.PACK PO SCH (08:08)
[2019-10-29] MEDS: Aspirin 81 MG TAB.CHEW PO SCH (08:08)
[2019-10-29] MEDS: *HR* Metformin 500 MG TABLET PO SCH ×2 (08:08→16:47)
[2019-10-29] MEDS: *HR* Rivaroxaban 10 MG TABLET PO SCH (16:47)
[2019-10-30] MEDS: *HR* Metformin 500 MG TABLET PO SCH ×2 (08:39→17:39)
[2019-10-30] MEDS: Aspirin 81 MG TAB.CHEW PO SCH (08:40)
[2019-10-30] MEDS: polyethylene glycoL 3350 17 GM POWD.PACK PO SCH (08:41)
[2019-10-30] MEDS: Sennosides/Docusate Sodium TABLET PO SCH ×2 (08:41→19:44)
[2019-10-30] MEDS: Cyanocobalamin (B-12) 1,000 MCG/ML VIAL SQ SCH (08:41)
[2019-10-30] MEDS: *HR* Rivaroxaban 10 MG TABLET PO SCH (17:39)
[2019-10-31] MEDS: *HR* Metformin 500 MG TABLET PO SCH ×2 (09:13→17:47)
[2019-10-31] MEDS: Sennosides/Docusate Sodium TABLET PO SCH ×2 (09:13→20:33)
[2019-10-31] MEDS: Cyanocobalamin (B-12) 1,000 MCG/ML VIAL SQ SCH (09:14)
[2019-10-31] MEDS: polyethylene glycoL 3350 17 GM POWD.PACK PO SCH (09:15)
[2019-10-31] MEDS: Aspirin 81 MG TAB.CHEW PO SCH (09:19)
[2019-10-31] MEDS: *HR* Rivaroxaban 10 MG TABLET PO SCH (17:49)
[2019-11-01] MEDS: Sennosides/Docusate Sodium TABLET PO SCH (08:24)
[2019-11-01] MEDS: polyethylene glycoL 3350 17 GM POWD.PACK PO SCH (08:24)
[2019-11-01] MEDS: *HR* Metformin 500 MG TABLET PO SCH ×2 (08:24→16:16)
[2019-11-01] MEDS: Cyanocobalamin (B-12) 1,000 MCG/ML VIAL SQ SCH (08:25)
[2019-11-01] MEDS: Aspirin 81 MG TAB.CHEW PO SCH (08:25)
[2019-11-01] MEDS ORDERED: Sennosides/Docusate Sodium TABLET PO PRN (12:55)
[2019-11-01] MEDS ORDERED: polyethylene glycoL 3350 17 GM POWD.PACK PO PRN (13:41)
[2019-11-01] MEDS: *HR* Rivaroxaban 10 MG TABLET PO SCH (16:16)
[2019-11-02] MEDS: *HR* Metformin 500 MG TABLET PO SCH ×2 (08:11→16:29)
[2019-11-02] MEDS: Aspirin 81 MG TAB.CHEW PO SCH (08:11)
[2019-11-02] MEDS: Cyanocobalamin (B-12) 1,000 MCG/ML VIAL SQ SCH (08:11)
[2019-11-02] MEDS: *HR* Rivaroxaban 10 MG TABLET PO SCH (16:29)
[2019-11-03] MEDS: Cyanocobalamin (B-12) 1,000 MCG/ML VIAL SQ SCH (08:17)
[2019-11-03] MEDS: Aspirin 81 MG TAB.CHEW PO SCH (08:17)
[2019-11-03] MEDS: *HR* Metformin 500 MG TABLET PO SCH ×2 (08:17→16:23)
[2019-11-03] MEDS: *HR* Rivaroxaban 10 MG TABLET PO SCH (16:23)
[2019-11-04] MEDS: *HR* Metformin 500 MG TABLET PO SCH ×2 (08:29→16:24)
[2019-11-04] MEDS: Aspirin 81 MG TAB.CHEW PO SCH (08:29)
[2019-11-04 08:59] LABS: Basophils # 0.1 K/mcL (0.0-0.2); Basophils % 0.6 %; Eosinophils # 0.1 K/mcL (0.0-0.6); Eosinophils % 1.2 %; Hematocrit 32.3 % (35.3-44.9); Hemoglobin 10.6 g/dL (11.5-15.4); Immature Granulocytes % 0.5 % (0-4); Lymphocytes # 1.8 K/mcL (0.6-4.6); Mean Corpuscular HGB Conc 32.8 g/dL (31.6-35.5); Mean Corpuscular Hemoglobin 29.9 pg (28.0-33.3); Mean Corpuscular Volume 91.2 fL (83.0-100.0); Monocytes # 0.7 K/mcL (0.0-1.3); Monocytes % 6.4 %; Neutrophils # 7.7 K/mcL (1.6-8.9); Platelet Count 354 K/mcL (140-400); Red Blood Count 3.54 M/mcL (3.82-4.97); Red Cell Distribution Width 13.4 % (11.5-14.5); Segmented Neutrophils % 74.3 %; White Blood Count 10.4 K/mcL (4.3-11.1)
[2019-11-04 09:18] LABS: BUN/Creatinine Ratio 23 (6-26); Blood Urea Nitrogen 15 mg/dL (8-23); Calcium 9.1 mg/dL (8.6-10.3); Carbon Dioxide 27 mEq/L (23-29); Chloride 99 mEq/L (98-107); Glucose 143 mg/dL (70-105); Osmolality,Calculated 285 (280-300); Potassium 4.3 mEq/L (3.5-5.1); Sodium 136 mEq/L (136-145); eGFR For African Americans > 60 (> 60); eGFR For Non-African Americans > 60 (> 60)
[2019-11-04] MEDS: Cyanocobalamin (B-12) 1,000 MCG TABLET PO SCH (14:37)
[2019-11-04] MEDS: *HR* Rivaroxaban 10 MG TABLET PO SCH (16:24)
[2019-11-05] MEDS: *HR* Metformin 500 MG TABLET PO SCH ×2 (08:32→16:28)
[2019-11-05] MEDS: Aspirin 81 MG TAB.CHEW PO SCH (08:32)
[2019-11-05] MEDS: Cyanocobalamin (B-12) 1,000 MCG TABLET PO SCH (08:33)
[2019-11-05] MEDS ORDERED: Acetaminophen 325 MG TABLET PO ONE (15:14)
[2019-11-05] MEDS: *HR* Rivaroxaban 10 MG TABLET PO SCH (16:29)
[2019-11-06] MEDS: *HR* Metformin 500 MG TABLET PO SCH ×2 (10:19→16:57)
[2019-11-06] MEDS: Aspirin 81 MG TAB.CHEW PO SCH (10:19)
[2019-11-06] MEDS: Cyanocobalamin (B-12) 1,000 MCG TABLET PO SCH (10:19)
[2019-11-06] MEDS: *HR* Rivaroxaban 10 MG TABLET PO SCH (16:56)
[2019-11-07] MEDS: Cyanocobalamin (B-12) 1,000 MCG TABLET PO SCH (07:42)
[2019-11-07] MEDS: *HR* Metformin 500 MG TABLET PO SCH ×2 (07:42→17:12)
[2019-11-07] MEDS: Aspirin 81 MG TAB.CHEW PO SCH (07:42)
[2019-11-07] MEDS: Acetaminophen 325 MG TABLET PO PRN (13:47)
[2019-11-07] MEDS: *HR* Rivaroxaban 10 MG TABLET PO SCH (17:12)
[2019-11-07] MEDS: Melatonin 3 MG TABLET PO SCH (20:55)
[2019-11-08] MEDS: Aspirin 81 MG TAB.CHEW PO SCH (07:36)
[2019-11-08] MEDS: *HR* Metformin 500 MG TABLET PO SCH ×2 (07:36→16:26)
[2019-11-08] MEDS: Cyanocobalamin (B-12) 1,000 MCG TABLET PO SCH (07:36)
[2019-11-08] MEDS: Acetaminophen 325 MG TABLET PO PRN (09:55)
[2019-11-08] MEDS ORDERED: predniSONE 20 MG TABLET PO ONE (13:11)
[2019-11-08 15:15] LABS: Basophils # 0.1 K/mcL (0.0-0.2); Basophils % 0.5 %; Eosinophils # 0.1 K/mcL (0.0-0.6); Eosinophils % 0.9 %; Hematocrit 32.4 % (35.3-44.9); Hemoglobin 10.5 g/dL (11.5-15.4); Immature Granulocytes % 0.3 % (0-4); Lymphocytes # 1.7 K/mcL (0.6-4.6); Lymphocytes % 14.1 %; Mean Corpuscular HGB Conc 32.4 g/dL (31.6-35.5); Mean Corpuscular Hemoglobin 29.8 pg (28.0-33.3); Mean Platelet Volume 10.1 fL (9.4-12.4); Monocytes # 0.6 K/mcL (0.0-1.3); Platelet Count 390 K/mcL (140-400); Red Blood Count 3.52 M/mcL (3.82-4.97); Red Cell Distribution Width 13.8 % (11.5-14.5); Segmented Neutrophils % 79.2 %; White Blood Count 11.8 K/mcL (4.3-11.1)
[2019-11-08 15:21] LABS: Neutrophils # 9.4 K/mcL (1.6-8.9)
[2019-11-08 15:26] LABS: BUN/Creatinine Ratio 24 (6-26); Blood Urea Nitrogen 21 mg/dL (8-23); Calcium 9.2 mg/dL (8.6-10.3); Carbon Dioxide 26 mEq/L (23-29); Chloride 95 mEq/L (98-107); Glucose 209 mg/dL (70-105); Osmolality,Calculated 285 (280-300); Potassium 3.9 mEq/L (3.5-5.1); Sodium 133 mEq/L (136-145); eGFR For African Americans > 60 (> 60); eGFR For Non-African Americans > 60 (> 60)
[2019-11-08] MEDS: *HR* Rivaroxaban 10 MG TABLET PO SCH (16:26)
[2019-11-08] MEDS: Melatonin 3 MG TABLET PO SCH (19:48)
[2019-11-09 06:32] VITALS: BP 131/74
[2019-11-09] MEDS: *HR* Metformin 500 MG TABLET PO SCH (07:42)
[2019-11-09] MEDS: Cyanocobalamin (B-12) 1,000 MCG TABLET PO SCH (07:42)
[2019-11-09] MEDS: Aspirin 81 MG TAB.CHEW PO SCH (07:42)
== END 2019-11-09 12:25 | disposition home health service (06) | DRG 945 ==
LOC: INPPIK 12:54
PROVIDERS: ADMIT Family Medicine; ATTEND Family Medicine

== ENCOUNTER 2021-03-02 04:54 | Inpatient (IN) ==
[2021-03-02] MEDS ORDERED: *HR* OxyCODONE/APAP 5/325 TABLET PO ONE (05:10)
[2021-03-02 07:11] LABS: Basophils % 0.2 %; Eosinophils % 0.2 %; Hematocrit 30.7 % (35.3-44.9); Immature Granulocytes % 0.4 % (0-4); Lymphocytes # 0.9 K/mcL (0.6-4.6); Lymphocytes % 5.4 %; Mean Corpuscular HGB Conc 32.6 g/dL (31.6-35.5); Mean Corpuscular Hemoglobin 29.2 pg (28.0-33.3); Mean Corpuscular Volume 89.8 fL (83.0-100.0); Mean Platelet Volume 9.8 fL (9.4-12.4); Monocytes # 0.7 K/mcL (0.0-1.3); Monocytes % 4.4 %; Neutrophils # 14.5 K/mcL (1.6-8.9); Platelet Count 335 K/mcL (140-400); Red Blood Count 3.42 M/mcL (3.82-4.97); Red Cell Distribution Width 14.4 % (11.5-14.5); Segmented Neutrophils % 89.4 %; White Blood Count 16.2 K/mcL (4.3-11.1)
[2021-03-02 07:29] LABS: BUN/Creatinine Ratio 27 (6-26); Blood Urea Nitrogen 26 mg/dL (8-23); Calcium 9.3 mg/dL (8.6-10.3); Carbon Dioxide 29 mEq/L (23-29); Chloride 99 mEq/L (98-107); Glucose 149 mg/dL (70-105); Osmolality,Calculated 292 (280-300); Potassium 4.4 mEq/L (3.5-5.1); Sodium 137 mEq/L (136-145); eGFR For African Americans > 60 (> 60); eGFR For Non-African Americans 57 (> 60)
[2021-03-02] MEDS ORDERED: Ondansetron 4 MG/2 ML VIAL IVP PRN (08:04)
[2021-03-02] MEDS ORDERED: Naloxone 0.4 MG/ML INJ IVP PRN (08:04)
[2021-03-02] MEDS ORDERED: *HR* Dextrose 50 % in Water (Syg) 50 ML SYRINGE IVP PRN (08:47)
[2021-03-02] MEDS ORDERED: Dextrose Gel 15 GM/37.5 ML TUBE PO PRN ×2 (08:47)
[2021-03-02] MEDS ORDERED: D5% in Water 1,000 ML IVC PRN (08:47)
[2021-03-02] MEDS: 0.9 % Sodium Chloride 1,000 ML IVC SCH ×2 (08:58→21:32)
[2021-03-02] MEDS: Acetaminophen 325 MG TABLET PO PRN (09:35)
[2021-03-02] MEDS: Aspirin 81 MG TAB.CHEW PO SCH (10:30)
[2021-03-02] MEDS: OXcarbazepine 150 MG TABLET PO SCH ×2 (10:30→21:23)
[2021-03-02] MEDS: Sulfamethoxazole/Trimeth DS 1 EACH TABLET PO SCH ×2 (10:31→21:23)
[2021-03-02] MEDS: Insulin LISPRO 300 UNITS/3 ML VIAL SUBQ SCH ×3 (12:31→21:20)
[2021-03-02] MEDS: *HR* HYDROcodone/Acet 5/325 mg TABLET PO PRN ×2 (12:38→21:23)
[2021-03-02 17:21] LABS: Bilirubin,Urine Negative (Negative); Blood,Urine Moderate (Negative); Clarity,Urine Clear (Clear); Color,Urine Yellow (Yellow); Glucose,Urine (UA) Normal (Normal); Ketones,Urine 15 mg/dL (Negative); Leukocyte Esterase,Urine Trace (Negative); Nitrite,Urine Negative (Negative); Protein,Urine 30 mg/dL (Neg-Trace); Specific Gravity,Urine >= 1.030 (1.010-1.025); Urobilinogen,Urine Normal (Normal)
[2021-03-02 17:30] LABS: Bacteria,Urine Moderate per hpf (None-Few); Squamous Epithelial Cell,Urine Few per hpf (None-Few)
[2021-03-02] MEDS: *HR* Metformin 500 MG TABLET PO SCH (17:48)
[2021-03-02] MEDS: *HR* Heparin 5,000 UNIT/ML VIAL SQ SCH (21:23)
[2021-03-03] MEDS: *HR* Heparin 5,000 UNIT/ML VIAL SQ SCH ×3 (05:39→21:47)
[2021-03-03 07:19] LABS: Hematocrit 29.7 % (35.3-44.9); Hemoglobin 9.6 g/dL (11.5-15.4); Mean Corpuscular HGB Conc 32.3 g/dL (31.6-35.5); Mean Corpuscular Hemoglobin 29.2 pg (28.0-33.3); Mean Corpuscular Volume 90.3 fL (83.0-100.0); Platelet Count 328 K/mcL (140-400); Red Blood Count 3.29 M/mcL (3.82-4.97); Red Cell Distribution Width 14.4 % (11.5-14.5); White Blood Count 12.6 K/mcL (4.3-11.1)
[2021-03-03 07:46] LABS: BUN/Creatinine Ratio 25 (6-26); Blood Urea Nitrogen 15 mg/dL (8-23); Calcium 8.8 mg/dL (8.6-10.3); Carbon Dioxide 27 mEq/L (23-29); Chloride 97 mEq/L (98-107); Glucose 121 mg/dL (70-105); Osmolality,Calculated 278 (280-300); Potassium 4.7 mEq/L (3.5-5.1); Sodium 133 mEq/L (136-145); eGFR For African Americans > 60 (> 60); eGFR For Non-African Americans > 60 (> 60)
[2021-03-03] MEDS: Insulin LISPRO 300 UNITS/3 ML VIAL SUBQ SCH ×4 (07:53→21:47)
[2021-03-03] MEDS: *HR* Metformin 500 MG TABLET PO SCH ×2 (09:04→17:02)
[2021-03-03] MEDS: Sulfamethoxazole/Trimeth DS 1 EACH TABLET PO SCH ×2 (09:04→21:46)
[2021-03-03] MEDS: Aspirin 81 MG TAB.CHEW PO SCH (09:04)
[2021-03-03] MEDS: OXcarbazepine 150 MG TABLET PO SCH ×2 (09:04→21:46)
[2021-03-04] MEDS: *HR* Heparin 5,000 UNIT/ML VIAL SQ SCH ×2 (06:17→14:06)
[2021-03-04 06:55] LABS: Hematocrit 28.7 % (35.3-44.9); Hemoglobin 9.5 g/dL (11.5-15.4); Mean Corpuscular HGB Conc 33.1 g/dL (31.6-35.5); Mean Corpuscular Hemoglobin 29.4 pg (28.0-33.3); Mean Corpuscular Volume 88.9 fL (83.0-100.0); Mean Platelet Volume 10.1 fL (9.4-12.4); Platelet Count 320 K/mcL (140-400); Red Blood Count 3.23 M/mcL (3.82-4.97); Red Cell Distribution Width 14.2 % (11.5-14.5); White Blood Count 9.8 K/mcL (4.3-11.1)
[2021-03-04 07:18] LABS: BUN/Creatinine Ratio 14 (6-26); Blood Urea Nitrogen 10 mg/dL (8-23); Calcium 8.7 mg/dL (8.6-10.3); Carbon Dioxide 27 mEq/L (23-29); Chloride 95 mEq/L (98-107); Glucose 110 mg/dL (70-105); Osmolality,Calculated 274 (280-300); Potassium 4.2 mEq/L (3.5-5.1); Sodium 132 mEq/L (136-145); eGFR For African Americans > 60 (> 60); eGFR For Non-African Americans > 60 (> 60)
[2021-03-04] MEDS: Insulin LISPRO 300 UNITS/3 ML VIAL SUBQ SCH ×4 (07:47→19:50)
[2021-03-04] MEDS: Sulfamethoxazole/Trimeth DS 1 EACH TABLET PO SCH ×2 (09:23→19:51)
[2021-03-04] MEDS: OXcarbazepine 150 MG TABLET PO SCH ×2 (09:23→19:51)
[2021-03-04] MEDS: *HR* Metformin 500 MG TABLET PO SCH ×2 (09:23→17:10)
[2021-03-04] MEDS: Aspirin 81 MG TAB.CHEW PO SCH (09:23)
[2021-03-04] MEDS: *HR* Rivaroxaban 10 MG TABLET PO SCH (17:11)
[2021-03-05] MEDS: Insulin LISPRO 300 UNITS/3 ML VIAL SUBQ SCH ×4 (07:35→20:05)
[2021-03-05] MEDS: Aspirin 81 MG TAB.CHEW PO SCH (09:20)
[2021-03-05] MEDS: *HR* Metformin 500 MG TABLET PO SCH ×2 (09:21→16:45)
[2021-03-05] MEDS: Sulfamethoxazole/Trimeth DS 1 EACH TABLET PO SCH ×2 (09:21→20:02)
[2021-03-05] MEDS: OXcarbazepine 150 MG TABLET PO SCH ×2 (09:21→20:02)
[2021-03-05] MEDS: *HR* Rivaroxaban 10 MG TABLET PO SCH (16:45)
[2021-03-06] MEDS: Insulin LISPRO 300 UNITS/3 ML VIAL SUBQ SCH ×4 (08:07→21:50)
[2021-03-06] MEDS: OXcarbazepine 150 MG TABLET PO SCH ×3 (08:41→23:07)
[2021-03-06] MEDS: *HR* Metformin 500 MG TABLET PO SCH ×2 (08:41→17:00)
[2021-03-06] MEDS: Sulfamethoxazole/Trimeth DS 1 EACH TABLET PO SCH ×3 (08:41→23:07)
[2021-03-06] MEDS: Aspirin 81 MG TAB.CHEW PO SCH (08:41)
[2021-03-06] MEDS: Acetaminophen 325 MG TABLET PO PRN (08:58)
[2021-03-06] MEDS: Sennosides/Docusate Sodium TABLET PO SCH ×3 (12:10→23:07)
[2021-03-06] MEDS: *HR* Rivaroxaban 10 MG TABLET PO SCH (17:01)
[2021-03-07] MEDS: Insulin LISPRO 300 UNITS/3 ML VIAL SUBQ SCH ×3 (07:20→16:26)
[2021-03-07 07:21] VITALS: BP 120/67; PULSE 84; RESP 20; TEMP 99; O2SAT 92
[2021-03-07 07:29] LABS: Basophils # 0.1 K/mcL (0.0-0.2); Basophils % 0.5 %; Eosinophils # 0.1 K/mcL (0.0-0.6); Eosinophils % 1.5 %; Hematocrit 28.4 % (35.3-44.9); Hemoglobin 9.2 g/dL (11.5-15.4); Immature Granulocytes % 0.3 % (0-4); Lymphocytes % 10.8 %; Mean Corpuscular HGB Conc 32.4 g/dL (31.6-35.5); Mean Corpuscular Hemoglobin 28.8 pg (28.0-33.3); Mean Platelet Volume 10.2 fL (9.4-12.4); Monocytes # 0.9 K/mcL (0.0-1.3); Monocytes % 9.2 %; Neutrophils # 7.5 K/mcL (1.6-8.9); Platelet Count 370 K/mcL (140-400); Red Blood Count 3.19 M/mcL (3.82-4.97); Red Cell Distribution Width 14.4 % (11.5-14.5); Segmented Neutrophils % 77.7 %; White Blood Count 9.6 K/mcL (4.3-11.1)
[2021-03-07 07:37] LABS: BUN/Creatinine Ratio 18 (6-26); Blood Urea Nitrogen 15 mg/dL (8-23); Calcium 9.1 mg/dL (8.6-10.3); Carbon Dioxide 24 mEq/L (23-29); Chloride 97 mEq/L (98-107); Glucose 97 mg/dL (70-105); Osmolality,Calculated 275 (280-300); Potassium 4.2 mEq/L (3.5-5.1); Sodium 132 mEq/L (136-145); eGFR For African Americans > 60 (> 60); eGFR For Non-African Americans > 60 (> 60)
[2021-03-07] MEDS: Sulfamethoxazole/Trimeth DS 1 EACH TABLET PO SCH (08:31)
[2021-03-07] MEDS: Aspirin 81 MG TAB.CHEW PO SCH (08:31)
[2021-03-07] MEDS: Sennosides/Docusate Sodium TABLET PO SCH (08:31)
[2021-03-07] MEDS: *HR* Metformin 500 MG TABLET PO SCH ×2 (08:31→16:29)
[2021-03-07] MEDS: OXcarbazepine 150 MG TABLET PO SCH (08:31)
[2021-03-07] MEDS: *HR* Rivaroxaban 10 MG TABLET PO SCH (16:29)
[2021-03-07] MEDS ORDERED: QUEtiapine Fumarate 25 MG TABLET PO SCH (21:00)
== END 2021-03-07 16:37 | disposition other institution (70) | DRG 552 ==
LOC: EMEROOPIK 04:54 → INPPIK 04:54
PROVIDERS: ADMIT Nurse Practitioner Family; ATTEND Nurse Practitioner Family

== ENCOUNTER 2021-03-07 15:59 | Inpatient (IN) ==
[2021-03-07] MEDS ORDERED: D5% in Water 1,000 ML IVC PRN (17:51)
[2021-03-07] MEDS ORDERED: *HR* Dextrose 50 % in Water (Syg) 50 ML SYRINGE IVP PRN (17:51)
[2021-03-07] MEDS ORDERED: Dextrose Gel 15 GM/37.5 ML TUBE PO PRN ×2 (17:51)
[2021-03-07] MEDS ORDERED: Ondansetron ODT 4 MG TAB.RAPDIS SL PRN (18:00)
[2021-03-07] MEDS: Insulin LISPRO 300 UNITS/3 ML VIAL SUBQ SCH (19:52)
[2021-03-07] MEDS: QUEtiapine Fumarate 25 MG TABLET PO SCH (20:04)
[2021-03-07] MEDS: Sennosides/Docusate Sodium TABLET PO SCH (20:04)
[2021-03-07] MEDS: OXcarbazepine 150 MG TABLET PO SCH (20:04)
[2021-03-08 08:16] LABS: Basophils # 0.1 K/mcL (0.0-0.2); Basophils % 0.6 %; Eosinophils # 0.2 K/mcL (0.0-0.6); Eosinophils % 2.1 %; Hematocrit 28.5 % (35.3-44.9); Hemoglobin 9.4 g/dL (11.5-15.4); Immature Granulocytes % 0.5 % (0-4); Lymphocytes # 1.1 K/mcL (0.6-4.6); Lymphocytes % 13.4 %; Mean Corpuscular Hemoglobin 29.4 pg (28.0-33.3); Mean Corpuscular Volume 89.1 fL (83.0-100.0); Mean Platelet Volume 9.6 fL (9.4-12.4); Monocytes # 0.9 K/mcL (0.0-1.3); Monocytes % 10.2 %; Neutrophils # 6.3 K/mcL (1.6-8.9); Platelet Count 353 K/mcL (140-400); Red Cell Distribution Width 14.6 % (11.5-14.5); Segmented Neutrophils % 73.2 %; White Blood Count 8.5 K/mcL (4.3-11.1)
[2021-03-08 08:35] LABS: BUN/Creatinine Ratio 23 (6-26); Blood Urea Nitrogen 19 mg/dL (8-23); Calcium 9.3 mg/dL (8.6-10.3); Carbon Dioxide 23 mEq/L (23-29); Chloride 97 mEq/L (98-107); Glucose 106 mg/dL (70-105); Osmolality,Calculated 275 (280-300); Potassium 4.2 mEq/L (3.5-5.1); Sodium 131 mEq/L (136-145); eGFR For African Americans > 60 (> 60); eGFR For Non-African Americans > 60 (> 60)
[2021-03-08] MEDS: Sennosides/Docusate Sodium TABLET PO SCH ×2 (09:06→20:46)
[2021-03-08] MEDS: Aspirin 81 MG TAB.CHEW PO SCH (09:06)
[2021-03-08] MEDS: OXcarbazepine 150 MG TABLET PO SCH ×2 (09:06→20:46)
[2021-03-08] MEDS: *HR* Metformin 500 MG TABLET PO SCH ×2 (09:06→16:25)
[2021-03-08] MEDS: Insulin LISPRO 300 UNITS/3 ML VIAL SUBQ SCH ×4 (09:08→20:31)
[2021-03-08] MEDS: *HR* HYDROcodone/Acet 5/325 mg TABLET PO PRN (13:05)
[2021-03-08] MEDS: *HR* Rivaroxaban 15 MG TABLET PO SCH (16:25)
[2021-03-08] MEDS ORDERED: *HR* Rivaroxaban 10 MG TABLET PO SCH (17:00)
[2021-03-08] MEDS: QUEtiapine Fumarate 25 MG TABLET PO SCH (20:46)
[2021-03-09] MEDS: Sennosides/Docusate Sodium TABLET PO SCH ×2 (08:24→20:49)
[2021-03-09] MEDS: *HR* Metformin 500 MG TABLET PO SCH ×2 (08:24→16:58)
[2021-03-09] MEDS: Aspirin 81 MG TAB.CHEW PO SCH (08:24)
[2021-03-09] MEDS: OXcarbazepine 150 MG TABLET PO SCH ×2 (08:24→20:49)
[2021-03-09] MEDS: Insulin LISPRO 300 UNITS/3 ML VIAL SUBQ SCH ×4 (08:24→20:36)
[2021-03-09] MEDS: *HR* Rivaroxaban 15 MG TABLET PO SCH (16:58)
[2021-03-09] MEDS: QUEtiapine Fumarate 25 MG TABLET PO SCH (20:49)
[2021-03-10] MEDS: Insulin LISPRO 300 UNITS/3 ML VIAL SUBQ SCH ×4 (08:50→21:12)
[2021-03-10] MEDS: Sennosides/Docusate Sodium TABLET PO SCH ×2 (08:57→21:08)
[2021-03-10] MEDS: *HR* Metformin 500 MG TABLET PO SCH ×2 (08:57→16:47)
[2021-03-10] MEDS: *HR* HYDROcodone/Acet 5/325 mg TABLET PO PRN ×2 (08:58→16:46)
[2021-03-10] MEDS: OXcarbazepine 150 MG TABLET PO SCH ×2 (08:58→21:08)
[2021-03-10] MEDS: Aspirin 81 MG TAB.CHEW PO SCH (08:58)
[2021-03-10] MEDS: *HR* Rivaroxaban 15 MG TABLET PO SCH (16:47)
[2021-03-10] MEDS: QUEtiapine Fumarate 25 MG TABLET PO SCH (21:08)
[2021-03-11] MEDS: Insulin LISPRO 300 UNITS/3 ML VIAL SUBQ SCH ×4 (08:53→20:19)
[2021-03-11] MEDS: *HR* HYDROcodone/Acet 5/325 mg TABLET PO PRN ×2 (08:59→20:20)
[2021-03-11] MEDS: Sennosides/Docusate Sodium TABLET PO SCH ×2 (08:59→20:49)
[2021-03-11] MEDS: *HR* Metformin 500 MG TABLET PO SCH ×2 (08:59→17:45)
[2021-03-11] MEDS: Aspirin 81 MG TAB.CHEW PO SCH (08:59)
[2021-03-11] MEDS: OXcarbazepine 150 MG TABLET PO SCH ×2 (08:59→20:20)
[2021-03-11] MEDS: *HR* Rivaroxaban 15 MG TABLET PO SCH (17:45)
[2021-03-11] MEDS: QUEtiapine Fumarate 25 MG TABLET PO SCH (20:20)
[2021-03-12 07:24] LABS: Basophils # 0.1 K/mcL (0.0-0.2); Basophils % 0.4 %; Eosinophils # 0.1 K/mcL (0.0-0.6); Hematocrit 28.3 % (35.3-44.9); Hemoglobin 9.1 g/dL (11.5-15.4); Immature Granulocytes % 0.4 % (0-4); Lymphocytes # 2.2 K/mcL (0.6-4.6); Lymphocytes % 15.6 %; Mean Corpuscular HGB Conc 32.2 g/dL (31.6-35.5); Mean Corpuscular Hemoglobin 28.8 pg (28.0-33.3); Mean Corpuscular Volume 89.6 fL (83.0-100.0); Mean Platelet Volume 8.8 fL (9.4-12.4); Monocytes # 0.9 K/mcL (0.0-1.3); Monocytes % 6.4 %; Neutrophils # 10.7 K/mcL (1.6-8.9); Platelet Count 464 K/mcL (140-400); Red Blood Count 3.16 M/mcL (3.82-4.97); Red Cell Distribution Width 14.6 % (11.5-14.5); Segmented Neutrophils % 76.2 %
[2021-03-12 07:47] LABS: BUN/Creatinine Ratio 35 (6-26); Blood Urea Nitrogen 24 mg/dL (8-23); Calcium 9.6 mg/dL (8.6-10.3); Carbon Dioxide 28 mEq/L (23-29); Chloride 96 mEq/L (98-107); Glucose 125 mg/dL (70-105); Osmolality,Calculated 280 (280-300); Potassium 4.6 mEq/L (3.5-5.1); Sodium 132 mEq/L (136-145); eGFR For African Americans > 60 (> 60); eGFR For Non-African Americans > 60 (> 60)
[2021-03-12] MEDS: Insulin LISPRO 300 UNITS/3 ML VIAL SUBQ SCH ×4 (10:04→21:22)
[2021-03-12] MEDS: *HR* Metformin 500 MG TABLET PO SCH ×2 (10:04→15:58)
[2021-03-12] MEDS: OXcarbazepine 150 MG TABLET PO SCH ×2 (10:04→21:21)
[2021-03-12] MEDS: Sennosides/Docusate Sodium TABLET PO SCH ×2 (10:04→21:21)
[2021-03-12] MEDS: Aspirin 81 MG TAB.CHEW PO SCH (10:04)
[2021-03-12] MEDS: *HR* Rivaroxaban 15 MG TABLET PO SCH (15:58)
[2021-03-12] MEDS: QUEtiapine Fumarate 25 MG TABLET PO SCH (21:21)
[2021-03-13] MEDS: Insulin LISPRO 300 UNITS/3 ML VIAL SUBQ SCH ×4 (07:19→20:34)
[2021-03-13] MEDS: OXcarbazepine 150 MG TABLET PO SCH ×2 (10:17→20:37)
[2021-03-13] MEDS: Sennosides/Docusate Sodium TABLET PO SCH ×2 (10:17→20:38)
[2021-03-13] MEDS: Aspirin 81 MG TAB.CHEW PO SCH (10:17)
[2021-03-13] MEDS: *HR* Metformin 500 MG TABLET PO SCH ×2 (10:17→17:12)
[2021-03-13] MEDS: *HR* Rivaroxaban 15 MG TABLET PO SCH (17:13)
[2021-03-13] MEDS: QUEtiapine Fumarate 25 MG TABLET PO SCH (20:37)
[2021-03-14] MEDS: Insulin LISPRO 300 UNITS/3 ML VIAL SUBQ SCH ×4 (07:45→22:34)
[2021-03-14] MEDS: *HR* Metformin 500 MG TABLET PO SCH ×2 (09:31→18:03)
[2021-03-14] MEDS: Sennosides/Docusate Sodium TABLET PO SCH ×2 (09:32→22:36)
[2021-03-14] MEDS: Aspirin 81 MG TAB.CHEW PO SCH (09:32)
[2021-03-14] MEDS: OXcarbazepine 150 MG TABLET PO SCH ×2 (09:32→22:36)
[2021-03-14] MEDS: *HR* Rivaroxaban 15 MG TABLET PO SCH (18:04)
[2021-03-14] MEDS: QUEtiapine Fumarate 25 MG TABLET PO SCH (22:37)
[2021-03-14] MEDS: Acetaminophen 325 MG TABLET PO PRN (22:40)
[2021-03-15] MEDS: Insulin LISPRO 300 UNITS/3 ML VIAL SUBQ SCH ×4 (07:43→20:18)
[2021-03-15] MEDS: *HR* Metformin 500 MG TABLET PO SCH ×2 (09:27→17:06)
[2021-03-15] MEDS: Aspirin 81 MG TAB.CHEW PO SCH (09:27)
[2021-03-15] MEDS: Sennosides/Docusate Sodium TABLET PO SCH ×2 (09:27→20:21)
[2021-03-15] MEDS: OXcarbazepine 150 MG TABLET PO SCH ×2 (09:28→20:20)
[2021-03-15] MEDS: *HR* Rivaroxaban 15 MG TABLET PO SCH (17:07)
[2021-03-15] MEDS: Acetaminophen 325 MG TABLET PO PRN (20:20)
[2021-03-15] MEDS: QUEtiapine Fumarate 25 MG TABLET PO SCH (20:20)
[2021-03-16] MEDS: Insulin LISPRO 300 UNITS/3 ML VIAL SUBQ SCH ×4 (08:59→20:43)
[2021-03-16] MEDS: Aspirin 81 MG TAB.CHEW PO SCH (09:00)
[2021-03-16] MEDS: OXcarbazepine 150 MG TABLET PO SCH ×2 (09:00→20:36)
[2021-03-16] MEDS: Sennosides/Docusate Sodium TABLET PO SCH ×2 (09:00→20:36)
[2021-03-16] MEDS: *HR* Metformin 500 MG TABLET PO SCH ×2 (09:01→17:11)
[2021-03-16] MEDS: *HR* Rivaroxaban 15 MG TABLET PO SCH (17:11)
[2021-03-16] MEDS: Acetaminophen 325 MG TABLET PO PRN (20:36)
[2021-03-16] MEDS: QUEtiapine Fumarate 25 MG TABLET PO SCH (20:37)
[2021-03-17] MEDS: Insulin LISPRO 300 UNITS/3 ML VIAL SUBQ SCH ×4 (08:53→20:09)
[2021-03-17] MEDS: Aspirin 81 MG TAB.CHEW PO SCH (08:59)
[2021-03-17] MEDS: Sennosides/Docusate Sodium TABLET PO SCH ×2 (08:59→20:08)
[2021-03-17] MEDS: OXcarbazepine 150 MG TABLET PO SCH ×2 (08:59→20:08)
[2021-03-17] MEDS: *HR* Metformin 500 MG TABLET PO SCH ×2 (08:59→16:02)
[2021-03-17] MEDS: *HR* HYDROcodone/Acet 5/325 mg TABLET PO PRN ×2 (09:50→20:08)
[2021-03-17] MEDS: *HR* Rivaroxaban 15 MG TABLET PO SCH (16:02)
[2021-03-17] MEDS: QUEtiapine Fumarate 25 MG TABLET PO SCH (20:09)
[2021-03-18] MEDS: Insulin LISPRO 300 UNITS/3 ML VIAL SUBQ SCH ×4 (08:13→20:20)
[2021-03-18] MEDS: *HR* Metformin 500 MG TABLET PO SCH ×2 (08:24→16:46)
[2021-03-18] MEDS: OXcarbazepine 150 MG TABLET PO SCH ×2 (08:24→20:17)
[2021-03-18] MEDS: Sennosides/Docusate Sodium TABLET PO SCH ×2 (08:24→20:16)
[2021-03-18] MEDS: Aspirin 81 MG TAB.CHEW PO SCH (08:24)
[2021-03-18] MEDS: *HR* Rivaroxaban 15 MG TABLET PO SCH (16:46)
[2021-03-18] MEDS: QUEtiapine Fumarate 25 MG TABLET PO SCH (20:15)
[2021-03-18] MEDS: *HR* HYDROcodone/Acet 5/325 mg TABLET PO PRN (20:16)
[2021-03-19] MEDS: OXcarbazepine 150 MG TABLET PO SCH ×2 (08:20→21:37)
[2021-03-19] MEDS: Aspirin 81 MG TAB.CHEW PO SCH (08:20)
[2021-03-19] MEDS: Insulin LISPRO 300 UNITS/3 ML VIAL SUBQ SCH ×4 (08:21→21:36)
[2021-03-19] MEDS: *HR* Metformin 500 MG TABLET PO SCH ×2 (08:21→17:57)
[2021-03-19] MEDS: Sennosides/Docusate Sodium TABLET PO SCH ×2 (08:22→21:37)
[2021-03-19] MEDS: *HR* Rivaroxaban 15 MG TABLET PO SCH (17:57)
[2021-03-19] MEDS: QUEtiapine Fumarate 25 MG TABLET PO SCH (21:37)
[2021-03-20] MEDS: Insulin LISPRO 300 UNITS/3 ML VIAL SUBQ SCH ×4 (08:55→20:30)
[2021-03-20] MEDS: OXcarbazepine 150 MG TABLET PO SCH ×2 (08:56→20:30)
[2021-03-20] MEDS: Aspirin 81 MG TAB.CHEW PO SCH (08:56)
[2021-03-20] MEDS: Sennosides/Docusate Sodium TABLET PO SCH ×2 (08:57→20:30)
[2021-03-20] MEDS: *HR* Metformin 500 MG TABLET PO SCH ×2 (08:57→17:38)
[2021-03-20] MEDS: *HR* HYDROcodone/Acet 5/325 mg TABLET PO PRN (12:26)
[2021-03-20] MEDS: *HR* Rivaroxaban 15 MG TABLET PO SCH (17:38)
[2021-03-20] MEDS: QUEtiapine Fumarate 25 MG TABLET PO SCH (20:30)
[2021-03-21] MEDS: Sennosides/Docusate Sodium TABLET PO SCH ×2 (09:08→20:15)
[2021-03-21] MEDS: *HR* Metformin 500 MG TABLET PO SCH ×2 (09:09→17:32)
[2021-03-21] MEDS: OXcarbazepine 150 MG TABLET PO SCH ×2 (09:09→20:16)
[2021-03-21] MEDS: Aspirin 81 MG TAB.CHEW PO SCH (09:09)
[2021-03-21] MEDS: Insulin LISPRO 300 UNITS/3 ML VIAL SUBQ SCH ×4 (09:10→21:51)
[2021-03-21] MEDS: *HR* Rivaroxaban 15 MG TABLET PO SCH (17:32)
[2021-03-21] MEDS: QUEtiapine Fumarate 25 MG TABLET PO SCH (20:15)
[2021-03-22 07:12] VITALS: PULSE 82; RESP 18; TEMP 97.9
[2021-03-22] MEDS: Insulin LISPRO 300 UNITS/3 ML VIAL SUBQ SCH ×2 (07:43→12:13)
[2021-03-22 08:31] VITALS: BP 100/64; O2SAT 96
[2021-03-22] MEDS: Sennosides/Docusate Sodium TABLET PO SCH (08:32)
[2021-03-22] MEDS: *HR* Metformin 500 MG TABLET PO SCH (08:32)
[2021-03-22] MEDS: Aspirin 81 MG TAB.CHEW PO SCH (08:32)
[2021-03-22] MEDS: OXcarbazepine 150 MG TABLET PO SCH (08:32)
== END 2021-03-22 13:00 | disposition home health service (06) | DRG 552 ==
LOC: INPPIK 16:58
PROVIDERS: ADMIT Family Medicine; ATTEND Family Medicine

== ENCOUNTER 2021-04-04 11:43 | Observation (INO) ==
[2021-04-04 12:32] LABS: Eosinophils % 0.9 %; Hematocrit 31.3 % (35.3-44.9); Hemoglobin 10.2 g/dL (11.5-15.4); Immature Granulocytes % 0.3 % (0-4); Lymphocytes % 19.1 %; Mean Corpuscular HGB Conc 32.6 g/dL (31.6-35.5); Mean Corpuscular Hemoglobin 29.7 pg (28.0-33.3); Mean Corpuscular Volume 91.3 fL (83.0-100.0); Mean Platelet Volume 9.3 fL (9.4-12.4); Monocytes % 6.5 %; Platelet Count 488 K/mcL (140-400); Red Blood Count 3.43 M/mcL (3.82-4.97); Red Cell Distribution Width 15.5 % (11.5-14.5); Segmented Neutrophils % 72.8 %; White Blood Count 11.9 K/mcL (4.3-11.1)
[2021-04-04 12:33] LABS: Basophils # 0.1 K/mcL (0.0-0.2); Basophils % 0.4 %; Eosinophils # 0.1 K/mcL (0.0-0.6); Lymphocytes # 2.3 K/mcL (0.6-4.6); Monocytes # 0.8 K/mcL (0.0-1.3); Neutrophils # 8.7 K/mcL (1.6-8.9)
[2021-04-04 12:41] LABS: INR 2.1; Prothrombin Time 23.6 Seconds (9.4-12.1)
[2021-04-04 12:49] LABS: Alanine Aminotransferase 9 Units/L (7-52); Albumin 4.2 g/dL (3.5-5.7); Albumin/Globulin Ratio 1.3 (1.1-2.2); Alkaline Phosphatase 61 Units/L (34-104); Aspartate Amino Transferase 13 Units/L (13-39); BUN/Creatinine Ratio 29 (6-26); Bilirubin,Total 0.5 mg/dL (0.3-1.0); Blood Urea Nitrogen 25 mg/dL (8-23); Calcium 9.7 mg/dL (8.6-10.3); Carbon Dioxide 27 mEq/L (23-29); Chloride 100 mEq/L (98-107); Globulin 3.3 g/dL (2.4-3.5); Glucose 112 mg/dL (70-105); Magnesium 1.7 mg/dL (1.6-2.6); Osmolality,Calculated 285 (280-300); Phosphorous 3.7 mg/dL (2.7-4.5); Potassium 4.3 mEq/L (3.5-5.1); Sodium 135 mEq/L (136-145); Total Protein 7.5 g/dL (6.4-8.9); eGFR For African Americans > 60 (> 60); eGFR For Non-African Americans > 60 (> 60)
[2021-04-04 12:53] LABS: Troponin I < 0.03 ng/mL (< 0.04)
[2021-04-04] MEDS ORDERED: Naloxone 0.4 MG/ML INJ IVP PRN (16:07)
[2021-04-04] MEDS ORDERED: Acetaminophen 325 MG TABLET PO PRN (16:08)
[2021-04-04] MEDS ORDERED: MOM Conc 10 ML UD.LIQ PO PRN (16:13)
[2021-04-04] MEDS ORDERED: Ondansetron 4 MG/2 ML VIAL IVP PRN (16:13)
[2021-04-04] MEDS ORDERED: *HR* Dextrose 50 % in Water (Syg) 50 ML SYRINGE IVP PRN (16:41)
[2021-04-04] MEDS ORDERED: D5% in Water 1,000 ML IVC PRN (16:41)
[2021-04-04] MEDS ORDERED: Dextrose Gel 15 GM/37.5 ML TUBE PO PRN ×2 (16:41)
[2021-04-04] MEDS: *HR* Metformin 500 MG TABLET PO SCH (18:14)
[2021-04-04] MEDS: OXcarbazepine 150 MG TABLET PO SCH (20:21)
[2021-04-04] MEDS: Insulin LISPRO 300 UNITS/3 ML VIAL SUBQ SCH (20:52)
[2021-04-05 06:19] LABS: Basophils # 0.1 K/mcL (0.0-0.2); Basophils % 0.5 %; Eosinophils # 0.1 K/mcL (0.0-0.6); Eosinophils % 1.1 %; Hematocrit 32.5 % (35.3-44.9); Hemoglobin 10.4 g/dL (11.5-15.4); Immature Granulocytes % 0.3 % (0-4); Lymphocytes # 2.5 K/mcL (0.6-4.6); Lymphocytes % 18.9 %; Mean Corpuscular Hemoglobin 29.5 pg (28.0-33.3); Mean Corpuscular Volume 92.1 fL (83.0-100.0); Monocytes # 0.9 K/mcL (0.0-1.3); Monocytes % 6.8 %; Neutrophils # 9.5 K/mcL (1.6-8.9); Platelet Count 472 K/mcL (140-400); Red Blood Count 3.53 M/mcL (3.82-4.97); Red Cell Distribution Width 15.5 % (11.5-14.5); Segmented Neutrophils % 72.4 %; White Blood Count 13.1 K/mcL (4.3-11.1)
[2021-04-05 06:43] LABS: BUN/Creatinine Ratio 28 (6-26); Blood Urea Nitrogen 24 mg/dL (8-23); Calcium 9.5 mg/dL (8.6-10.3); Carbon Dioxide 25 mEq/L (23-29); Chloride 101 mEq/L (98-107); Glucose 116 mg/dL (70-105); Osmolality,Calculated 287 (280-300); Potassium 4.6 mEq/L (3.5-5.1); Sodium 136 mEq/L (136-145); eGFR For African Americans > 60 (> 60); eGFR For Non-African Americans > 60 (> 60)
[2021-04-05] MEDS: Insulin LISPRO 300 UNITS/3 ML VIAL SUBQ SCH ×4 (12:44→20:48)
[2021-04-05] MEDS: *HR* Metformin 500 MG TABLET PO SCH ×2 (12:45→18:15)
[2021-04-05] MEDS: Aspirin 81 MG TAB.CHEW PO SCH (13:43)
[2021-04-05] MEDS: OXcarbazepine 150 MG TABLET PO SCH ×2 (13:44→20:55)
[2021-04-05] MEDS: *HR* Rivaroxaban 10 MG TABLET PO SCH (18:09)
[2021-04-06] MEDS: Aspirin 81 MG TAB.CHEW PO SCH (08:48)
[2021-04-06] MEDS: Insulin LISPRO 300 UNITS/3 ML VIAL SUBQ SCH ×4 (08:49→21:13)
[2021-04-06] MEDS: *HR* Metformin 500 MG TABLET PO SCH ×2 (08:50→16:45)
[2021-04-06] MEDS: OXcarbazepine 150 MG TABLET PO SCH ×2 (08:50→21:10)
[2021-04-06] MEDS: *HR* Rivaroxaban 10 MG TABLET PO SCH (16:46)
[2021-04-06] MEDS: *HR* HYDROcodone/Acet 5/325 mg TABLET PO PRN (21:10)
[2021-04-07] MEDS: *HR* HYDROcodone/Acet 5/325 mg TABLET PO PRN (06:08)
[2021-04-07] MEDS: *HR* Metformin 500 MG TABLET PO SCH ×2 (08:22→16:43)
[2021-04-07] MEDS: OXcarbazepine 150 MG TABLET PO SCH ×2 (08:22→21:22)
[2021-04-07] MEDS: Aspirin 81 MG TAB.CHEW PO SCH (08:22)
[2021-04-07] MEDS: Insulin LISPRO 300 UNITS/3 ML VIAL SUBQ SCH ×4 (08:22→21:26)
[2021-04-07 09:42] LABS: Basophils # 0.1 K/mcL (0.0-0.2); Basophils % 0.5 %; Eosinophils # 0.2 K/mcL (0.0-0.6); Eosinophils % 1.2 %; Hematocrit 30.7 % (35.3-44.9); Hemoglobin 9.8 g/dL (11.5-15.4); Immature Granulocytes % 0.3 % (0-4); Lymphocytes # 1.9 K/mcL (0.6-4.6); Lymphocytes % 14.2 %; Mean Corpuscular HGB Conc 31.9 g/dL (31.6-35.5); Mean Corpuscular Hemoglobin 29.6 pg (28.0-33.3); Mean Corpuscular Volume 92.7 fL (83.0-100.0); Mean Platelet Volume 10.1 fL (9.4-12.4); Monocytes # 0.8 K/mcL (0.0-1.3); Monocytes % 5.7 %; Neutrophils # 10.3 K/mcL (1.6-8.9); Platelet Count 426 K/mcL (140-400); Red Blood Count 3.31 M/mcL (3.82-4.97); Red Cell Distribution Width 15.4 % (11.5-14.5); Segmented Neutrophils % 78.1 %; White Blood Count 13.2 K/mcL (4.3-11.1)
[2021-04-07] MEDS: *HR* Rivaroxaban 10 MG TABLET PO SCH (16:43)
[2021-04-08 02:03] LABS: Bilirubin,Urine Negative (Negative); Blood,Urine Small (Negative); Clarity,Urine Cloudy (Clear); Color,Urine Yellow (Yellow); Glucose,Urine (UA) Normal (Normal); Ketones,Urine Negative (Negative); Leukocyte Esterase,Urine Small (Negative); Nitrite,Urine Positive (Negative); Protein,Urine Trace mg/dL (Neg-Trace); Specific Gravity,Urine 1.025 (1.010-1.025); Urobilinogen,Urine Normal (Normal)
[2021-04-08 02:14] LABS: Bacteria,Urine Many per hpf (None-Few); Squamous Epithelial Cell,Urine Few per hpf (None-Few)
[2021-04-08 02:15] LABS: WBC,Urine 50-100 per hpf (0-3)
[2021-04-08 02:18] LABS: Amorphous Sediment,Urine Few per hpf (None-Few); Triple Phosphate Crystal,Urine Present per hpf
[2021-04-08 02:19] LABS: Hyaline Casts,Urine Few per lpf (None Seen)
[2021-04-08] MEDS: Sulfamethoxazole/Trimeth DS 1 EACH TABLET PO SCH ×2 (08:28→19:47)
[2021-04-08] MEDS: OXcarbazepine 150 MG TABLET PO SCH ×2 (08:28→19:47)
[2021-04-08] MEDS: Aspirin 81 MG TAB.CHEW PO SCH (08:28)
[2021-04-08] MEDS: Insulin LISPRO 300 UNITS/3 ML VIAL SUBQ SCH ×4 (08:29→19:47)
[2021-04-08] MEDS: *HR* Metformin 500 MG TABLET PO SCH ×2 (08:29→16:38)
[2021-04-08 08:52] LABS: Basophils # 0.1 K/mcL (0.0-0.2); Basophils % 0.5 %; Eosinophils # 0.2 K/mcL (0.0-0.6); Eosinophils % 1.4 %; Hematocrit 29.2 % (35.3-44.9); Hemoglobin 9.4 g/dL (11.5-15.4); Immature Granulocytes % 0.3 % (0-4); Lymphocytes % 14.9 %; Mean Corpuscular HGB Conc 32.2 g/dL (31.6-35.5); Mean Corpuscular Hemoglobin 29.4 pg (28.0-33.3); Mean Corpuscular Volume 91.3 fL (83.0-100.0); Mean Platelet Volume 10.3 fL (9.4-12.4); Monocytes # 0.8 K/mcL (0.0-1.3); Monocytes % 6.1 %; Neutrophils # 10.2 K/mcL (1.6-8.9); Platelet Count 423 K/mcL (140-400); Red Cell Distribution Width 15.6 % (11.5-14.5); Segmented Neutrophils % 76.8 %; White Blood Count 13.3 K/mcL (4.3-11.1)
[2021-04-08 09:07] LABS: BUN/Creatinine Ratio 27 (6-26); Blood Urea Nitrogen 20 mg/dL (8-23); Calcium 9.1 mg/dL (8.6-10.3); Carbon Dioxide 26 mEq/L (23-29); Chloride 102 mEq/L (98-107); Glucose 124 mg/dL (70-105); Osmolality,Calculated 286 (280-300); Potassium 4.5 mEq/L (3.5-5.1); Sodium 136 mEq/L (136-145); eGFR For African Americans > 60 (> 60); eGFR For Non-African Americans > 60 (> 60)
[2021-04-08] MEDS: *HR* Rivaroxaban 10 MG TABLET PO SCH (16:38)
[2021-04-08] MEDS: *HR* HYDROcodone/Acet 5/325 mg TABLET PO PRN (19:46)
[2021-04-09] MEDS: Insulin LISPRO 300 UNITS/3 ML VIAL SUBQ SCH ×4 (07:30→21:06)
[2021-04-09] MEDS: Aspirin 81 MG TAB.CHEW PO SCH (08:31)
[2021-04-09] MEDS: OXcarbazepine 150 MG TABLET PO SCH ×2 (08:31→21:10)
[2021-04-09] MEDS: Sulfamethoxazole/Trimeth DS 1 EACH TABLET PO SCH ×2 (08:31→21:10)
[2021-04-09] MEDS: *HR* Metformin 500 MG TABLET PO SCH ×2 (08:32→18:37)
[2021-04-09 09:00] LABS: Basophils # 0.1 K/mcL (0.0-0.2); Basophils % 0.4 %; Eosinophils # 0.1 K/mcL (0.0-0.6); Eosinophils % 0.9 %; Hemoglobin 9.3 g/dL (11.5-15.4); Immature Granulocytes % 0.3 % (0-4); Lymphocytes # 1.5 K/mcL (0.6-4.6); Lymphocytes % 9.9 %; Mean Corpuscular HGB Conc 32.1 g/dL (31.6-35.5); Mean Corpuscular Hemoglobin 29.2 pg (28.0-33.3); Mean Corpuscular Volume 90.9 fL (83.0-100.0); Mean Platelet Volume 9.6 fL (9.4-12.4); Monocytes # 0.7 K/mcL (0.0-1.3); Monocytes % 4.9 %; Neutrophils # 12.7 K/mcL (1.6-8.9); Platelet Count 408 K/mcL (140-400); Red Blood Count 3.19 M/mcL (3.82-4.97); Red Cell Distribution Width 15.7 % (11.5-14.5); Segmented Neutrophils % 83.6 %; White Blood Count 15.2 K/mcL (4.3-11.1)
[2021-04-09 09:15] LABS: BUN/Creatinine Ratio 23 (6-26); Blood Urea Nitrogen 20 mg/dL (8-23); Calcium 9.2 mg/dL (8.6-10.3); Carbon Dioxide 26 mEq/L (23-29); Chloride 99 mEq/L (98-107); Glucose 106 mg/dL (70-105); Osmolality,Calculated 281 (280-300); Potassium 4.5 mEq/L (3.5-5.1); Sodium 134 mEq/L (136-145); eGFR For African Americans > 60 (> 60); eGFR For Non-African Americans > 60 (> 60)
[2021-04-09] MEDS: *HR* Rivaroxaban 15 MG TABLET PO SCH (18:37)
[2021-04-10 06:54] LABS: Basophils # 0.1 K/mcL (0.0-0.2); Basophils % 0.4 %; Eosinophils # 0.2 K/mcL (0.0-0.6); Eosinophils % 1.7 %; Hemoglobin 8.7 g/dL (11.5-15.4); Immature Granulocytes % 0.3 % (0-4); Lymphocytes # 1.7 K/mcL (0.6-4.6); Lymphocytes % 12.8 %; Mean Corpuscular HGB Conc 32.2 g/dL (31.6-35.5); Mean Corpuscular Hemoglobin 29.3 pg (28.0-33.3); Mean Corpuscular Volume 90.9 fL (83.0-100.0); Mean Platelet Volume 9.9 fL (9.4-12.4); Monocytes # 0.8 K/mcL (0.0-1.3); Monocytes % 5.8 %; Neutrophils # 10.4 K/mcL (1.6-8.9); Platelet Count 400 K/mcL (140-400); Red Blood Count 2.97 M/mcL (3.82-4.97); Red Cell Distribution Width 15.6 % (11.5-14.5); White Blood Count 13.2 K/mcL (4.3-11.1)
[2021-04-10 07:17] LABS: BUN/Creatinine Ratio 19 (6-26); Blood Urea Nitrogen 16 mg/dL (8-23); Calcium 9.1 mg/dL (8.6-10.3); Carbon Dioxide 26 mEq/L (23-29); Chloride 99 mEq/L (98-107); Glucose 128 mg/dL (70-105); Osmolality,Calculated 279 (280-300); Potassium 4.4 mEq/L (3.5-5.1); Sodium 133 mEq/L (136-145); eGFR For African Americans > 60 (> 60); eGFR For Non-African Americans > 60 (> 60)
[2021-04-10] MEDS: *HR* Metformin 500 MG TABLET PO SCH ×2 (09:34→16:58)
[2021-04-10] MEDS: Aspirin 81 MG TAB.CHEW PO SCH (09:34)
[2021-04-10] MEDS: Sulfamethoxazole/Trimeth DS 1 EACH TABLET PO SCH (09:34)
[2021-04-10] MEDS: OXcarbazepine 150 MG TABLET PO SCH ×2 (09:34→20:23)
[2021-04-10] MEDS: Insulin LISPRO 300 UNITS/3 ML VIAL SUBQ SCH ×4 (09:35→20:25)
[2021-04-10 15:32] LABS: Influenza A PCR Negative (Negative); Influenza B PCR Negative (Negative); Resp. Syncytial Virus PCR Negative (Negative)
[2021-04-10 15:48] LABS: SARS-CoV-2 by PCR (In House) Negative (Negative)
[2021-04-10] MEDS: *HR* Rivaroxaban 15 MG TABLET PO SCH (16:58)
[2021-04-11 03:12] VITALS: O2SAT 94
[2021-04-11 06:37] LABS: Basophils % 0.4 %; Eosinophils # 0.2 K/mcL (0.0-0.6); Eosinophils % 1.9 %; Hematocrit 27.1 % (35.3-44.9); Hemoglobin 9.3 g/dL (11.5-15.4); Immature Granulocytes % 0.3 % (0-4); Lymphocytes # 1.6 K/mcL (0.6-4.6); Mean Corpuscular HGB Conc 34.3 g/dL (31.6-35.5); Mean Corpuscular Hemoglobin 31.1 pg (28.0-33.3); Mean Corpuscular Volume 90.6 fL (83.0-100.0); Monocytes # 0.8 K/mcL (0.0-1.3); Monocytes % 7.4 %; Neutrophils # 8.2 K/mcL (1.6-8.9); Platelet Count 400 K/mcL (140-400); Red Blood Count 2.99 M/mcL (3.82-4.97); Red Cell Distribution Width 15.7 % (11.5-14.5)
[2021-04-11 06:53] LABS: BUN/Creatinine Ratio 22 (6-26); Blood Urea Nitrogen 19 mg/dL (8-23); Calcium 9.4 mg/dL (8.6-10.3); Carbon Dioxide 27 mEq/L (23-29); Chloride 99 mEq/L (98-107); Glucose 127 mg/dL (70-105); Osmolality,Calculated 282 (280-300); Potassium 4.9 mEq/L (3.5-5.1); Sodium 134 mEq/L (136-145); eGFR For African Americans > 60 (> 60); eGFR For Non-African Americans > 60 (> 60)
[2021-04-11 08:31] VITALS: BP 119/63; PULSE 81; RESP 16; TEMP 98.3
[2021-04-11] MEDS: Insulin LISPRO 300 UNITS/3 ML VIAL SUBQ SCH ×2 (09:02→11:38)
[2021-04-11] MEDS: Aspirin 81 MG TAB.CHEW PO SCH (09:07)
[2021-04-11] MEDS: OXcarbazepine 150 MG TABLET PO SCH (09:08)
[2021-04-11] MEDS: *HR* Metformin 500 MG TABLET PO SCH (09:08)
== END 2021-04-11 13:15 ==
LOC: INPPIK 11:43 → EMEROOPIK 11:43 → INPPIK 17:36
PROVIDERS: ADMIT Internal Medicine; ATTEND Internal Medicine